=== PATIENT | female | born 1995 | race Caucasian/White ===

== ENCOUNTER 2020-04-29 12:25 | Outpatient (CLI) | payer BC, MEDICAID, SELFPAY ==
--- NOTE | ~2020-04-29 | XR_ITS ---
XR lumbar spine 2-3V DATE: 04/29/2020 12:49 INDICATION: Radiculopathy TECHNIQUE: AP, lateral, coned lateral lumbosacral views COMPARISON: None FINDINGS: Normal alignment of the lumbar spine. No fracture or bone destruction or spondylolisthesis. Lumbar and lumbosacral interspaces are well preserved. Normal sacroiliac joints. Incidentally noted is a prominent of fecal material in the colon. IMPRESSION: Negative lumbar spine Reviewed, dictated and finalized at location A. IMPRESSION: Negative lumbar spine
== END 2020-04-29 12:26 | disposition home or self-care (01) ==
PROVIDERS: PCP Nurse Practitioner Family; Visit Provider Nurse Practitioner Family
DX: M54.16 Radiculopathy, lumbar region (principal)
CPT/HCPCS: 72100

== ENCOUNTER 2020-06-22 17:47 | Emergency (ER) | payer BC, SELFPAY ==
[2020-06-22 18:47] VITALS: PULSE 110; RESP 20; TEMP 37.3; O2SAT 100
--- NOTE | 2020-06-22 22:33 | PC.NURSE ---
Pt called twice with no answer.
== END 2020-06-22 22:33 | disposition left against medical advice (07) ==
PROVIDERS: PCP Nurse Practitioner Family
DX: Z53.21 Procedure and treatment not carried out due to patient leaving prior to being seen by health care provider (principal)
CPT/HCPCS: 99199

== ENCOUNTER → 2021-02-28 04:09 | Outpatient (CLI) | payer BC, SELFPAY ==
[2021-02-28 20:06] LABS: SARS-CoV-2 RNA PCR Negative
== END ==
PROVIDERS: PCP Nurse Practitioner Family; Visit Provider Obstetrics & Gynecology
DX: Z01.812 Encounter for preprocedural laboratory examination (principal); Z20.822 Contact with and (suspected) exposure to COVID-19
CPT/HCPCS: C9803; U0003; U0005

== ENCOUNTER 2021-02-28 09:43 | Outpatient (CLI) | payer BC, SELFPAY | END 2021-02-28 09:44 | disposition home or self-care (01) | LOC: ANHSURGERY 09:45 | PROVIDERS: PCP Nurse Practitioner Family; Visit Provider Obstetrics & Gynecology | DX: Z01.812 Encounter for preprocedural laboratory examination (principal); R10.2 Pelvic and perineal pain | CPT/HCPCS: 36415; 86850; 86900; 86901 ==

== ENCOUNTER 2021-03-03 04:00 | Day surgery (SDC) | payer BC, SELFPAY ==
[2021-02-23 11:44] VITALS: BMI 37.0
--- NOTE | 2021-02-28 13:06 | PM.IMHP ---
H&P: HPI History of Present Illness Date/Time: 02/28/21 13:06 25 year 1 para 1 admitted for diagnostic laparoscopy. She has pain, discomfort and dyspareunia. She has a family history of endometriosis. Ultrasound showed a lot of free fluid in pelvis. Risks and benefits reviewed including but not exclusive of , aspiration pneumonia, bleeding, transfusion, perforation injury to bowel, bladder, ureter, or other internal organs with need for open laparotomy. She received the [employer] handout entitled laparoscopy and had all questions answered in asked to proceed Chief Complaint: Pelvic pain Review of Systems Review of Systems: All systems reviewed & are unremarkable except as noted in HPI and below PMFSH Past Medical History Medical History Anxiety Depression Headache, migraine Surgical History Surgical History H/O section Family History Family History Grandparent Diabetes mellitus Non-Hodgkin lymphoma Dementia Cerebrovascular accident Mother Breast cancer Depression Father Alcohol abuse Bipolar affective disorder Grandparent Breast cancer Brain cancer Carcinoma of colon Grandparent Carcinoma of colon Social History Social History Smoking status: Never smoker Alcohol intake: never Substance use: never Substance use type: does not use Gender identity (if verbalized by the patient): Female Spiritual care concerns: No Meds Home Medications and Allergies Home Medications Medication Instructions Recorded Confirmed Type citalopram 20 mg PO DAILY 02/23/21 02/23/21 History cyclobenzaprine 10 mg PO HS PRN 02/23/21 02/23/21 History Allergies Allergy/AdvReac Type Severity Reaction Status Date / Time No Known Allergies Allergy Unknown Verified 02/23/21 11:42 Exam Const: General: no acute distress Eyes: General: appearance normal, both eyes and all related structures Neck: Neck: supple and no JVD Thyroid: thyroid normal Resp: Effort & Inspection: normal respiratory effort Auscultation: clear to auscultation bilaterally Cardio: Rate: regular rate Rhythm: regular rhythm GI: Inspection: non-distended GI Palp: Yes Soft to palpation, No Tenderness to palpation present (GI) and No Guarding due to palpation present (GI) Auscultation: normal bowel sounds : External Female Exam: normal external appearance Speculum Exam - Vagina: normal appearance of the vagina Speculum Exam - Cervix: Cervical os closed Bimanual exam- vagina & uterus: Uterine tenderness Bimanual Exam- Adnexa, other: tender Skin: General skin exam: no rashes or lesions noted Extrem: General: normal to inspection and no edema Psych: Mental Status: mental status grossly normal Affect: normal affect Assessment and Plan Additional Plan impression: Pelvic pain plan:Diagnostic laparoscopy
--- NOTE | 2021-03-02 12:47 | WPDANESEPPF ---
Anes - Initial Pre Proc Eval Procedure: Operation Date: 03/03/21 13:30 Proposed Procedures p Diagnostic Laparoscopy - Jackson Abdi MD Date/Time: 03/02/21 12:47 Surgeon: Jackson Abdi MD Pre Op Diagnosis: pelvic pain, irreg bleeding Patient Data Age: 25 Gender: F Height: 1.68 m Weight: 104.3 kg Allergies Allergy/AdvReac Type Severity Reaction Status Date / Time No Known Allergies Allergy Unknown Verified 03/03/21 12:13 Home Medications Medication Instructions Recorded Confirmed Type citalopram 20 mg PO DAILY 02/23/21 03/03/21 History cyclobenzaprine 10 mg PO HS PRN 02/23/21 03/03/21 History hydrocodone-acetaminophen 1 tablet PO Q4H PRN #30 tablet 03/03/21 Rx Patient hx anesthesia problems: none Family hx anesthesia problems: none PMFSH Past Medical History Medical History (Updated 03/03/21 @ 06:48 by Jackson Abdi MD) Anxiety Depression Headache, migraine Surgical History Surgical History H/O section Family History Family History Grandparent Diabetes mellitus Non-Hodgkin lymphoma Dementia Cerebrovascular accident Mother Breast cancer Depression Father Alcohol abuse Bipolar affective disorder Grandparent Breast cancer Brain cancer Carcinoma of colon Grandparent Carcinoma of colon Social History Social History Smoking status: Never smoker Alcohol intake: current Substance use: never Substance use type: does not use Living arrangements: with family Gender identity (if verbalized by the patient): Female Spiritual care concerns: No Anes - Eval Final PreProcedure Day of Procedure 03/02/21 12:47 Patient weight: obese Heart: regular rate and rhythm Lungs: clear to auscultation and normal air movement Airway: Mallampati scale class II Neurological: alert and oriented Last oral intake: >/= 8 hours ASA classification: II Emergent: no Anesthetic plan: proceed Anesthesia type and monitoring: general ETT and standard monitoring Informed Consent: The patient's anesthetic plan and its attendant risks and benefits were discussed with the patient/family/POA. Questions were solicited and answers provided to the satisfaction of the patient/family/POA.
[2021-03-03] VITALS (9 sets, daily range): BP systolic 103–130; BP diastolic 55–80; PULSE 78–108; RESP 12–20; TEMP 36.3–36.9; O2SAT 98–100
--- NOTE | 2021-03-03 06:47 | WPDHPUPDATE1 ---
History and Physical Update Update Date/Time: 03/03/21 06:47 History and Physical has been reviewed, including an updated exam of the patient. There are NO changes in the patient's condition. Risks, benefits, and alternatives have been discussed and questions answered. Patient agrees to proceed with procedure.
[2021-03-03] MEDS: ACETAMINOPHEN 500 MG TABLET 1000 MG PO (11:52)
[2021-03-03] MEDS: KETOROLAC 15 MG/ML VIAL (*BKC) IV PUSH (11:53)
[2021-03-03] MEDS: LACTATED RINGERS 1,000 ML 30 ML IV CONT ×2 (11:53→14:29)
--- NOTE | 2021-03-03 14:24 | PM.PROC ---
Procedure Note - Detailed Date of procedure: 03/03/21 Pre-op diagnosis: pelvic pain, irreg bleeding Surgeon: Jackson Abdi MD Postop diagnosis: Pelvic pain/endometriosis/irregular bleeding Procedure: Laparoscopy with destruction of endometriosis Anesthesia: General endotracheal EBL: 5cc Findings: 25cc of serosanguineous fluid in the cul-de-sac. Multiple areas of powder burn endometriosis along each uterosacral ligament. Normal-appearing ovaries and tubes. Normal-appearing appendix Complications: None Description of procedure: The patient was prepped and draped in the normal sterile fashion and placed in the dorsal lithotomy position. Under excellent general endotracheal anesthesia weighted speculum was placed the posterior fornix of vagina. Anterior lip of the cervix was grasped with a single-tooth tenaculum in the Gomes's cannula inserted to the cervix. The 2 were connected together it to be used for uterine manipulation. The bladder emptied of clear urine and the weighted speculum removed. Gloves were changed An infraumbilical incision was made the Veress needle passed in the abdomen. The abdomen filled with CO2 gas [id number]. The 5mm trocar advanced under direct visualization assuring no injury. Patient placed in Trendelenburg and a suprapubic incision made. The 5mm trocar was advanced under direct visualization assuring no injury. The 25cc of serosanguineous fluid was suctioned from the cul-de-sac. The areas of endometriosis along the uterosacral ligament were cauterized at 45 w per 2nd. Irrigation undertaken to clear. No other abnormalities were seen. The lower site removed. The gas removed from the abdomen. The incisions closed with 4 O Monocryl and glue after the ports removed. The patient tolerated the procedure well. All sponge, needle, instrument counts were correct. There were no immediate complications
[2021-03-03] MEDS: fentaNYL CITRATE INJ (*CRX) 100 MCG/2 ML VIAL 25 MCG IV PUSH ×5 (14:57→15:24)
[2021-03-03] MEDS: oxyCODONE HCL (*CRX) 5 MG TAB IR PO (15:22)
--- NOTE | 2021-03-03 15:34 | SUR.PHASEI ---
PT AWAKE, RESTING QUIETLY. STATES SHES SORE BUT IM OK
== END 2021-03-03 16:25 | disposition home or self-care (01) ==
PROVIDERS: PCP Nurse Practitioner Family; Visit Provider Obstetrics & Gynecology
PROC: (CPT 49320; principal; 2021-03-03 13:30)
DX: R10.2 Pelvic and perineal pain (principal); N93.9 Abnormal uterine and vaginal bleeding, unspecified; N80.3 Endometriosis of pelvic peritoneum; N94.10 Unspecified dyspareunia; F41.8 Other specified anxiety disorders
CPT/HCPCS: 58662; A9270; J0330; J1100; J1885; J2250; J2405; J2704; J3010; J7120

== ENCOUNTER 2021-04-15 13:08 | Emergency (ER) | payer BC, SELFPAY ==
[2021-04-15 13:14] VITALS: BP 127/76; PULSE 113; RESP 20; TEMP 37; O2SAT 100
--- NOTE | 2021-04-15 14:12 | ED.SKABFB ---
HPI - Skin/Abscess/Foreign Bdy General Chief complaint: Skin/Abscess/Foreign Body Stated complaint: right cheek swollen and red Source: patient Mode of arrival: ambulatory Limitations: no limitations History of Present Illness HPI narrative: Patient is a 25 year old female who presents with abscess to right face. Patient reports being seen at [facility] on and started on retinae cream. Patient reports abscess increasing in size and pain. Patient denies drainage, denies fever, chills or body aches. Patient has no significant medical history or other complaints at this time. MD complaint: abscess/boil Related Data Home Medications Medication Instructions Recorded Confirmed cyclobenzaprine 10 mg PO HS PRN 02/23/21 04/15/21 citalopram 10 mg PO DAILY 04/15/21 04/15/21 gabapentin 300 mg PO DAILY 04/15/21 04/15/21 tretinoin 0.025 applic TOPICAL DAILY 04/15/21 04/15/21 Allergies Allergy/AdvReac Type Severity Reaction Status Date / Time No Known Allergies Allergy Unknown Verified 04/15/21 13:33 Review of Systems Review of Systems: Narrative: CONSTITUTIONAL: Denies fever, chills, or sweats. EYES: Denies visual changes, redness, or discharge. ENT: Denies rhinorrhea, congestion, sore throat, or otalgia. CARDIOVASCULAR: Denies chest pain, palpitations, or edema. RESPIRATORY: Denies cough or dyspnea. GASTROINTESTINAL: Denies abdominal pain, nausea, vomiting, or diarrhea. GENITOURINARY: Denies dysuria or hematuria. SKIN: Reports abscess to right face MUSCULOSKELETAL: Denies back pain, joint pain, or myalgia. NEUROLOGIC: Denies headache, numbness, dizziness, or weakness. PSYCHIATRIC: Denies anxiety or depression. [facility] Past Medical History Medical History (Updated 04/15/21 @ 14:22 by FERCHO Zazueta) Anxiety Depression Headache, migraine Surgical History Surgical History H/O section Family History Family History Grandparent Diabetes mellitus Non-Hodgkin lymphoma Dementia Cerebrovascular accident Mother Breast cancer Depression Father Alcohol abuse Bipolar affective disorder Grandparent Breast cancer Brain cancer Carcinoma of colon Grandparent Carcinoma of colon Social History Social History Smoking status: Never smoker Alcohol intake: current Substance use: never Substance use type: does not use Gender identity (if verbalized by the patient): Female Spiritual care concerns: No Comments At the time of signature, I have reviewed and agree with nursing past medical, surgical, social, and family history unless otherwise noted. Please see nursing chart for further information. There is no relevant family history pertinent to the presenting complaint. Exam Narrative: Exam Narrative: GENERAL: Well-appearing, well-nourished, and in no acute distress. HEAD: Normocephalic, atraumatic. EYES: EOMI. No redness or drainage. Conjunctiva are normal. ENT: Mucous membranes pink and moist. CHEST: No respiratory distress. HEART: Regular rate and rhythm. EXTREMITIES: Normal range of motion. No edema. SKIN: Approximate 3 x 3 cm area of erythema and edema to right face, scabbing noted in center, patient denies drainage, tender with palpation NEURO: No focal deficits. Alert and oriented x3. Gait steady. PSYCH: Normal affect. No signs of depression or anxiety. Course Vital Signs Vital signs: Vital Signs Temperature 37.0 C 04/15/21 13:14 Pulse Rate 113 H 04/15/21 13:14 Respiratory Rate 04/15/21 13:14 Blood Pressure 127/76 04/15/21 13:14 Pulse Oximetry 100 04/15/21 13:14 Temperature 37.0 C 04/15/21 13:14 Pulse Rate 113 H 04/15/21 13:14 Respiratory Rate 04/15/21 13:14 Blood Pressure 127/76 04/15/21 13:14 Pulse Oximetry 100 04/15/21 13:14 Rev
[2021-04-15] MEDS: TETANUS,DIPHTHERIA,AC PERTUSSIS ADULT (0.5 ML) BOOSTRIX IM (14:44)
[2021-04-15] MEDS: KETOROLAC (*BKC) 60 MG/2 ML VIAL IM (14:45)
== END 2021-04-15 15:03 | disposition home or self-care (01) ==
PROVIDERS: Emergency Provider Nurse Practitioner; PCP Nurse Practitioner Family
DX: L03.211 Cellulitis of face (principal); L02.01 Cutaneous abscess of face; Z23 Encounter for immunization; F41.9 Anxiety disorder, unspecified
CPT/HCPCS: 10160; 90471; 90715; 96372; 99213; G0463; J1885

== ENCOUNTER 2021-05-01 09:56 | Emergency (ER) | payer BC, SELFPAY ==
[2021-05-01 10:04] VITALS: BP 130/76; PULSE 92; RESP 16; TEMP 36.8; O2SAT 100
[2021-05-01 10:23] VITALS: BP 130/76; PULSE 92; RESP 16; TEMP 36.8; O2SAT 100
--- NOTE | 2021-05-01 10:46 | ED.EYEPROB ---
HPI - Eye Problem General Chief complaint: Skin/Abscess/Foreign Body Stated complaint: Right eye swollen Time Seen by Provider: 05/01/21 10:47 Source: patient, RN notes reviewed and old records reviewed Mode of arrival: ambulatory Limitations: no limitations History of Present Illness HPI Narrative: 25 year old female who presents to [facility] care with complaints of having pimple type of lesion to the right side of her upper face near hairline she noted yesterday which she squeezed with clear fluid coming out. She reports this morning she noted swelling of her right upper face and to her right upper eyelid with some discomfort going to her right ear. Patient reports that she has no visual changes with no sharp pain in her eye, visual acuity 20/20 to bilateral eyes with no corrective lenses. Patient stats that she had right cheek lesion drained on April 15 and was put on antibiotics. Patient denies any known fevers, chills or sweats, has been taking Tylenol for her discomfort. MD chief complaint: other (swollen right eyelid) Onset (ago): day(s) (1) Onset description: sudden Duration: constant Location: right eye (upper eyelid) Place: other (no injury to eye) Severity scale (1-10): 6 If Pain, Quality: aching Context: other (pimple type of lesion on her upper right face) Treatments Prior to Arrival: other (Tylenol) Related Data Home Medications Medication Instructions Recorded Confirmed gabapentin 300 mg PO HS 04/15/21 05/01/21 citalopram 20 mg PO DAILY 05/01/21 05/01/21 tretinoin 1 applic TOPICAL DAILY 05/01/21 05/01/21 Allergies Allergy/AdvReac Type Severity Reaction Status Date / Time No Known Allergies Allergy Unknown Verified 05/01/21 10:23 Review of Systems Review of Systems: Narrative: CONSTITUTIONAL: Denies fever, chills, or sweats. EYES: Denies visual changes, redness, or discharge.swelling to right upper eyelid ENT: Denies rhinorrhea, congestion, sore throat, or otalgia. CARDIOVASCULAR: Denies chest pain, palpitations, or edema. RESPIRATORY: Denies cough or dyspnea. GASTROINTESTINAL: Denies abdominal pain, nausea, vomiting, or diarrhea. GENITOURINARY: Denies dysuria or hematuria. SKIN: Denies rash or itching.scabbed lesion to right temporal hairline with some surrounding redness no induration of tissue.. MUSCULOSKELETAL: Denies back pain, joint pain, or myalgia. NEUROLOGIC: Denies headache, numbness, or weakness. PSYCHIATRIC: Denies anxiety or depression. All systems reviewed & are unremarkable except as noted in HPI and below PMFSH Past Medical History Medical History (Updated 05/02/21 @ 15:48 by Tracy Bravo NP) Anxiety Depression Headache, migraine Surgical History Surgical History (Updated 05/01/21 @ 11:01 by Tracy Bravo NP) H/O section Hx of laparoscopy removal of ovarian cyst, endometriosis Family History Family History Grandparent Diabetes mellitus Non-Hodgkin lymphoma Dementia Cerebrovascular accident Mother Breast cancer Depression Father Alcohol abuse Bipolar affective disorder Grandparent Breast cancer Brain cancer Carcinoma of colon Grandparent Carcinoma of colon Social History Social History Smoking status: Never smoker Alcohol intake: current Alcohol use details: twice a year Substance use: never Substance use type: does not use Gender identity (if verbalized by the patient): Female Spiritual care concerns: No Comments At time of signature, agree with nursing past medical, surgical, social and family history. There is no relevant family history pertinent to the presenting complaint Exam Narrative: Exam Narrative: GENERAL: Well-appearing, well-nourished, and in no acute distress. HEAD: Normocephalic, atraumatic. EYES: PERRLA and EOMI.no sharp pain to eye sclera clear and conjunct
== END 2021-05-01 11:10 | disposition home or self-care (01) ==
PROVIDERS: Emergency Provider Registered Nurse; PCP Nurse Practitioner Family
DX: L02.01 Cutaneous abscess of face (principal); H02.841 Edema of right upper eyelid; F41.9 Anxiety disorder, unspecified; F32.9 Major depressive disorder, single episode, unspecified
CPT/HCPCS: 99213; G0463

== ENCOUNTER 2022-05-31 14:22 | Outpatient (RCR) | payer BC, OTHER, SELFPAY ==
[2022-04-12 11:42] VITALS: BP 112/73; PULSE 95
[2022-04-19 10:24] VITALS: BP 109/64; PULSE 91
[2022-04-26 10:35] VITALS: BP 114/72; PULSE 100
[2022-05-03 09:54] VITALS: BP 116/76; PULSE 90
[2022-05-10 13:02] VITALS: BP 121/76; PULSE 95
[2022-05-16 10:46] VITALS: BP 115/67; PULSE 89
[2022-05-24 10:13] VITALS: BP 130/79; PULSE 97
[2022-05-31 14:59] VITALS: BP 121/77; PULSE 82
== END 2022-07-11 10:07 | disposition home or self-care (01) ==
LOC: ANHOBOP 14:22
PROVIDERS: PCP Nurse Practitioner Family; Visit Provider Obstetrics & Gynecology
DX: O36.8990 Maternal care for other specified fetal problems, unspecified trimester, not applicable or unspecified (principal); Q27.0 Congenital absence and hypoplasia of umbilical artery; Z3A.31 31 weeks gestation of pregnancy; Z3A.33 33 weeks gestation of pregnancy; Z3A.34 34 weeks gestation of pregnancy; Z3A.35 35 weeks gestation of pregnancy; Z3A.37 37 weeks gestation of pregnancy; Z3A.38 38 weeks gestation of pregnancy
CPT/HCPCS: 59025

== ENCOUNTER 2022-06-06 13:27 | Outpatient (CLI) | payer BC, OTHER, SELFPAY ==
[2022-06-06 13:46] LABS: Hematocrit 32.2 % (37.0-47.0); Hemoglobin 10.3 g/dL (12.0-15.0); Mean Corpuscular Hemoglobin 26.4 pg (26-34); Mean Corpuscular Volume 82.6 fl (80-100); Mean Platelet Volume 8.3 fl (7.4-10.4); Platelet Count Result 277 k/mm3 (150-375); Red Cell Distribution Width 14.1 % (11.5-14.5); White Blood Count 8.4 K/mm3 (4.5-10.0)
[2022-06-07 07:20] LABS: Rapid Plasma Reagin Non-Reactive (NonReactive)
== END 2022-06-06 13:28 | disposition home or self-care (01) ==
LOC: ANHLAB 13:31
PROVIDERS: PCP Nurse Practitioner Family; Visit Provider Obstetrics & Gynecology
DX: Z01.818 Encounter for other preprocedural examination (principal)
CPT/HCPCS: 36415; 85027; 86592; 86850; 86900; 86901

== ENCOUNTER 2022-06-07 05:28 | Inpatient (IN) | payer BC, OTHER, SELFPAY ==
--- NOTE | 2022-06-04 18:05 | PM.IMHP ---
H&P: HPI History of Present Illness Date/Time: 06/04/22 18:05 Chief Complaint: Term with previous section Narrative: A 26-year-old 2 para 1 whose last menstrual period was unknown September 10, EDC is 06/02/2022, confirmed 6 week ultrasound presents at term for repeat section. Her been complicated by 2 vessel cord but testing has been reassuring. She is negative for group B strep PMFSH Past Medical History Medical History Anxiety Depression Headache, migraine Surgical History Surgical History H/O section Hx of laparoscopy removal of ovarian cyst, endometriosis Family History Family History Grandparent Diabetes mellitus Non-Hodgkin lymphoma Dementia Cerebrovascular accident Mother Breast cancer Depression Father Alcohol abuse Bipolar affective disorder Grandparent Breast cancer Brain cancer Carcinoma of colon Grandparent Carcinoma of colon Social History Social History Smoking status: Never smoker Alcohol intake: current Alcohol use details: twice a year Substance use: never Substance use type: does not use Gender identity (if verbalized by the patient): Female Spiritual care concerns: No Meds Home Medications and Allergies Home Medications Medication Instructions Recorded Confirmed Type vit no.95-ferrous 1 tablet PO DAILY 04/12/22 04/26/22 History fumarate 28 mg-folic acid 800 mcg tablet () cyclobenzaprine 10 mg tablet 10 mg PO TID PRN Back Pain 04/26/22 04/26/22 History sertraline 50 mg tablet 50 mg PO DAILY 04/26/22 04/26/22 History Allergies Allergy/AdvReac Type Severity Reaction Status Date / Time No Known Allergies Allergy Unknown Verified 05/01/21 10:23 Exam Const: General: cooperative, healthy appearing and comfortable Resp: Effort & Inspection: normal respiratory effort Cardio: Rate: regular rate Rhythm: regular rhythm GI: Inspection: normal to inspection : External Female Exam: normal external appearance Bimanual exam- vagina & uterus: enlarged and soft Assessment and Plan Assessment and plan (1) Term : Code(s): Z34.90 - Encounter for supervision of normal , unspecified, unspecified trimester Status: Acute (2) Previous section: Code(s): Z98.891 - History of uterine scar from previous surgery Status: Acute (3) 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
--- NOTE | 2022-06-06 12:53 | P.PNAN_ITS ---
Anes - Initial Pre Proc Eval Procedure: Operation Date: 06/07/22 12:00 Proposed Procedures p Repeat Section - Jackson Florez MD Date/Time: 06/06/22 12:53 Surgeon: Jackson Florez MD Pre Op Diagnosis: C/S Patient Data Age: 26 Gender: F Height: Weight: Allergies Allergy/AdvReac Type Severity Reaction Status Date / Time No Known Allergies Allergy Unknown Verified 05/01/21 10:23 Home Medications Medication Instructions Recorded Confirmed Type vit no.95-ferrous 1 tablet PO DAILY 04/12/22 06/07/22 History fumarate 28 mg-folic acid 800 mcg tablet () cyclobenzaprine 10 mg tablet 10 mg PO TID PRN Back Pain 04/26/22 06/07/22 History sertraline 50 mg tablet 50 mg PO DAILY 04/26/22 06/07/22 History hydrocodone 5 mg-acetaminophen 325 1 tablet PO Q4H PRN pain #30 tabs 06/07/22 Rx mg tablet Patient hx anesthesia problems: none Family hx anesthesia problems: none Results Review: All pre-operative results and documents have been reviewed as part of the pre- operative evaluation. [facility] Past Medical History Medical History Anxiety Depression Headache, migraine Surgical History Surgical History H/O section Hx of laparoscopy removal of ovarian cyst, endometriosis Family History Family History Grandparent Diabetes mellitus Non-Hodgkin lymphoma Dementia Cerebrovascular accident Mother Breast cancer Depression Father Alcohol abuse Bipolar affective disorder Grandparent Breast cancer Brain cancer Carcinoma of colon Grandparent Carcinoma of colon Social History Social History Smoking status: Never smoker Alcohol intake: current Alcohol use details: twice a year Substance use: never Substance use type: does not use Gender identity (if verbalized by the patient): Female Spiritual care concerns: No Anes - Eval Final PreProcedure Day of Procedure 06/06/22 12:53 Patient weight: obese Heart: regular rate and rhythm Lungs: clear to auscultation and normal air movement Airway: Mallampati scale class II Neurological: alert and oriented Last oral intake: >/= 8 hours ASA classification: II Emergent: no Anesthetic plan: proceed Anesthesia type and monitoring: regional spinal and standard monitoring Results Review: All pre-operative results and documents have been reviewed as part of the pre- operative evaluation. Informed Consent: The patient's anesthetic plan and its attendant risks and benefits were discussed with the patient/family/POA. Questions were solicited and answers provided to the satisfaction of the patient/family/POA.
[2022-06-07] VITALS (54 sets, daily range): BP systolic 109–144; BP diastolic 66–115; PULSE 56–106; RESP 11–20; TEMP 36.2–37.1; O2SAT 96–100; BMI 39.8
--- NOTE | 2022-06-07 05:40 | LDADM ---
This patient, Ankita De La Cruz, was admitted to Labor/Delivery/Recovery 120 on 06/07/22 at 05:28. Plans for labor, pain management and were discussed with patient. Patient/family oriented to hospital policies and general routines including ID bracelet, bed and alarms, visiting hours, pain management, procedures, bathroom and other care routines, personal items, smoking policy, room service/diet and guest tray routines, security routines, and visiting hours. Patient/Family are encouraged to report perceived risks to care and to ask questions if they do not understand what they are told or what they should do. See [facility]BIX for further documentation.
--- NOTE | 2022-06-07 06:41 | WPDHPUPDATE1 ---
History and Physical Update Update Date/Time: 06/07/22 06:41 History and Physical has been reviewed, including an updated exam of the patient. There are NO changes in the patient's condition. Risks, benefits, and alternatives have been discussed and questions answered. Patient agrees to proceed with procedure.
[2022-06-07] MEDS: LACTATED RINGERS 1,000 ML 999 ML IV CONT (06:56)
[2022-06-07] MEDS: ceFAZolin 2 GM/D5W 50 ML 2 GM/50 ML BAG IVPB (07:23)
--- NOTE | 2022-06-07 08:13 | W.PM.PROC2 ---
Procedure Note - Detailed Date of Procedure 06/07/22 Pre-op Diagnosis C/S Post-op Diagnosis Same Procedure Performed Repeat low-transverse section Surgeon Jackson Florez MD Anesthesia Spinal Indications This is a 26-year-old at term with previous section for repeat section Findings Male infant 7lb 15oz Apgars 7 and 9 [id number] respectively normal-appearing ovaries and tubes as well as gravid uterus Description of Procedure Patient is prepped draped in normal sterile fashion placed in supine position. Under excellent spinal anesthetic the abdomen is entered through the previous Pfannenstiel incision progressive layers of fascia. Fascia incised midline care number out fashion bilaterally. Underlying muscles sharply dissected parietal peritoneum male by Isela clamps. This was carried superiorly and inferiorly dome bladder. Bladder blade was placed the bladder flap flap formed. Bladder blade returned low-transverse incision made the head delivered in the BELTRAN position. Nuchal cord checked noted be loose x1 we II occiput. Anterior posterior shoulder delivered spontaneously cord clamped [address] passed off the table then excellent cry given Apgars was 7 and 9 at 1 and 5minutes respectively. Placenta then delivered intact manually. Uterus delivered on the abdomen wrapped in moist towel. After assuring no membranes or debris remained in the uterus, the uterus closed continuous running 0 Vicryl from lateral edge to lateral edge. This was followed by 2nd imbricating running locking 0 Vicryl from lateral edge to lateral edge. Hemostasis was assured the ovaries and tubes appeared within normal limits uterus returned the abdomen. Laps removed and accounted for clot and debris removed from the abdomen the hysterotomy incision inspected 1 last time and noted to be hemostatic. The fascia then closed with continuous running 0 Vicryl from lateral edge to midline bilaterally. Irrigation subcutaneous layer and the skin closed with 4 0 Vicryl and glue. Blood loss was 745 QBL. All sponge, needle, instrument counts were correct. There were no immediate complications Estimated Blood Loss 745 Drains No Packing No Pathology None sent Complications No immediate complications Condition Stable Disposition Floor
[2022-06-07] MEDS: OXYTOCIN 30 UNITS/NS 500 ML 30 UNITS/500 ML BAG 125 UNITS IV CONT (08:45)
[2022-06-07] MEDS: LACTATED RINGERS 1,000 ML 125 ML IV CONT (08:45)
--- NOTE | 2022-06-07 09:45 | PC.NURSE ---
Seymour Florez updated with pt QBL. Order received for pt to have Methergine x1.
[2022-06-07] MEDS: METHYLERGONOVINE MALEATE 0.2 MG/ML VIAL IM (09:50)
[2022-06-07] MEDS: LORATADINE 10 MG TABLET PO (09:51)
[2022-06-07] MEDS: MORPHINE SULFATE INJ (*CRX) 10 MG/ML AMP 2 MG IV PUSH (10:20)
--- NOTE | 2022-06-07 10:49 | PC.NURSE ---
Dr. Seymour Florez at the bedside assessing bleeding. MD helm with bleeding at this time. Okay for pt to be transferred to
--- NOTE | 2022-06-07 11:00 | OBPPTRN ---
Patient transferred to post room #285 via stretcher. Support person present. Oriented to unit, room, information board, rooming in, admission packet and security measures. Patient verbalizes understanding.
[2022-06-07] MEDS: HYDROcodone/acetaminophen (*CRX) 5-325 MG TABLET 1 TAB PO ×3 (12:09→18:32)
[2022-06-07] MEDS: diphenhydrAMINE HCl INJ 50 MG/ML VIAL 25 MG IV PUSH ×2 (12:23→15:40)
[2022-06-07] MEDS: DEXTROSE 5%/0.45% SOD CHL 1,000 ML 125 ML IV CONT (13:10)
[2022-06-07] MEDS: IBUPROFEN 600 MG TABLET PO ×2 (15:15→21:30)
[2022-06-07] MEDS: POLYSACCHARIDE IRON COMPLEX 150 MG CAPSULE PO (16:02)
[2022-06-07] MEDS: MULTIVIT/MIN/PREN/FOL AC/IRON TABLET 1 TAB PO (16:02)
[2022-06-07] MEDS: DOCUSATE SODIUM 100 MG CAPSULE PO (16:02)
[2022-06-07] MEDS: HYDROcodone/acetaminophen (*CRX) 10-325 MG TABLET 1 TAB PO (21:30)
[2022-06-08] MEDS: HYDROcodone/acetaminophen (*CRX) 10-325 MG TABLET 1 TAB PO ×7 (01:48→22:10)
--- NOTE | 2022-06-08 04:48 | PM.OBPNVD ---
OB - PN: Subj Subjective Date/time seen: 06/08/22 04:48 Patient comments: no complaints and pain well controlled baby status: doing well OB - PN A/P Plan day: 1 Plan: routine care Time Spent With Patient Time: Total time spent is greater than 50% in coordination of care (as documented) at patient's floor/unit and/or counseling patient: Time with patient: less than 15 minutes Exam Const: General: cooperative, healthy appearing and comfortable Resp: Effort & Inspection: normal respiratory effort GI: Inspection: normal to inspection and incision (Clean dry and intact)
--- NOTE | 2022-06-08 04:50 | PM.DS ---
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 Her hospital course was unremarkable thereafter. She remained afebrile. She was up, voiding without difficulty, ambulating, generally without complaints. Routine discharge instructions were given Time Spent with Patient Time attestation: Total time spent providing and/or coordinating discharge services: Discharge Plan Discharge Attending physician on discharge: Jackson Gerardo Discharging Clinician: Jackson Gerardo Patient Disposition: Home, Self-Care Activity: may shower, no straining and pelvic rest Diet: heart healthy Wound Care Instructions: follow printed instructions Discharge Instructions: Education: Mom and Baby Guide Given to: Mother Follow-Up: Call your delivering provider's office for an appointment to be seen in: 4 Weeks Mom and baby should come to the [facility] for the follow-up appointment. Appointment Date/Time: June 11, 2022 at 10:00 am What to expect at your follow-up visit: Blood Pressure Check Physical Assessment Call [phone] if you are unable to keep your appointment time. BREAST CARE: * Wear a snug supportive bra. * For engorgement discomfort: Breast Feeding: * Apply warm moist washcloths * Express milk as needed to relieve engorgement * Wear loose clothing * For sore nipples: * Identify correct latch-on * Apply warm moist washcloths before and after nursing * Air dry nipples after nursing * May apply Lansinoh cream to nipples ABDOMINAL INCISION: * Allow incision to air dry * Do NOT use lotions for powders on your incision * When showering, allow soap and water to run over the incision, but do not wash incision PERINEAL CARE: * Until bleeding stops, use your rusty bottle after urinating * Change your pad frequently throughout the day * You may take sitz baths several times a day (fill your bathtub with warm water and soak for 20 minutes.) Do NOT bathe in the water * No tub baths until seen by your physician - You may shower ACTIVITY: * Rest as much as possible. * Do not exercise or lift anything heavier than your baby (such as laundry or other children.) * Avoid stairs or driving as much as possible. * Do not put anything into the vagina. No douching, tampons, or sexual activity until seen by physician. NOTIFY PHYSICIAN IF YOU HAVE ANY QUESTIONS OR IF ANY OF THE FOLLOWING SYMPTOMS OCCUR: * If your incision becomes red, swollen, or more painful than what you have experienced in the hospital. * If your vaginal bleeding becomes foul smelling. * If your vaginal bleeding becomes more heavy than a period or if your bleeding changes from pink to bright red. However, you may pass an occasional walnut-sized clot once or twice for the first week . * If you experience a sharp, shooting pain in you calves. * If you discover a hard, reddened area on your breast or if you experience flu-like symptoms. DIET: * Eat regular, well-balanced meals. * Drink plenty of fluids daily. If , drink to thirst. Call or return if temperature above 100.4? F, increased abdominal pain, increased vaginal bleeding or any new problems. Patient Instructions: Antibiotic Form Stand
[2022-06-08] MEDS: IBUPROFEN 600 MG TABLET PO ×3 (04:52→18:58)
[2022-06-08 06:12] LABS: Basophils Percent Auto 0.3 % (0.2-1.2); Eosinophils Percent Auto 0.4 % (0-4.4); Hematocrit 28.4 % (37.0-47.0); Immature Granulocyte Absolute 0.04 K/mm3 (0.00-0.031); Immature Granulocyte Percent A 0.4 % (0-0.5); Lymphocytes Absolute Auto 2.31 K/mm3 (0.9-3.2); Lymphocytes Percent Auto 21.9 % (18.3-44.2); Mean Corpuscular HGB Conc 31.7 g/dl (32-36); Mean Corpuscular Hemoglobin 26.6 pg (26-34); Mean Platelet Volume 8.8 fl (7.4-10.4); Monocytes Percent Auto 9.8 % (2.6-8.5); Neutrophils Absolute Auto 7.1 K/mm3 (1.3-6.7); Neutrophils Percent Auto 67.2 % (45.5-73.1); Platelet Count Result 249 k/mm3 (150-375); Red Blood Count 3.38 M/mm3 (4.2-5.4); Red Cell Distribution Width 14.1 % (11.5-14.5); White Blood Count 10.6 K/mm3 (4.5-10.0)
[2022-06-08] MEDS: MULTIVIT/MIN/PREN/FOL AC/IRON TABLET 1 TAB PO (07:42)
[2022-06-08] MEDS: POLYSACCHARIDE IRON COMPLEX 150 MG CAPSULE PO ×2 (07:43→16:12)
[2022-06-08] MEDS: DOCUSATE SODIUM 100 MG CAPSULE PO ×2 (07:43→16:13)
[2022-06-08 08:00] VITALS: PULSE 83; RESP 18; O2SAT 100
--- NOTE | 2022-06-08 08:03 | WPDANLDPN2 ---
Anes-Prog Note L&D Date/Time: 06/08/22 08:03 Comfortable throughout: section Neuraxial method: spinal Epidural/Spinal procedure site: clean & non-tender Neuro status: Neuro function grossly intact. Cardiovascular status: normal Respiratory status: normal Airway patency: baseline Mental status: baseline Post-Op hydration status: normal Vital Signs: Last Vital Signs Temp 36.8 C 06/07/22 23:45 Pulse 79 06/07/22 23:45 Resp 16 06/07/22 23:45 BP 119/66 06/07/22 23:45 Pulse Ox 100 06/07/22 23:45 O2 Del Method Room Air 06/07/22 15:15 Pain score (VAS): 10/23 I/O: Intake & Output 06/07/22 06/08/22 06/08/22 23:59 07:59 15:59 Intake Total 500 1000 Output Total 800 Balance 500 200 Post-procedural complaints: none Patient feedback: Patient satisfied with anesthetic care.
--- NOTE | 2022-06-08 08:04 | WPDANLDNPN2 ---
Anes-Prog Note L&D-Neuraxial Date/Time: 06/08/22 08:04 Neuraxial medications: intrathecal PF morphine Opiod-related complaints: none Patient feedback: Patient satisfied with post-operative pain management.
[2022-06-08 08:10] VITALS: BP 118/73; PULSE 83; RESP 18; TEMP 36.4; O2SAT 100
--- NOTE | 2022-06-08 16:16 | PC.NURSE ---
[id number] Introductions were made, then consulted with patient to assess needs related to . Mother led the conversation with her?plans to feed?her infant and the?experience so far. Resources provided for inpatient and outpatient services using a resource guide and mom/baby guide. Mother voiced understanding of information and requests assistance. Consulted with patient to assess needs related to . Mother works well with her infant with encouragement. Reviewed working with infant, breast, nipples and how to protect the nipples with an optimal deep latch, good positioning, and good hand washing. Encouraged understanding the benefits of skin to skin, responding to feeding cues, frequencies of feeding 8-12 times in 24 hours (approximately 2-3 hours), duration of feedings, milk production, intake/output feeding sheet and signs of adequate intake encouraging swallowing at the breast. Reviewed positioning and alignment, supporting breast, off-centered (asymmetrical latch) and leading with the chin with big open wide gape. latched optimally to the left breast in football position. Education given to mother of how to visualize suck/swallow ratios and drinking at the breast. Infant was able to maintain latch without discomfort to mother. Nipple care reviewed with optimal latch, good positioning, and to have clean hands when touching the nipple/breast with hand expression or . Resources used to facilitate learning were used from the mom and baby guide. Mother voiced understanding of the education shared, calling for assistance if the does not latch or if there is discomfort with . Reported to the primary RN.
[2022-06-08 18:51] VITALS: BP 115/73; PULSE 79; RESP 16; TEMP 36.8
[2022-06-09] MEDS: IBUPROFEN 600 MG TABLET PO ×2 (00:50→10:33)
[2022-06-09] MEDS: HYDROcodone/acetaminophen (*CRX) 10-325 MG TABLET 1 TAB PO ×3 (00:50→07:23)
[2022-06-09 07:20] VITALS: BP 107/68; PULSE 87; RESP 16; TEMP 36.8; O2SAT 98
[2022-06-09] MEDS: POLYSACCHARIDE IRON COMPLEX 150 MG CAPSULE PO (07:23)
[2022-06-09] MEDS: DOCUSATE SODIUM 100 MG CAPSULE PO (07:23)
[2022-06-09] MEDS: MULTIVIT/MIN/PREN/FOL AC/IRON TABLET 1 TAB PO (07:24)
[2022-06-09] MEDS: SIMETHICONE 80 MG TAB.CHEW PO (09:17)
--- NOTE | 2022-06-09 09:43 | PM.OBPNVD ---
OB - PN: Subj Subjective Date/time seen: 06/09/22 09:43 Narrative: Pain OK. Tolerating diet. Would like to go home. OB - PN: Obj Data Labs CBC & Chem 7: 06/08/22 05:49 OB - PN A/P Plan Comments: A: POD#2, doing well. P: Home to f/u 4 weeks. Exam Narrative: AVSS ABD soft, nontender, fundus firm. Incision c/d/i. EXT nontender
[2022-06-09] MEDS: HYDROcodone/acetaminophen (*CRX) 5-325 MG TABLET 1 TAB PO (10:31)
[2022-06-11 10:42] VITALS: BP 131/84; PULSE 74; RESP 20; TEMP 37; O2SAT 99
== END 2022-06-09 11:00 | disposition home or self-care (01) | DRG 788 ==
LOC: ANHLDR 06:41 → ANHOB2 06-09 10:02 → ANHLDR 06-12 13:15
PROVIDERS: Admitting Provider Obstetrics & Gynecology; PCP Nurse Practitioner Family; Visit Provider Obstetrics & Gynecology
PROC: 10D00Z1 Extraction of Products of Conception, Low, Open Approach (ICD-10-PCS; CPT 59514; principal; 2022-06-07 07:30)
DX: O34.219 Maternal care for unspecified type scar from previous cesarean delivery (principal); O69.89X0 Labor and delivery complicated by other cord complications, not applicable or unspecified; O99.344 Other mental disorders complicating childbirth; F32.A Depression, unspecified; O77.0 Labor and delivery complicated by meconium in amniotic fluid; Z3A.39 39 weeks gestation of pregnancy; Z37.0 Single live birth
CPT/HCPCS: 36415; 85025; A9270; J0131; J0690; J1100; J1200; J2210; J2270; J2274; J2370; J2405; J2590; J7120

== ENCOUNTER 2022-08-10 01:31 | Day surgery (SDC) | payer BC, OTHER, SELFPAY ==
[2022-07-31 15:44] VITALS: BMI 33.5
--- NOTE | 2022-07-31 15:45 | SUR.PREOP ---
Report to the Outpatient Waiting Room, entrance under the green pavilion located off [facility], at time _1130 on date _08/10/22 . Planned Procedure Time: 1330 . Time changes happen often and if your time is changed the preop area will call you the afternoon before. - You and your visitor will be asked to self-screen and do not enter if you have any COVID symptoms. - We encourage only one visitor and NO visitors under age 16 are allowed at this time. Your visitor will receive communication by the phone number that is given day of service. - The patient visitor is requested to social distance or may leave the building when not with patient due to restrictions. - A mask is required within the hospital. Patients may have clear liquids (water, carbonated beverages, clear teas, apple juice) until 3 hours prior to surgery with a maximum of 20 ounces. - No food from midnight until time of surgery - Infants may have breast milk until 4 hours before surgery, formula 6 hours prior to surgery. - Children will be allowed to drink immediately following surgery. If applicable, please bring a bottle or sippy cup to assist with drinking. Juice, water, soda, and popsicles are readily available. For infants on formula, please bring formula the day of surgery. Pacifiers are allowed. Take the following medications with a SIP of water the morning of surgery: __n/a Medications to discontinue per physician ____n/a Date to take last dose___n/a Please no make-up, nail french, hairspray, perfume, deodorant, or body powder the day of surgery. No jewelry (including any body piercings) or valuables the day of surgery, leave them at home. Please take a shower or bath the night before, or the morning of, surgery with an antibacterial soap. Wear comfortable, loose fitting clothing. Children are encouraged to wear pajamas. - Jewelry must be removed prior to entering the operating room. Rings and piercings that are not removed may be cut off. - The hospital will not accept responsibility for valuables. - Please leave all valuables, including medications, at home the day of surgery. If you are going home after surgery, a licensed cdl driver must drive you home. - NO public transportation without another adult. - We recommend that an adult stay with you for 24 hours following discharge. - We also recommend that you do not drive, make important decision, drink alcoholic beverages, or take any drugs that were not prescribed by your health care provider for at least 24 hours after your discharge time. For Pediatric surgeries, we recommend two adults accompany the child home. Follow any additional instructions given to you from your surgeon. If you or anyone in your household have experienced Covid symptoms in the past week, please notify your surgeon or the nurse liaison at the phone number below for possible testing. Telephone instructions given to lambert vizcarra and asked if any additional questions and then verbalized understanding. Patient advised to call surgeon office or pre surgery nurse liaison [phone] if any additional questions.
--- NOTE | 2022-08-08 11:34 | PM.IMHP ---
H&P: HPI History of Present Illness Date/Time: 08/08/22 11:34 Chief Complaint: Desires permanent sterilization with irregular bleeding Narrative: This is a 27-year-old female admitted for laparoscopic bilateral tubal ligation/hysteroscopy/dilatation curettage/Lin ablation. She has history of irregular bleeding and desires permanent irreversible sterilization. Risks and benefits of the procedure reviewed including but not exclusive of , aspiration pneumonia, bleeding, transfusion, perforation injury to bowel, bladder, ureters, or other internal organs with need for open laparotomy. She received the [employer] handout entitled sterilization for men and women. She received the [employer] handout entitled hysteroscopy as well as dilatation curettage respectively. She also received the Lin ablation handout. She had all questions answered and asked to proceed PMFSH Past Medical History Medical History Anxiety Depression Headache, migraine Surgical History Surgical History H/O section Hx of laparoscopy removal of ovarian cyst, endometriosis Family History Family History Grandparent Diabetes mellitus Non-Hodgkin lymphoma Dementia Cerebrovascular accident Mother Breast cancer Depression Father Alcohol abuse Bipolar affective disorder Grandparent Breast cancer Brain cancer Carcinoma of colon Grandparent Carcinoma of colon Social History Social History Smoking status: Never smoker Alcohol intake: current Alcohol use details: twice a year Substance use: never Substance use type: does not use Living arrangements: with family Gender identity (if verbalized by the patient): Female Spiritual care concerns: No Meds Home Medications and Allergies Home Medications Medication Instructions Recorded Confirmed Type sertraline 50 mg tablet 50 mg PO DAILY 04/26/22 07/31/22 History ferrous sulfate 325 mg (65 mg 325 mg PO DAILY #30 tabs 06/09/22 07/31/22 Rx iron) tablet ibuprofen 600 mg tablet 600 mg PO Q6H PRN cramps #30 tabs 06/09/22 07/31/22 Rx cyclobenzaprine 10 mg tablet 10 mg PO PRN 07/31/22 07/31/22 History gabapentin 300 mg capsule 300 mg PO PRN 07/31/22 07/31/22 History Allergies Allergy/AdvReac Type Severity Reaction Status Date / Time No Known Allergies Allergy Unknown Verified 07/31/22 15:27 Exam Const: General: cooperative, healthy appearing, comfortable and well groomed Nutritional Appearance: average body habitus Orientation/consciousness: oriented to person, oriented to place and oriented to time HENMT: Head: normal to inspection Chest: Chest palpation & inspection: normal inspection of the chest Resp: Effort & Inspection: normal respiratory effort Cardio: Rate: regular rate Rhythm: regular rhythm Heart sounds: S1 normal heart sound present and S2 normal heart sound present GI: Inspection: normal to inspection Auscultation: normal bowel sounds : External Female Exam: normal external appearance Speculum Exam - Vagina: normal appearance of the vagina Speculum Exam - Cervix: normal appearance of the cervix and Cervical os closed Bimanual exam- vagina & uterus: enlarged Bimanual Exam- Adnexa, other: normal adnexae Assessment and Plan Assessment and plan (1) Heavy menstrual bleeding: Code(s): N92.0 - Excessive and frequent menstruation with regular cycle Status: Acute (2) Sterilization: Code(s): Z30.2 - Encounter for sterilization Status: Acute Plan Laparoscopic bilateral tubal ligation with hysteroscopy/dilatation curettage/Lin ablation
--- NOTE | 2022-08-09 14:49 | P.PNAN_ITS ---
Anes - Initial Pre Proc Eval Procedure: Operation Date: 08/10/22 13:30 Proposed Procedures p Laparoscopic Bilateral Tubal Ligation with Fallopian Rings - Jackson Florez MD s Hysteroscopy Dilation and Curettage with Lin Endometrial Ablation - Jackson Florez MD Date/Time: 08/09/22 14:49 Surgeon: Jackson Florez MD Pre Op Diagnosis: desires sterilization, irregular bleeding Patient Data Age: 27 Gender: F Height: 1.68 m Weight: 94.09 kg Allergies Allergy/AdvReac Type Severity Reaction Status Date / Time No Known Allergies Allergy Unknown Verified 08/10/22 11:31 Home Medications Medication Instructions Recorded Confirmed Type sertraline 50 mg tablet 50 mg PO DAILY 04/26/22 08/10/22 History ferrous sulfate 325 mg (65 mg 325 mg PO DAILY #30 tabs 06/09/22 08/10/22 Rx iron) tablet ibuprofen 600 mg tablet 600 mg PO Q6H PRN cramps #30 tabs 06/09/22 08/10/22 Rx cyclobenzaprine 10 mg tablet 10 mg PO PRN 07/31/22 08/10/22 History gabapentin 300 mg capsule 300 mg PO PRN 07/31/22 08/10/22 History hydrocodone 5 mg-acetaminophen 325 1 tablet PO Q4H PRN pain #20 tabs 08/10/22 Rx mg tablet Patient hx anesthesia problems: none Family hx anesthesia problems: none Results Review: All pre-operative results and documents have been reviewed as part of the pre- operative evaluation. [facility], [facility] Past Medical History Medical History Anxiety Depression Headache, migraine Surgical History Surgical History H/O section Hx of laparoscopy removal of ovarian cyst, endometriosis Family History Family History Grandparent Diabetes mellitus Non-Hodgkin lymphoma Dementia Cerebrovascular accident Mother Breast cancer Depression Father Alcohol abuse Bipolar affective disorder Grandparent Breast cancer Brain cancer Carcinoma of colon Grandparent Carcinoma of colon Social History Social History Smoking status: Never smoker Alcohol intake: current Alcohol use details: twice a year Substance use: never Substance use type: does not use Living arrangements: with family Gender identity (if verbalized by the patient): Female Spiritual care concerns: No Anes - Eval Final PreProcedure Day of Procedure 08/09/22 14:49 Patient weight: obese Heart: regular rate and rhythm Lungs: clear to auscultation and normal air movement Airway: Mallampati scale class II Neurological: alert and oriented Last oral intake: >/= 8 hours ASA classification: II Emergent: no Anesthetic plan: proceed Anesthesia type and monitoring: general ETT Results Review: All pre-operative results and documents have been reviewed as part of the pre- operative evaluation. Informed Consent: The patient's anesthetic plan and its attendant risks and benefits were discussed with the patient/family/POA. Questions were solicited and answers provided to the satisfaction of the patient/family/POA.
[2022-08-10] VITALS (12 sets, daily range): BP systolic 111–146; BP diastolic 63–106; PULSE 68–86; RESP 12–20; TEMP 36–36.7; O2SAT 97–100
--- NOTE | 2022-08-10 06:17 | WPDHPUPDATE1 ---
History and Physical Update Update Date/Time: 08/10/22 06:17 History and Physical has been reviewed, including an updated exam of the patient. There are NO changes in the patient's condition. Risks, benefits, and alternatives have been discussed and questions answered. Patient agrees to proceed with procedure.
[2022-08-10] MEDS: ACETAMINOPHEN 500 MG TABLET 1000 MG PO (11:35)
[2022-08-10] MEDS: LACTATED RINGERS 1,000 ML 30 ML IV CONT ×3 (12:00→13:52)
[2022-08-10] MEDS: KETOROLAC 15 MG/ML VIAL (*BKC) IV PUSH (12:01)
[2022-08-10 12:07] LABS: Hematocrit 35.8 % (37.0-47.0); Hemoglobin 11.5 g/dL (12.0-15.0)
--- NOTE | 2022-08-10 13:01 | P.OP_ITS ---
Procedure Note - Detailed Date of Procedure 08/10/22 Pre-op Diagnosis desires sterilization, irregular bleeding Post-op Diagnosis Same Procedure Performed Laparoscopic bilateral tubal ligation via silastic rings/hysteroscopy / dilatation curettage/Lin ablation Surgeon Jackson Florez MD Anesthesia General Indications a 27-year-old female who desires permanent sterilization with excessive heavy bleeding Findings retroverted uterus. Normal-appearing ovaries and tubes. Description of Procedure The patient was prepped draped in the normal sterile fashion placed in the dorsal lithotomy position. Under excellent general trach anesthesia weighted speculum was placed in the posterior fornix of vagina. Anterior lip of the cervix grasped with a single-tooth tenaculum. The Gomes's cannula inserted and attached to be used later for uterine manipulation. The bladder was then emptied of clear urine. The weighted speculum was removed. The gloves were changed. An infraumbilical incision made Veress needle passed in the abdomen. Abdomen filled with CO2 gas [id number]. 5mm trocar advanced under direct visualization assuring no injury. The patient placed in Trendelenburg and a suprapubic inci rosario made. The 8mm trocar advanced under direct visualization assuring no injury. The left fallopian tube was grasped and a good knuckle of tube formed with excellent blanching. The right fallopian tube was grasped and a good knuckle of tube was made with a 2nd fallopian ring band. Photo documentation was undertaken. The appendix appeared within normal limits . The liver edge appeared normal the gas was removed from the abdomen and the ports removed. The incisions closed with 4 Monocryl and glue. Attention was then turned to the hysteroscopic portion of the procedure. Uterus sounded to9.5cm. Serial dilatation with fragmented dilators performed followed by passes the 5mm visualizing hysteroscope using normal saline as visualizing medium. Thick irregular endometrium was seen. The uterus was scraped over the entire 360? until a good grating sound was heard. The Lin instrument was then placed in the uterus and burned [id number]. The instruments were withdrawn and the patient was awakened. All sponge, needle, instrument counts were correct. There were no immediate complications noted Implants silastic bands Estimated Blood Loss 50 Drains No Packing No Pathology Yes Complications No immediate complications Condition Stable Disposition PACU
[2022-08-10] MEDS: fentaNYL CITRATE INJ (*CRX) 100 MCG/2 ML VIAL 25 MCG IV PUSH ×12 (13:21→14:05)
[2022-08-10] MEDS: ONDANSETRON INJ 4 MG/2 ML VIAL IV PUSH (13:25)
[2022-08-10] MEDS: HYDROmorphone HCL INJ (*CRX) 1 MG/ML SYR 0.5 MG IV PUSH ×4 (14:10→14:33)
[2022-08-10] MEDS: oxyCODONE HCL (*CRX) 5 MG TAB IR PO (15:01)
== END 2022-08-10 15:52 | disposition home or self-care (01) ==
PROVIDERS: PCP Nurse Practitioner Family; Visit Provider Obstetrics & Gynecology
PROC: (CPT 58671; principal; 2022-08-10 13:30)
PROC: 0U5B8ZZ Destruction of Endometrium, Via Natural or Artificial Opening Endoscopic (ICD-10-PCS; CPT 58563; 2022-08-10 13:30)
DX: N92.0 Excessive and frequent menstruation with regular cycle (principal); Z30.2 Encounter for sterilization; F41.9 Anxiety disorder, unspecified; F32.A Depression, unspecified; E66.9 Obesity, unspecified; Z68.35 Body mass index [BMI] 35.0-35.9, adult
CPT/HCPCS: 58563; 58671; 36415; 85014; 85018; 88305; A4264; A9270; J1100; J1170; J1200; J1885; J2250; J2405; J2704; J2710; J3010; J7030; J7120

== ENCOUNTER 2022-08-10 22:20 | Emergency (ER) | payer BC, OTHER, SELFPAY ==
[2022-08-10 22:21] VITALS: BP 146/98; PULSE 86; RESP 20; TEMP 36.7; O2SAT 100
[2022-08-10 22:44] LABS: Basophils Percent Auto 0.1 % (0.2-1.2); Hematocrit 36.7 % (37.0-47.0); Hemoglobin 12.3 g/dL (12.0-15.0); Immature Granulocyte Absolute 0.03 K/mm3 (0.00-0.031); Immature Granulocyte Percent A 0.4 % (0-0.5); Lymphocytes Absolute Auto 0.96 K/mm3 (0.9-3.2); Lymphocytes Percent Auto 11.3 % (18.3-44.2); Mean Corpuscular HGB Conc 33.5 g/dl (32-36); Mean Corpuscular Hemoglobin 27.3 pg (26-34); Mean Corpuscular Volume 81.6 fl (80-100); Mean Platelet Volume 8.5 fl (7.4-10.4); Monocytes Absolute Auto 0.2 K/mm3 (0.1-0.6); Monocytes Percent Auto 2.7 % (2.6-8.5); Neutrophils Absolute Auto 7.3 K/mm3 (1.3-6.7); Neutrophils Percent Auto 85.5 % (45.5-73.1); Platelet Count Result 351 k/mm3 (150-375); Red Cell Distribution Width 14.2 % (11.5-14.5); White Blood Count 8.5 K/mm3 (4.5-10.0)
[2022-08-10 22:57] LABS: Alanine Aminotransferase 58 U/L (6-35); Albumin Level 4.9 g/dL (3.5-5.1); Alkaline Phosphatase 93 U/L (38-126); Anion Gap 14 mmol/L (8-16); Aspartate Amino Transferase 82 U/L (14-36); Bilirubin,Total 0.8 mg/dL (0.2-1.3); Blood Urea Nitrogen 8 mg/dL (7-17); Calcium 9.2 mg/dL (8.4-10.2); Carbon Dioxide 22 mmol/L (22-30); Chloride 105 mmol/L (98-107); Estimated CRCL calculation 126 ml/min; Estimated Glomerular Filt Rate > 60; Glucose 176 mg/dL (65-110); Lipase 50 U/L (23-300); Potassium 3.7 mmol/L (3.4-5.0); Sodium 141 mmol/L (137-145)
[2022-08-10 22:58] LABS: Add Urine Microscopic? YES; Appearance Urine Clear (Clear); Bilirubin Urine Negative (Negative); Blood Urine 3+ (Negative); Glucose Urine UA Negative (Negative); Ketones Urine Negative (Negative); Leukocyte Esterase Ur Trace LEU/UL (Negative); Nitrate Urine Negative (Negative); Protein Urine 1+ mg/dL (Negative); Specific Grav Ur 1.015 (1.001-1.035); Urobilinogen Urine 0.2 mg/dL (<2.0); pH Urine >=9.0 (5.0-9.0)
[2022-08-10 22:59] LABS: Color Urine Light Red (Yellow)
[2022-08-10 23:07] LABS: RBC Urine >75 /hpf (0-2); Squamous Epithelial Cell Urine Rare /hpf (Few); WBC Urine 16-20 /hpf
--- NOTE | 2022-08-10 23:31 | ED.GENADULT ---
HPI - General Adult General Chief complaint: Unspecified Stated complaint: ABDOMINAL PAIN Time Seen by Provider: 08/10/22 23:26 History of Present Illness HPI narrative: Patient is a 27-year-old female who presents to the emergency department with chief complaint of abdominal pain. The patient underwent a tubal ligation and endometrial ablation today by Dr. Seymour Florez the patient went home and had worsening pain and has had 1 episode of vomiting. Patient denies fever denies syncope. Related Data Home Medications Medication Instructions Recorded Confirmed sertraline 50 mg tablet 50 mg PO DAILY 04/26/22 08/10/22 cyclobenzaprine 10 mg tablet 10 mg PO PRN 07/31/22 08/10/22 gabapentin 300 mg capsule 300 mg PO PRN 07/31/22 08/10/22 Allergies Allergy/AdvReac Type Severity Reaction Status Date / Time No Known Allergies Allergy Unknown Verified 08/10/22 11:31 Review of Systems Review of Systems: A 10 system review of systems was completed on the patient and is negative except for what is stated in the HPI. Nursing and ancillary documentation was reviewed. PMFSH Past Medical History Medical History Anxiety Depression Headache, migraine Surgical History Surgical History H/O section Hx of laparoscopy removal of ovarian cyst, endometriosis Family History Family History Grandparent Diabetes mellitus Non-Hodgkin lymphoma Dementia Cerebrovascular accident Mother Breast cancer Depression Father Alcohol abuse Bipolar affective disorder Grandparent Breast cancer Brain cancer Carcinoma of colon Grandparent Carcinoma of colon Social History Social History Smoking status: Never smoker Alcohol intake: current Alcohol use details: twice a year Substance use: never Substance use type: does not use Gender identity (if verbalized by the patient): Female Spiritual care concerns: No Exam Narrative: GENERAL: Well-appearing, well-nourished, and in no acute distress. HEAD: Normocephalic, atraumatic. EYES: PERRLA and EOMI. ENT: Nares clear, no rhinorrhea or epistaxis. Mucous membranes moist. NECK: Supple. CHEST: Clear to auscultation. No respiratory distress. HEART: Regular rate and rhythm. No murmur heard. Normal peripheral pulses. ABDOMEN: Soft, mild tenderness in the left lower quadrant, incisions appear intact no bleeding no erythema, nondistended, normal active bowel sounds. EXTREMITIES: Normal range of motion. No edema. SKIN: Warm, dry, no rash. NEURO: No focal deficits. Alert and oriented x3. PSYCH: Normal mood and affect. Course Course Emergency Course: Patient's hemoglobin is essentially unchanged from when she was in the hospital. The case was discussed with Dr. Seymour Florez the patient's primary surgeon who will with the patient for pain control and observation overnight. After discussing with Dr. Seymour Florez admission and the patient originally being okay with staying she decided that she would prefer to go home as she has an infant at home that she is caring for. The patient was offered pain control in the emergency department and the patient has declined and chose to go home. Vital Signs Vital signs: Vital Signs Temperature 36.7 C 08/10/22 22:21 Pulse Rate 86 08/10/22 22:21 Respiratory Rate 20 08/10/22 22:21 Blood Pressure 146/98 H 08/10/22 22:21 Pulse Oximetry 100 08/10/22 22:21 Oxygen Delivery Room Air 08/10/22 22:21 Temperature 36.7 C 08/10/22 22:21 Pulse Rate 86 08/10/22 22:21 Respiratory Rate 20 08/10/22 22:21 Blood Pressure 146/98 H 08/10/22 22:21 Pulse Oximetry 100 08/10/22 22:21 Oxygen Delivery Room Air 08/10/22 22:21 Medical
--- NOTE | 2022-08-11 | PC.NURSE ---
appeals writer went to room to give patient pain medication and zofran. updated that unfortunaltely her will not be allowed to stay with her on the medical floor for the baby safety patient decided she did not want medication and wants to be discharged home. de notified and speaking with patient
[2022-08-11 00:32] LABS: SARS-CoV-2 RNA PCR Negative
== END 2022-08-11 00:26 | disposition home or self-care (01) ==
PROVIDERS: Emergency Provider Emergency Medicine; PCP Nurse Practitioner Family
DX: G89.18 Other acute postprocedural pain (principal); Z20.822 Contact with and (suspected) exposure to COVID-19
CPT/HCPCS: 36415; 80053; 81001; 81025; 83690; 85025; 87086; 87088; 99283; U0003; U0005

== ENCOUNTER 2022-09-21 18:50 | Emergency (ER) | payer BC, OTHER, SELFPAY ==
[2022-09-21 18:58] VITALS: BP 125/76; PULSE 94; RESP 14; TEMP 36.9; O2SAT 99
--- NOTE | 2022-09-21 19:03 | ED.SKABFB ---
HPI - Skin/Abscess/Foreign Bdy General Chief complaint: Skin/Abscess/Foreign Body Stated complaint: top of head infection Time Seen by Provider: 09/21/22 19:03 Source: patient and RN notes reviewed Mode of arrival: ambulatory Limitations: no limitations History of Present Illness HPI narrative: 27-year-old female presents with concern for a painful area on her scalp. 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 Reports he swollen, tender with her drainage. She reports the pain radiates to her forehead her ear. complaint: lesion Related Data Home Medications Medication Instructions Recorded Confirmed sertraline 50 mg tablet 50 mg PO DAILY 04/26/22 09/21/22 cyclobenzaprine 10 mg tablet 10 mg PO PRN 07/31/22 09/21/22 gabapentin 300 mg capsule 300 mg PO DAILY 07/31/22 09/21/22 Allergies Allergy/AdvReac Type Severity Reaction Status Date / Time No Known Allergies Allergy Unknown Verified 09/21/22 19:03 Review of Systems Review of Systems: CONSTITUTIONAL: Denies malaise, chills, sweats, or fever. EYES: Denies redness, or discharge. ENT: Denies rhinorrhea, congestion, swollen lips, swollen tongue CARDIOVASCULAR: Denies chest pain, palpitations, or edema. RESPIRATORY: Denies cough or dyspnea. GASTROINTESTINAL: Denies abdominal pain, nausea, vomiting SKIN: Reports scab on her scalp with purulence drainage and surrounding pain MUSCULOSKELETAL: Denies joint pain or myalgia. NEUROLOGIC: Denies headache. All systems reviewed & are unremarkable except as noted in HPI and below PMFSH Past Medical History Medical History Anxiety Depression Headache, migraine Surgical History Surgical History H/O section Hx of laparoscopy removal of ovarian cyst, endometriosis Family History Family History Grandparent Diabetes mellitus Non-Hodgkin lymphoma Dementia Cerebrovascular accident Mother Breast cancer Depression Father Alcohol abuse Bipolar affective disorder Grandparent Breast cancer Brain cancer Carcinoma of colon Grandparent Carcinoma of colon Social History Social History Smoking status: Never smoker Alcohol intake: current Alcohol use details: twice a year Substance use: never Substance use type: does not use Gender identity (if verbalized by the patient): Female Spiritual care concerns: No Comments At time of signature, agree with nursing past medical, surgical, social and family history. There is no relevant family history pertinent to the presenting complaint Exam Narrative: GENERAL: Well-appearing, well-nourished, and in no acute distress. HEAD: Normocephalic, atraumatic. EYES: PERRLA, conjunctivae clear, and EOMI. ENT: Mucous membranes moist. Oropharynx without edema, erythema or lesions. NECK: Supple. No lymphadenopathy CHEST: Clear to auscultation. No respiratory distress. HEART: Regular rate and rhythm. SKIN: Warm, dry. 0.5 cm open lesion with purulent drainage noted to the scalp with approximately 2 cm with surrounding erythema, induration without fluctuation NEURO: Alert and oriented x3. PSYCH: Normal mood and affect Course Course Emergency Course: Patient is aware of diagnosis, understands and agrees to treatment plan. Anticipatory guidance given. Patient agrees to follow-up as directed and is aware of reasons to seek care at the emergency department. Portions of this record may have been created with voice recognition software Level of Care: Express Care Visit Vital Signs Vital signs: Vital Signs Temperature 98.5 F 09/21/22 18:58 Pulse Rate 94 09/21/22 18:58 Respiratory Rate 14 09/21/22 18:58 Blood Pressure 125/76 09/21/22 18:58 P
== END 2022-09-21 19:19 | disposition home or self-care (01) ==
PROVIDERS: Emergency Provider Nurse Practitioner; PCP Nurse Practitioner Family
DX: L08.9 Local infection of the skin and subcutaneous tissue, unspecified (principal)
CPT/HCPCS: 99213; G0463

== ENCOUNTER 2023-02-27 14:17 | Outpatient (CLI) | payer BC, OTHER, SELFPAY | END 2023-02-27 14:18 | disposition home or self-care (01) | LOC: ANHSURGERY 14:21 | PROVIDERS: PCP Nurse Practitioner Family; Visit Provider Obstetrics & Gynecology | DX: Z01.812 Encounter for preprocedural laboratory examination (principal); N80.9 Endometriosis, unspecified | CPT/HCPCS: 36415; 86850; 86900; 86901 ==

== ENCOUNTER 2023-03-06 00:26 | Day surgery (SDC) | payer BC, OTHER, SELFPAY ==
[2023-02-25 16:15] VITALS: BMI 29.0
--- NOTE | 2023-02-25 16:24 | SUR.PREOP ---
Report to the Outpatient Waiting Room, entrance under the green pavilion located off [facility], at time 0600 on date 03/06/23. Planned Procedure Time: 0730. Time changes happen often and if your time is changed the preop area will call you the afternoon before. - You and your visitor will be asked to self-screen and do not enter if you have any COVID symptoms. - A mask is optional within the hospital at this time. Patients may have clear liquids (water, carbonated beverages, clear teas, apple juice) until 3 hours prior to surgery with a maximum of 20 ounces. - No food from midnight until time of surgery 20 ounces before 0430 am - Infants may have breast milk until 4 hours before surgery, formula 6 hours prior to surgery. - Children will be allowed to drink immediately following surgery. If applicable, please bring a bottle or sippy cup to assist with drinking. Juice, water, soda, and popsicles are readily available. For infants on formula, please bring formula the day of surgery. Pacifiers are allowed. Take the following medications with a SIP of water the morning of surgery: __sertraline DO NOT STOP ANY OF YOUR OTHER PRESCRIPTION MEDICATIONS PRIOR TO SURGERY ?EXCEPT THE FOLLOWING Medications to discontinue per physician Date to take last dose Please no make-up, nail persian, hairspray, perfume, deodorant, or body powder the day of surgery. No jewelry (including any body piercings) or valuables the day of surgery, leave them at home. Please take a shower or bath the night before, or the morning of, surgery with an antibacterial soap. Wear comfortable, loose fitting clothing. Children are encouraged to wear pajamas. - Jewelry must be removed prior to entering the operating room. Rings and piercings that are not removed may be cut off. - The hospital will not accept responsibility for valuables. - Please leave all valuables, including medications, at home the day of surgery. If you are going home after surgery, a licensed route driver coin machines must drive you home. - NO public transportation without another adult if you receive anesthesia. - We recommend that an adult stay with you for 24 hours following discharge. - We also recommend that you do not drive, make important decision, drink alcoholic beverages, or take any drugs that were not prescribed by your health care provider for at least 24 hours after your discharge time. For Pediatric surgeries, we recommend two adults accompany the child home. Follow any additional instructions given to you from your surgeon. If you or anyone in your household have experienced Covid symptoms in the past week, please notify your surgeon or the nurse liaison at the phone number below for possible testing. Telephone instructions given to _patient_and asked if any additional questions and then verbalized understanding. Patient advised to call surgeon office or pre surgery nurse liaison [phone] if any additional questions.
--- NOTE | 2023-03-05 14:53 | P.PNAN_ITS ---
Anes - Initial Pre Proc Eval Procedure: Operation Date: 03/06/23 07:30 Proposed Procedures p Robotic Assisted Hysterectomy with Bilateral Salpingectomy - Mercedes Candelario MD Date/Time: 03/05/23 14:53 Surgeon: Mercedes Candelario MD Pre Op Diagnosis: endometriosis of pelvis Patient Data Age: 27 Gender: F Height: 1.68 m Weight: 81.65 kg Allergies Allergy/AdvReac Type Severity Reaction Status Date / Time No Known Allergies Allergy Unknown Verified 09/21/22 19:03 Home Medications Medication Instructions Recorded Confirmed Type sertraline 50 mg tablet 50 mg PO DAILY 04/26/22 02/25/23 History cyclobenzaprine 10 mg tablet 10 mg PO PRN 07/31/22 02/25/23 History gabapentin 300 mg capsule 300 mg PO DAILY 07/31/22 02/25/23 History Patient hx anesthesia problems: none Family hx anesthesia problems: none Results Review: All pre-operative results and documents have been reviewed as part of the pre- operative evaluation. PMF Past Medical History Medical History Anxiety Depression Headache, migraine Surgical History Surgical History H/O section Hx of laparoscopy removal of ovarian cyst, endometriosis Family History Family History Grandparent Diabetes mellitus Non-Hodgkin lymphoma Dementia Cerebrovascular accident Mother Breast cancer Depression Father Alcohol abuse Bipolar affective disorder Grandparent Breast cancer Brain cancer Carcinoma of colon Grandparent Carcinoma of colon Social History Social History Smoking status: Never smoker Tobacco type: e-cigarettes/vaping Alcohol intake: never Alcohol use details: twice a year Substance use: never Substance use type: does not use Living arrangements: with family Gender identity (if verbalized by the patient): Female Spiritual care concerns: No Anes - Eval Final PreProcedure Day of Procedure 03/05/23 14:53 Patient weight: normal Heart: regular rate and rhythm Lungs: clear to auscultation Airway: Mallampati scale class II Neurological: alert and oriented Last oral intake: >/= 8 hours ASA classification: II Emergent: no Anesthetic plan: proceed Anesthesia type and monitoring: general ETT and standard monitoring Results Review: All pre-operative results and documents have been reviewed as part of the pre- operative evaluation. Informed Consent: The patient's anesthetic plan and its attendant risks and benefits were discussed with the patient/family/POA. Questions were solicited and answers provided to the satisfaction of the patient/family/POA.
[2023-03-06] VITALS (18 sets, daily range): BP systolic 100–118; BP diastolic 63–86; PULSE 63–102; RESP 12–18; TEMP 36.3–37.2; O2SAT 96–100; BMI 28.5
[2023-03-06] MEDS: LACTATED RINGERS 1,000 ML 30 ML IV CONT ×2 (06:52→11:29)
[2023-03-06] MEDS: ACETAMINOPHEN 500 MG TABLET 1000 MG PO (06:59)
[2023-03-06] MEDS: KETOROLAC 15 MG/ML VIAL (*BKC) IV PUSH (07:00)
--- NOTE | 2023-03-06 07:17 | WPDHPUPDATE1 ---
History and Physical Update Update Date/Time: 03/06/23 07:17 History and Physical has been reviewed, including an updated exam of the patient. There are NO changes in the patient's condition. Risks, benefits, and alternatives have been discussed and questions answered. Patient agrees to proceed with procedure.
[2023-03-06] MEDS: ceFAZolin 2 GM/D5W 50 ML 2 GM/50 ML BAG IVPB (07:29)
[2023-03-06] MEDS: fentaNYL CITRATE INJ (*CRX) 100 MCG/2 ML VIAL 25 MCG IV PUSH ×8 (10:47→11:28)
[2023-03-06] MEDS: HYDROmorphone HCL INJ (*CRX) 1 MG/ML SYR 0.25 MG IV PUSH ×8 (11:38→13:03)
--- NOTE | 2023-03-06 13:08 | W.PM.PROC2 ---
Procedure Note - Detailed Date of Procedure 03/06/23 Pre-op Diagnosis endometriosis of pelvis, pelvic pain Post-op Diagnosis Same Procedure Performed Robot assisted Total hysterectomy with bilateral salpingectomy. Surgeon Mercedes Candelario MD Anesthesia General Indications pelvic pain Findings Endometriosis throughout the pelvis, endometriosis on the anterior uterus and bladder flap. Normal-appearing ovaries, normal-appearing tubes. Uterus had endometriosis on the fundal area as well as the anterior uterus. Description of Procedure This patient was taken to the operating room. She was prepped and draped in the dorsal lithotomy position after induction of general anesthesia. The uterine manipulator and Abelardo cup were placed. This was done with a speculum and tenaculum. The speculum was placed. The cervix was grasped with a tenaculum. The stay sutures were placed at 3 and 9:00 a.m.. The stay sutures of 0 Vicryl were tied to the appropriately Size scope after it was slipped around the cervix.. The tip of the CECI manipulator was placed in the intrauterine cavity. The cup was slid into place around the cervix and into the fornices. It was locked into place. The sutures were then wrapped around the handle and tied under tension. A 8 mm skin incision was made in the left upper quadrant the abdomen. a 5 mm Visiport trocar was inserted into abdominal cavity and pneumoperitoneum was achieved. A 8 mm supraumbilical incision was made and a 8 mm trocar was inserted into the intrauterine cavity under direct visualization of the scope. an 8 mm incision was made in the right upper quadrant of the abdomen and an 8 mm robotic trocar was placed the inter uterine cavity under direct visualization the scope. An 11 mm trocar was inserted in the right upper quadrant of the abdomen rectal is a cystoscope after an incision was made there as well. The robot was docked. Electronic Orientation of the robot was performed. Bilateral ureteral lysis was performed. This was done from the pelvic brim down to the uterine artery. This was done with careful dissection using sharp and blunt dissection. The fallopian tubes were removed bilaterally. The mesosalpinx around the fallopian tubes were cauterized transected with LigaSure cautery. This was done in a bilateral fashion from the ovary to the uterine cornua. The fallopian tube was transected at the uterine cornu and amputated. The tube was taken out the left lower quadrant trocar site. In a stepwise fashion along the lateral aspects of the uterus the round ligament and broad ligaments were cauterized transected down to the level of the uterine arteries. A bladder flap was created in the bladder was moved distally to the end of the cervix and over the Abelardo cup. as this occurred the bladder was entered. About a 1 cm defect was created the bladder. It was repaired with imbricating layers of V lock suture, 2-0 and 3-0. The bilateral uterine arteries were cauterized and transected. Colpotomy was then performed. In a circumferential fashion the vagina was transected using unipolar cautery. The incision was made down on the Abelardo cup. The uterus and cervix were taken out through the vagina. A pneumo occluder was placed in the vagina. The vaginal cuff was closed with a 0 V lock suture in a running fashion. The pelvis was irrigated with copious amounts antibiotic irrigation. The ureters were again examined and found to be intact and flowing freely under the uterine arteries into the bladder. The bladder was intact. It was examined directly. The vagina was irrigated with Betadine solution after removal of the Pneumo occluder. the trocars were removed after the robot was undocked. The skin was closed with subacute or Dermabond. The patient was taken to recovery room. She was stable condition. Sponge lap and needle counts were correct x2. Estimated Blood Loss -100.0 Urine Output -50.0 Drains Yes Packing No Pathology
[2023-03-06] MEDS: KETOROLAC 30 MG/ML VIAL (*BKC) IV PUSH (14:09)
[2023-03-06] MEDS: DEXTROSE 5%/0.45% SOD CHL 1,000 ML 125 ML IV CONT (14:10)
--- NOTE | 2023-03-06 14:25 | ADMGEN ---
1326-This patient, Ankita De La Cruz, was admitted to OB 2nd Floor Room 289-00. Patient/family oriented to hospital policies and general routines including ID bracelet, bed and alarms, visiting hours, pain management, procedures, bathroom and other care routines, personal items, smoking policy, room service/diet, and visiting hours. Information on how to activate the Rapid Response Team has been discussed. Patient/Family are encouraged to report perceived risks to care and to ask questions if they do not understand what they are told or what they should do.
[2023-03-06] MEDS: HYDROcodone/acetaminophen (*CRX) 10-325 MG TABLET 1 TAB PO ×3 (15:51→22:01)
[2023-03-06] MEDS: IBUPROFEN 600 MG TABLET PO (18:54)
[2023-03-07] MEDS: IBUPROFEN 600 MG TABLET PO ×2 (03:19→10:42)
[2023-03-07] MEDS: HYDROcodone/acetaminophen (*CRX) 10-325 MG TABLET 1 TAB PO ×2 (03:21→08:17)
[2023-03-07 04:28] VITALS: BP 97/60; PULSE 81; RESP 14; TEMP 36.7; O2SAT 98
[2023-03-07] MEDS: SERTRALINE HCL 50 MG TABLET PO (08:17)
[2023-03-07] MEDS: GABAPENTIN 300 MG CAPSULE PO (08:17)
--- NOTE | 2023-03-07 08:29 | PM.GYNPNOP ---
INFORMATION TECHNOLOGY SPECIALIST - A/P Assessment and plan (1) Pelvic pain: Code(s): R10.2 - Pelvic and perineal pain Status: Acute Plan 27-year-old female who is postop day 1 from a robotic assisted hysterectomy with bilateral salpingectomy. She had a bladder injury during the procedure. She will go home with a indwelling Ron catheter leg bag. She is going to have x-ray cystogram in 1 week. Postoperative Procedures: Procedures Operation Date: 03/06/23 07:30 Actual Procedure Side Surgeon p Robotic Assisted Hysterectomy with Bilateral Salpingectomy, Repair of Bladder Injury Bilateral Mercedes Candelario MD Postoperative day: 1 Postoperative status: doing well Postoperative plan: see orders Time Spent With Patient Time: Total time spent is greater than 50% in coordination of care (as documented) at patient's floor/unit and/or counseling patient: Time with patient: less than 15 minutes INFORMATION TECHNOLOGY SPECIALIST- PN:Subj Post-Op Subjective Date/time seen: 03/07/23 08:29 Subjective: patient reports feeling better, patient has no complaints and pain is well controlled Exam Const: General: healthy appearing, comfortable and no acute distress Resp: Auscultation: clear to auscultation bilaterally, no rales, no rhonchi and no wheezes Cardio: Rate: regular rate Heart sounds: no click, no murmurs and no rubs GI: Inspection: non-distended Auscultation: normal bowel sounds Extrem: General: normal to inspection, no pedal edema and no calf tenderness INFORMATION TECHNOLOGY SPECIALIST - PN: Obj Data Vital Signs Vital Signs: Vital Signs - 24 hr 03/06/23 10:14 03/06/23 10:20 03/06/23 10:30 Temperature 97.4 F L Pulse Rate 64 63 84 Respiratory Rate 17 12 14 Blood Pressure 115/82 118/73 115/70 Pulse Oximetry 100 100 100 Oxygen Delivery Simple Face Mask Simple Face Mask Simple Face Mask Oxygen Flow Rate 8 8 8 03/06/23 10:45 03/06/23 11:00 03/06/23 11:15 Temperature Pulse Rate 74 88 90 Respiratory Rate 14 18 18 Blood Pressure 116/81 118/77 118/78 Pulse Oximetry 99 97 99 Oxygen Delivery Room Air Room Air Room Air Oxygen Flow Rate 03/06/23 11:30 03/06/23 11:45 03/06/23 12:00 Temperature Pulse Rate 76 74 74 Respiratory Rate 13 12 14 Blood Pressure 118/76 115/65 113/74 Pulse Oximetry 98 99 100 Oxygen Delivery Room Air Room Air Room Air Oxygen Flow Rate 03/06/23 12:15 03/06/23 12:30 03/06/23 12:45 Temperature Pulse Rate 92 97 98 Respiratory Rate 14 12 14 Blood Pressure 114/65 116/81 115/67 Pulse Oximetry 97 100 98 Oxygen Delivery Room Air Room Air Room Air Oxygen Flow Rate 03/06/23 13:00 03/06/23 13:15 03/06/23 14:00 Temperature 98.3 F Pulse Rate 89 85 93 Respiratory Rate 12 14 16 Blood Pressure 115/75 111/86 112/69 Pulse Oximetry 96 96 99 Oxygen Delivery Room Air Room Air Oxygen Flow Rate 03/06/23 20:06 03/06/23 22:12 03/07/23 04:28 Temperature 98.9 F 98.7 F 98.1 F Pulse Rate 96 102 H 81 Respiratory Rate 16 14 14 Blood Pressure 100/63 103/66 97/60 L Pulse Oximetry 98 98 98 Oxygen Delivery Oxygen Flow Rate Intake/Output Intake/Output: Intake & Output 03/04/23 03/05/23 03/06/23 03/07/23 23:59 23:59 23:59 23:59 Intake Total 1790 1200 Output Total 310 700 Balance 1480 500 Meds/Results Medications: Active Medications Generic Name Dose Route Start Last Admin Trade Name Freq PRN Reason Stop Dose Admin Hydrocodone Bitart/Acetaminophen 1 tab 03/06/23 13:23 03/07/23 08:17 Hydrocodone/Acetaminophen (*Crx) 10-325 Mg Tablet PO 1 tab Q3H PRN Administration Pain Rated 6 or Greater Hydrocodone Bitart/Acetaminophen 1 tab 03/06/23 13:23 Hydrocodone/Acetaminophen (*Crx) 5-325 Mg Tablet PO Q3H PRN Pain Rated 5 or Less Cyclobenzaprine HCl 10 mg 03/06/23 13:23 Cyclobenzaprine Hcl 10 Mg Tablet PO PRN NILTON Gabapentin 300 mg 03/07/23 09:00 03/07/23 08:17 Gabapentin 300 Mg Capsule PO 300 mg DAILY NILTON Administration Dextrose/Sodium Chloride 1,000 mls @
[2023-03-07 09:05] VITALS: BP 111/70; PULSE 83; RESP 18; TEMP 36.7; O2SAT 100
--- NOTE | 2023-03-07 11:10 | WPDANESPN ---
Anes - Prog Note Post-Op Date/Time: 03/07/23 11:10 Vital Signs: Last Vital Signs Temp 36.7 C 03/07/23 09:05 Pulse 83 03/07/23 09:05 Resp 18 03/07/23 09:05 BP 111/70 03/07/23 09:05 Pulse Ox 100 03/07/23 09:05 O2 Del Method Room Air 03/07/23 08:15 O2 Flow Rate 8 03/06/23 10:30 Pain Score (VAS): 0 I/O: Intake & Output 03/06/23 03/07/23 03/07/23 23:59 07:59 15:59 Intake Total 1390 1200 Output Total 250 700 125 Balance 1140 500 -125 Patient Feedback: Patient satisfied with anesthetic care.
== END 2023-03-07 10:53 | disposition home or self-care (01) ==
LOC: ANHSURGERY 06:05 → ANHOB2 13:24
PROVIDERS: PCP Nurse Practitioner Family; Visit Provider Obstetrics & Gynecology
PROC: (CPT 58571; principal; 2023-03-06 07:30)
DX: N80.30 Endometriosis of pelvic peritoneum, unspecified (principal); N80.00 Endometriosis of the uterus, unspecified; N80.A0 Endometriosis of bladder, unspecified depth; R10.2 Pelvic and perineal pain; N73.6 Female pelvic peritoneal adhesions (postinfective); N99.71 Accidental puncture and laceration of a genitourinary system organ or structure during a genitourinary system procedure; F41.9 Anxiety disorder, unspecified; F32.A Depression, unspecified
CPT/HCPCS: 58571; 51999; S2900; 88305; 88307; 99199; A9270; J0690; J1100; J1170; J1885; J2250; J2405; J2704; J2710; J3010; J7030; J7120

== ENCOUNTER 2023-03-13 14:26 | Outpatient (CLI) | payer BC, OTHER, SELFPAY ==
--- NOTE | ~2023-03-13 | XR_ITS ---
EXAMINATION: XR cystogram DATE: 03/13/2023 14:53 INDICATION: Bladder perforation. TECHNIQUE: Water-soluble contrast was gravity-infused through the patient's Ron catheter. Multiple fluoroscopic images were obtained. Fluoroscopy exposure time was 0.2 minutes. The total number of marie ges was 8. COMPARISON: None. FINDINGS: The bladder is normal. There is no extraluminal leakage of contrast. No ureteral reflux. IMPRESSION: 1. Normal cystogram. Reviewed, dictated and finalized at location A. IMPRESSION: 1. Normal cystogram.
== END 2023-03-13 14:27 | disposition home or self-care (01) ==
PROVIDERS: PCP Nurse Practitioner Family; Visit Provider Obstetrics & Gynecology
DX: N99.81 Other intraoperative complications of genitourinary system (principal)
CPT/HCPCS: 51600; 74430; Q9967

== ENCOUNTER 2023-04-16 13:36 | Emergency (ER) | payer BC, OTHER, SELFPAY ==
[2023-04-16 13:42] VITALS: BP 111/71; PULSE 109; RESP 20; TEMP 37.4; O2SAT 99
--- NOTE | 2023-04-16 14:11 | ED.NAVMDI ---
HPI - Nausea/Vomiting/Diarrhea General Chief complaint: Upper Respiratory Infection Stated complaint: flu symptoms Time Seen by Provider: 04/16/23 14:05 Source: patient, RN notes reviewed and old records reviewed Mode of arrival: ambulatory Limitations: no limitations History of Present Illness HPI Narrative: 27 year old female who presents to [facility] care with complaints of nausea vomiting X3 diarrhea X1, which started this morning with body aches and chills. Patient has not taking any OTC medications for her symptoms except for some TUMS. Patient reports that she did eat taco schmitz at 2300 last night. Patient reports some upper epigastric burning and states some headache discomfort, she denies any sore throat or any cough or nasal drainage. No recent antibiotic use or known ill contacts. MD elicited complaint: nausea, vomiting and diarrhea Onset (ago): hour(s) (this morning) Associated abdominal pain: Yes Location of pain: epigastric (upper described as burning) Treatment prior to arrival: other (TUMS) Related Data Home Medications Medication Instructions Recorded Confirmed gabapentin 300 mg capsule 300 mg PO TID 07/31/22 04/16/23 sertraline 100 mg tablet 100 mg PO DAILY 04/16/23 04/16/23 Allergies Allergy/AdvReac Type Severity Reaction Status Date / Time No Known Allergies Allergy Unknown Verified 04/16/23 14:04 Review of Systems Review of Systems: CONSTITUTIONAL: Denies known fever, positive for chills, or sweats. ENT: Denies rhinorrhea, congestion, sore throat, or otalgia. CARDIOVASCULAR: Denies chest pain, palpitations, or edema. RESPIRATORY: Denies cough or dyspnea. GASTROINTESTINAL: Reports upper epigastric burning, positive for nausea, vomiting, diarrhea this morning GENITOURINARY: Denies dysuria or hematuria. SKIN: Denies rash or itching. MUSCULOSKELETAL: Denies back pain, joint pain, or myalgia. NEUROLOGIC: Reports mild headache,no numbness, or weakness. All systems reviewed & are unremarkable except as noted in HPI and below PMFSH Past Medical History Medical History Anxiety Depression Headache, migraine Surgical History Surgical History H/O section Hx of laparoscopy removal of ovarian cyst, endometriosis Family History Family History Grandparent Diabetes mellitus Non-Hodgkin lymphoma Dementia Cerebrovascular accident Mother Breast cancer Depression Father Alcohol abuse Bipolar affective disorder Grandparent Breast cancer Brain cancer Carcinoma of colon Grandparent Carcinoma of colon Social History Social History Smoking status: Never smoker Tobacco type: e-cigarettes/vaping Alcohol intake: never Alcohol use details: twice a year Substance use: never Substance use type: does not use Living arrangements: with family Gender identity (if verbalized by the patient): Female Spiritual care concerns: No Comments At time of signature, agree with nursing past medical, surgical, social and family history. There is no relevant family history pertinent to the presenting complaint Exam Narrative: GENERAL: Well-appearing, well-nourished, and in no acute distress. HEAD: Normocephalic, atraumatic. EYES: PERRLA, conjunctivae clear, and EOMI. ENT: Nares clear. Mucous membranes moist. Oropharynx without edema, erythema, or lesions. Tonsils not enlarged and without exudate. NECK: Supple. No lymphadenopathy CHEST: Speaks in full sentences. No respiratory distress.SAO2 99% on room air HEART: Regular rate and rhythm. ABDOMEN: Soft, flat, nondistended. No guarding, rebound tenderness, or rigid. No pulsatilla masses. Bowel sounds present in all four quadrants. No organomegaly
[2023-04-16] MEDS: ONDANSETRON HCL ODT 4 MG TABLET SUBLINGUAL (14:28)
== END 2023-04-16 14:40 | disposition home or self-care (01) ==
PROVIDERS: Emergency Provider Registered Nurse; PCP Nurse Practitioner Family
DX: R11.2 Nausea with vomiting, unspecified (principal); R19.7 Diarrhea, unspecified; F41.9 Anxiety disorder, unspecified; F32.A Depression, unspecified
CPT/HCPCS: 87804; 99213; A9270; G0463

== ENCOUNTER 2023-08-31 15:42 | Emergency (ER) | payer BC, OTHER, SELFPAY ==
[2023-08-31 15:46] VITALS: BP 116/72; PULSE 95; RESP 20; TEMP 37.1; O2SAT 98
--- NOTE | 2023-08-31 15:49 | ED.URI ---
HPI - URI/Sore Throat General Chief Complaint: Upper Respiratory Infection Stated Complaint: Rash/throat/cough Time Seen by Provider: 08/31/23 16:10 Source: patient and RN notes reviewed Mode of arrival: ambulatory Limitations: no limitations History of Present Illness HPI Narrative: 28-year-old female presents with concern for sore throat, cough. She reports tingling on her feet her hands. She reports she is taking Mucinex. She reports her cough is keeping her awake at night. MD elicited complaint: cough and sore throat Related Data Home Medications Medication Instructions Recorded Confirmed sertraline 100 mg tablet 100 mg PO DAILY 04/16/23 04/16/23 Allergies Allergy/AdvReac Type Severity Reaction Status Date / Time No Known Allergies Allergy Unknown Verified 04/16/23 14:04 Review of Systems Review of Systems: CONSTITUTIONAL: Denies malaise, chills, sweats, or fever. EYES: Denies visual changes, redness, or discharge. ENT: Reports rhinorrhea, congestion, and sore throat. CARDIOVASCULAR: Denies chest pain, palpitations, or edema. RESPIRATORY: Reports cough. Denies dyspnea. GASTROINTESTINAL: Denies abdominal pain, nausea, vomiting, diarrhea SKIN: Denies rash or itching. MUSCULOSKELETAL: Denies myalgia. NEUROLOGIC: Denies headache. All systems reviewed & are unremarkable except as noted in HPI and below PMFSH Past Medical History Medical History Anxiety Depression Headache, migraine Surgical History Surgical History H/O section Hx of laparoscopy removal of ovarian cyst, endometriosis Family History Family History Grandparent Diabetes mellitus Non-Hodgkin lymphoma Dementia Cerebrovascular accident Mother Breast cancer Depression Father Alcohol abuse Bipolar affective disorder Grandparent Breast cancer Brain cancer Carcinoma of colon Grandparent Carcinoma of colon Social History Social History Smoking status: Never smoker Tobacco type: e-cigarettes/vaping Alcohol intake: never Alcohol use details: twice a year Substance use: never Substance use type: does not use Living arrangements: with family Gender identity (if verbalized by the patient): Female Spiritual care concerns: No Comments At time of signature, agree with nursing past medical, surgical, social and family history. There is no relevant family history pertinent to the presenting complaint Exam Narrative: GENERAL: Well-appearing, well-nourished, and in no acute distress. HEAD: Normocephalic EYES: PERRLA, conjunctivae clear ENT: Nares clear, turbinates edematous and erythematous, clear discharge. Mucous membranes moist. TM pearly loera with sharp light reflex bilaterally; no tragal tenderness. Oropharynx not erythematous without lesions. Tonsils not enlarged and without exudate, no drooling, no hoarseness, no trismus, uvula midline. NECK: Supple. No lymphadenopathy CHEST: Clear to auscultation, breath sounds equal. No wheezing, rhonchi, rales, or stridor. No respiratory distress, speaks in full sentences. HEART: Regular rate and rhythm. No murmur heard. SKIN: Warm, dry, no rash. NEURO: Alert and oriented x3. Cap refill less than 3, no rash noted on hands and feet PSYCH: Normal mood and affect Course Course Emergency Course: Patient is aware of diagnosis, understands and agrees to treatment plan. Anticipatory guidance given. Patient agrees to follow-up as directed and is aware of reasons to seek care at the emergency department. Portions of this record may have been created with voice recognition software Level of Care: Express Care Visit Vital Signs Vital signs: Reviewed. MDM - URI/Sore Throat MDM
== END 2023-08-31 16:33 | disposition home or self-care (01) ==
PROVIDERS: Emergency Provider Nurse Practitioner; PCP Nurse Practitioner Family
DX: B34.9 Viral infection, unspecified (principal); Z20.822 Contact with and (suspected) exposure to COVID-19; F41.9 Anxiety disorder, unspecified; F32.A Depression, unspecified
CPT/HCPCS: 87081; 87426; 87804; 87880; 99213; C9803; G0463

== ENCOUNTER 2023-11-13 15:36 | Emergency (ER) | payer BC, OTHER, SELFPAY ==
--- NOTE | ~2023-11-13 | XR_ITS ---
EXAMINATION: XR chest 2V DATE: 11/13/2023 15:52 INDICATION: Persistent cough. TECHNIQUE: Frontal and lateral views of the chest were obtained. COMPARISON: None. FINDINGS: There is no pneumonia, pleural effusion, or pneumothorax. The heart size is normal. IMPRESSION: 1. No acute cardiopulmonary disease. Reviewed, dictated and finalized at location [facility]. [facility] [employer]
[2023-11-13 15:41] VITALS: BP 151/69; PULSE 88; RESP 16; TEMP 37; O2SAT 100
[2023-11-13 15:44] VITALS: BP 151/69; PULSE 88; RESP 16; TEMP 37; O2SAT 100
--- NOTE | 2023-11-13 16:01 | ED.URI ---
HPI - URI/Sore Throat General Chief Complaint: Upper Respiratory Infection Stated Complaint: Cough/Chest Congestion Time Seen by Provider: 11/13/23 15:56 Source: patient and RN notes reviewed Mode of arrival: ambulatory Limitations: no limitations History of Present Illness HPI Narrative: Patient presents today with a one-week history of cough, chest congestion, rhinorrhea. States cough is worse when she lays down. Denies shortness of breath, fever, or any additional symptoms. No history of asthma. She has tried Mucinex, DayQuil, NyQuil, and cough drops without much relief. Related Data Home Medications Medication Instructions Recorded Confirmed sertraline 100 mg tablet 100 mg PO DAILY 04/16/23 04/16/23 Allergies Allergy/AdvReac Type Severity Reaction Status Date / Time No Known Allergies Allergy Unknown Verified 04/16/23 14:04 Review of Systems Review of Systems: CONSTITUTIONAL: Denies body aches, fever, chills, or sweats. EYES: Denies visual changes, redness, or discharge. ENT: Denies congestion, sore throat, or otalgia.+ rhinorrhea CARDIOVASCULAR: Denies chest pain, palpitations, or edema. RESPIRATORY: Denies dyspnea.+ cough, chest congestion GASTROINTESTINAL: Denies abdominal pain, nausea, vomiting, or diarrhea. GENITOURINARY: Denies dysuria or hematuria. SKIN: Denies rash, itching, or wounds. MUSCULOSKELETAL: Denies back pain, joint pain, or myalgia. NEUROLOGIC: Denies headache, numbness, tingling, or weakness. PSYCH: Denies depression or anxiety. [facility] Past Medical History Medical History Anxiety Depression Headache, migraine Surgical History Surgical History H/O section Hx of laparoscopy removal of ovarian cyst, endometriosis Family History Family History Grandparent Diabetes mellitus Non-Hodgkin lymphoma Dementia Cerebrovascular accident Mother Breast cancer Depression Father Alcohol abuse Bipolar affective disorder Grandparent Breast cancer Brain cancer Carcinoma of colon Grandparent Carcinoma of colon Social History Social History (Reviewed 11/13/23 @ 16:02 by Christi Christine, [facility], ) Smoking status: Never smoker Tobacco type: e-cigarettes/vaping Alcohol intake: never Alcohol use details: twice a year Substance use: never Substance use type: does not use Living arrangements: with family Gender identity (if verbalized by the patient): Female Spiritual care concerns: No Comments At time of signature, I have reviewed and agree with nursing past medical, surgical, social and family history unless otherwise noted. Please see nursing chart for further information. There is no relevant family history pertinent to the presenting complaint Exam Narrative: GENERAL: Well-appearing, well-nourished, and in no acute distress. HEAD: Normocephalic, atraumatic. EYES: EOMI. No redness or drainage. Conjunctivae normal. ENT: Mucous membranes pink and moist. Nares clear. No rhinorrhea. TMs normal bilaterally. Throat normal. Uvula midline. NECK: Normal AROM. Supple. No lymphadenopathy. CHEST: No respiratory distress. Clear to auscultation. HEART: Regular rate and rhythm. No murmur appreciated. EXTREMITIES: Normal range of motion. No edema. SKIN: Warm, dry, no rash. Capillary refill normal. Normal skin turgor. NEURO: No focal deficits. Alert and oriented x3. Gait steady. PSYCH: Normal affect. No signs of depression or anxiety. Course Course Level of Care: Express Care Visit Vital Signs Vital signs: Vital Signs Temperature 98.6 F 11/13/23 15:41 Pulse Rate 88 11/13/23 15:41 Respiratory Rate 16 11/13/23 15:41 Blood Pressure 151/69 H 11/13/23 15:41 Pulse Oximetry 100 11/13/23 15:41 Oxygen Del
== END 2023-11-13 16:10 | disposition home or self-care (01) ==
PROVIDERS: Emergency Provider Nurse Practitioner; PCP Nurse Practitioner Family
DX: J22 Unspecified acute lower respiratory infection (principal); F41.9 Anxiety disorder, unspecified; F32.A Depression, unspecified
CPT/HCPCS: 71046; 99213; G0463

== ENCOUNTER 2024-11-28 11:29 | Emergency (ER) | payer BC, OTHER, SELFPAY ==
--- OUTSIDE RECORDS SUMMARY | 2024-11-28 11:33 | XMS_ITS | Clinical Summary ---
Author Organization [facility] Address [address] [facility] [place] [address] Phone Care Team Providers Care Personnel Counselor Name Role Phone Mary Koenig LOUIE BENDER Primary Care Provider [phone] Allergies No known active allergies Medications triamcinolone (KENALOG) 0.1 % Cream Apply 2 times daily. Active traMADol (ULTRAM) 50 MG Tablet Take 1 Tablet by mouth every 8 hours as needed for Moderate or more severe pain. 12 Tablet 05/01/2021 Active HYDROcodone-tatyana taminophen (NORCO) 5-325 MG TabletIndicatio ns:Pelvic pain Take 1 Tablet by mouth every 8 hours as needed for Moderate or more severe pain. 12 Tablet 11/02/2022 Active Family History Medical History Relation Name Comments Attention Deficit Hyperactivity Disorder Brother Depression Brother Migraines Brother Alcohol Abuse Father Attention Deficit Hyperactivity Disorder Father Depression Mother Hypertension Mother Migraines Mother Relation Name Status Comments Brother Father Mother Social History Tobacco Use Types Packs/Day Years Used Date Smoking Tobacco: Never Smokeless Tobacco: Never Alcohol Use Standard Drinks/Week Comments Yes 0 (1 standard drink = 0.6 oz pur e alcohol) occasional Comments No Sex and Gender Information Value Date Recorded Sex Assigned at Not on file Legal Sex Female 8:38 AM CDT Gender Identity Not on file Sexual Orientation Not on file Last Filed Vital Signs Vital Sign Reading Time Taken Comments Blood Pressure 137/93 11/02/2022 1:28 PM HEAT REGULATOR Pulse 83 11/02/2022 1:28 PM HEAT REGULATOR Temperature 36.3 C (97.3 F) 11/02/2022 1:28 PM HEAT REGULATOR Respiratory Rate 18 11/02/2022 1:28 PM HEAT REGULATOR Oxygen Saturation 95% 11/02/2022 1:28 PM HEAT REGULATOR Inhaled Oxygen Concentration - - Weight 93.4 kg (206 lb) 11/02/2022 1:28 PM HEAT REGULATOR Height 167.6 cm (5' 6 ) 11/02/2022 1:28 PM HEAT REGULATOR Body Mass Index 33.25 11/02/2022 1:28 PM HEAT REGULATOR Plan of Treatment Health Maintenance Due Date Last Done Comments Hepatitis C Virus (HCV) Screening 1997 Hepatitis B Immunization (1 of 3 - 19+ 3-dose series) 2016 Influenza Immunization (#1) 06/14/202406/15, 09/20/2020, 07/08/2019 SARS-COV-2 Immunization ( season) 2024 Respiratory Syncytial Virus (RSV) Immunization (Adult) (1 - 1-dose 75+ series) 2072 DTaP/Tdap/Td Immunization Discontinued 04/15/2021 TdaP Immunization Completed 04/15/2021 Meningococcal Immunization (ACWY) Aged Out No longer eligible based on patient's age to complete this topic Pneumococcal Immunization Combined Aged Out No longer eligible based on patient's age to complete this topic Rotavirus Immunization Aged Out No lo nger eligible based on patient's age to complete this topic Insurance MEDICARE C [place] MEDICAID [place] Care Teams Personnel Counselor Relationship Specialty Start Date End Date Mary Koenig APRN, ENVELOPE MACHINE ADJUSTER [address] [place] [address] PCP - General Family Medicine 04/29/20
--- OUTSIDE RECORDS SUMMARY | 2024-11-28 11:33 | XMS_ITS | Clinical Summary ---
Author Organization [facility] Address [address] [place] [address] Care Team Providers Care Concrete Paver Name Role Phone Mary Koenig ART Primary Care Provider [phone] Source Comments [facility] [employer],non-owned Affiliates and Associated Physician Practices is amultiple site organization consisting of ambulatory clinics and hospital sitesin [place], [place], [place] and [place]. This disclosure is being madepursuant to the Care Everywhere program and may not contain all information available regarding this patient. Last updated 18.[facility] [employer] Allergies No known active allergies Active Problems Problem Noted Date Diagnosed Date Chest pain 01/26/2011 Social History Tobacco Use Types Packs/Day Years Used Date Smoking Tobacco: Never Assessed Sex and Gender Information Value Date Recorded Sex Assigned at Not on file Gender Identity Not on file Sexual Orientation Not on file Last Filed Vital Signs Vital Sign Reading Time Taken Comments Blood Pressure 114/76 01/26/2011 8:34 AM CDT Pulse 100 01/26/2011 8:34 AM CDT Temperature - - Respiratory Rate 16 01/26/2011 8:34 AM CDT Oxygen Saturation - - Inhaled Oxygen Concentration - - Weight 66.2 kg (145 lb 15.1 oz) 01/26/2011 8:34 AM CDT Height 163.9 cm (5' 4.53 ) 01/26/2011 8:34 AM CD T Body Mass Index 24.64 01/26/2011 8:34 AM CDT Plan of Treatment Health Maintenance Due Date Last Done Comments PAP SMEAR 1997 HIV SCREENING 2012 HEPATITIS C SCREENING 07/09/2015 DTAP/TDAP/TD VACCINES (1 - Tdap) 2016 HEPATITIS B VACCINE (1 of 3 - 19+ 3-dose series) 2016 COVID-19 VACCINE (1 - 2023-2 5 season) 2024 INFLUENZA VACCINE (#1) 2024 DEPRESSION SCREENING 10/14/2024 ZOSTER VACCINE (1 of 2) 2047 HIB VACCINE Aged Out No longer eligi ble based on patient's age to complete this topic HPV VACCINE Aged Out No longer eligi ble based on patient's age to complete this topic MENINGOCOCCAL (Group B) VACCINE Aged Out No longer eligible based on patient's age to complete this topic MENINGOCOCCAL VACCINE Aged Out No rob luiz eligible based on patient's age to complete this topic PNEUMOCOCCAL VACCINE Aged Out No long er eligible based on patient's age to complete this topic Care Teams Concrete Paver Relationship Specialty Start Date End Date Mary Koenig APRN-ORACLE ADF DEVELOPER [address] [place] [address] PCP - General 08/23/22
--- OUTSIDE RECORDS SUMMARY | 2024-11-28 11:33 | XMS_ITS | Data Portability ---
Author Organization [place] [facility] Address [address] [place] [address] Assessment Encounter Date Assessment Date Assessment LastModified by Organization Details LastModified Time 11/16/2022 11/16/2022 Pt here with below diagnosis - pt here for evaluation for their condition, evaluation of their medication use, and discussion for alternative treatments. [email or web address] Not available 11/16/2022 15:03:22 11/20/2022 11/20/2022 Pt being seen today for follow up visit. We discussed patients future use of MMJ. We discussed the risks and benefits. Pt understands that we will certify them, but the recommendation does not constitute a prescription for medical cannabis. [email or web address] Not available 11/20/2022 16:00:49 Plan of Treatment Reminders Order Date Submit Date Provider Last Modified By Organization Details Last Modified Time Details Appointments None record ed. Lab None record ed. Referral None record ed. Procedures None record ed. Surgeries None record ed. Imaging None record ed. Medication Orders None record ed. Patient TargetsNo targets recorded. Patient Instructions Encounter Date Encounter Id Patient Instructions Last Modified By Organization Details Last Modified Time 11/16/2022 [id number] I have discussed the risks and benefits of Medical Marijuana. Pt understands I am not prescribing this medication. I am certifying that this patient has a condition that is recognized by the state as qualifying for medical marijuana and this recommendation does not constitute a prescription for medical cannabis. Pt understands that my physician written certification form does not guarantee Medical Marijuana certification nor does it endorse the patient as needing medical marijuana. Patient understands that Medical Marijuana is a drug that the federal government has classified cannabis as a Schedule I controlled substance. Schedule 1 substances are defined, in part, as having (1) a high potential for abuse; (2) no currently accepted medical use in treatment in the [place]; and (3) a lack of accepted Safety for use under medical supervision. Federal law prohibits the manufacture, distribution and possession of cannabis even in states, which have modified their state laws to treat cannabis as a medicine. Pt also agrees that me, and the [facility] are my treating physicians and that we are in charge of treating the patient's conditions and that the patient will make a good blanca effort to remain under my treatment plan and acknowledge there will be follow up visits from this date forward to monitor the patient's condition. Discussed risks and benefits of Medical Marijuana. I have spent time discussing the patients condition, pain/medical management of the patient given their debilitating condition, the risks and benefits of this medication, a history and physical, gathering old medical records to look at the disease processes being evaluated, and answering of all questions. [email or web address] Not available 11/16/2022 15:03:22 11/20/2022 [id number] I have discussed the risks and benefits of Medical Marijuana. Pt understands I am not prescribing this medication. I am certifying that this patient has a condition that is recognized by the state as qualifying for medical marijuana and this recommendation does not constitute a prescription for medical cannabis. Pt understands that my physician written certification form does not guarantee Medical Marijuana certification nor does it endorse the patient as needing medical marijuana. Patient understands that Medical Marijuana is a drug that the federal government has classified cannabis as a Schedule I controlled substance. Schedule 1 substances are defined, in part, as having (1) a high potential for abuse; (2) no currently accepted medical use in treatment in the [place]; and (3) a lack of accepted Safety for use under medical supervision. Federal law prohibits the manufacture, distribution and possession of cannabis even in states, which have modified their state laws to treat cannabis as a medicine. Pt also agrees that me, and the [facility] are my treating physicians and that we are in charge of treating the patient's conditions and that the patient will make a good blanca effort to remain under my treatment plan and acknowledge there will be follow up visits from this date forward to monitor the patient's condition. Discussed risks and benefits of Medical Marijuana. I have spent time discussing the patients condition, pain/medical management of the patient given their debilitating condition, the risks and benefits of this medication, a history and physical, gathering old medical records to look at the disease processes being evaluated, and answering of all questions. [email or web address] Not available 11/20/2022 16:00:49 Reason for Referral None Reported. Medical Equipment None Reported. Allergies No known drug allergies Medications Name Sig Start Date Stop Date Status Note LastModified by Organization Details LastModified Time cyclobenzaprin e 10 mg tablet TAKE 1 TABLET BY MOUTH THREE TIMES A DAY NEEDED active Not Available Not Available No t Available ibuprofen 800 mg tablet TAKE 1 TABLET 3 TIMES A DAY BY ORAL ROUTE NEEDED. active Not Available Not Available No t Available hydrocodone 5 mg-acetaminoph en 325 mg tablet TAKE 1 TABLET BY MOUTH EVERY 8 HOURS NEEDED FOR MODERATE OR MORE SEVERE PAIN active Not Available Not Available No t Available ondansetron HCl 4 mg tablet TAKE 1 TAB BY MOUTH EVERY 8 HOURS NEEDED active Not Available Not Available No t Available sertraline 100 mg tablet TAKE 1 TABLET BY MOUTH EVERY DAY active Not Available Not Available No t Available citalopram 20 mg tablet TAKE 1 TABLET BY MOUTH EVERY DAY active Not Available Not Available No t Available cephalexin 500 mg capsule TAKE 1 CAPSULE BY MOUTH EVERY 6 HOURS FOR 7 DAYS active Not Available Not Available No t Available ferrous sulfate 325 mg (65 mg iron) tablet TAKE 1 TABLET BY MOUTH EVERY DAY active Not Available Not Available No t Available gabapentin 300 mg capsule TAKE 1 CAPSULE BY MOUTH THREE TIMES A DAY active Not Available Not Available No t Available ibuprofen 600 mg tablet TAKE 1 TABLET BY MOUTH EVERY 6 HOURS NEEDED FOR CRAMPS active Not Available Not Available No t Available sertraline 50 mg tablet TAKE 1 TABLET BY MOUTH DAILY active Not Available Not Available No t Available amoxicillin 875 mg-potassium clavulanate 125 mg tablet TAKE 1 TABLET BY MOUTH EVERY 12 HOURS FOR 10 DAYS active Not Available Not Available No t Available Vitals None Recorded Social History None recorded. Functional Status None recorded. Mental Status None recorded. Family History Nothing Reported. Medical History No medical history recorded. Gynecological HistoryNo gynecological history recorded. Obstetrics History GPAL:G 0 P 0 0 0 0 Past Encounters Encounter ID Performer Location Encounter Start Date Encounter Closed Date Diagnosis/Indication Diagnosis SNOMED-CT Code Diagnosis ICD10 Code Diagnosis Note [id number] Christi Kurtz MD [facility] [place] [address] 11/16/2022 15:00:32 11/16/2022 15:47:18 Spinal cord disease 59942587 G95.9 [id number] Snow Zhang NP [facility] [address] [place] [address] 11/20/2022 15:29:41 11/20/2022 16:04:54 Spinal cord disease 76203924 G95.9 Health Concerns Section Related Observation LastModified by Organization Detai ls LastModified Time None Recorded Concern Status LastModified by Organization Details LastModified Time None Recorded Advance Directives Directive None Recorded Payers Encounter Date Sequence Insurance Name Policy Number Policy Perera Covered Member ID Perera Member ID Guarantor Name 11/16/[address] [facility] [place] [id number] Tenzin De La Cruz [id number] Ankita De La Cruz 11/20/[address] [facility] [employer]) [id number] Tenzin De La Cruz [id number] Ankita De La Cruz Notes Date Note Type Note Provider Name and Address Organization Details Recorded Time 11/16/2022 text/html The patient woul d like to discuss medications, the disease, and how to handle it. Pt would also like to discuss alternative treatments to this condition. Pt was referred here for further evaluation and treatment if necessary. Patient has a diagnosis of qualifying condition - SPINAL CORD DISEASE Christi Kurtz MD [address], [place], [address], [facility] 11/16/2022 15:03:45 11/20/2022 text/html Pt saw the Provider to discuss medications, the disease, and how to handle it. Also discussed alternative treatments to this condition. Pt was referred here for further evaluation and treatment if necessary. spinal cord disease Pt now presents for their 2nd visit to discuss the condition and develop a patient-provider relationship. We discussed the above and future use of medical cannabis. Snow Zhang NP [address], [place], [address], [facility] 11/20/2022 16:01:11 OBGyn Episode No OBEpisode recorded.
--- OUTSIDE RECORDS SUMMARY | 2024-11-28 11:33 | XMS_ITS | Patient Health Summary ---
Author Organization [facility] Address [address] [place] [address] Care Team Providers Care Timber Poisoner Name Role Phone Mary Koenig YULIA-LOUIE Primary Care Provider [phone] [facility],non-owned Affiliates and Associated Physician Practices is amultiple site organization consisting of ambulatory clinics and hospital sitesin [place], [place], [place] and [place]. This disclosure is being madepursuant to the Care Everywhere program and may not contain all information available regarding this patient. Last updated 18.[facility] Allergies No known active allergies Active Problems [...] Mass Index 24.64 01/26/2011 8:34 AM CDT Procedures * CARDIAC EVENT MONITOR ORDER(Performed 03/23/2011) * ECHO CONSULT - PEDIATRIC(Performed 01/26/2011) Performed for Chest pain * EKG 15-LEAD(Performed 01/26/2011) Performed for Chest pain Results * CARDIAC EVENT MONITOR ORDER (03/23/2011 8:04 AM CDT) Narrative Procedure Note Document, Scanned - 03/23/2011 8:04 AM CDT Scanned Document CARDIAC SERVICES ORD ERABLES * ECHO CONSULT - PEDIATRIC (01/26/2011 9:28 AM CDT) 01/26/2011 9:28 AM CDT Narrative [facility] - 01/26/2011 9:43 AM CDT , Congenital Transthoracic Echocardiogram 2D, M-mode, Doppler, and Color Doppler Name: ELSIE MORAN MR #: [id number] Study date: 01/26/2011 Age: 15 years : 1995 Gender: Female Ht: 64.2 in / 163 cm Wt: 145.2 lb / 66 kg BSA: 1.71 m HR: BP: / age: KHADIJAH: Maternal age: INFORMATION TECHNOLOGY AUDITOR: Desiree Kruse MD PEDIATRIC ECHO HASHER OPERATOR: Sahra Graves RDCS Indications: Chest pain. History: Signs/symptoms include murmur. Procedure: The procedure was performed in the echo lab. Anatomic relationships: Visceral situs: normal. Left sided cardiac apex (levocardia). Normal atrial situs (atrial situs solitus). Concordant atrioventricular alignment. Ventricular d-loop. Normal infundibular anatomy. Concordant ventriculoarterial connection. Normally related great vessels. Systemic veins: SVC: The superior vena cava and left innominate vein appeared of normal caliber, with normal flow. IVC: The inferior vena cava was normal in size and course. IVC Doppler: The flow pattern was normal. Pulmonary veins: The pulmonary veins drained normally to the left atrium. Doppler: Doppler flow pattern was normal in the pulmonary vein(s). Right atrium: Size was normal. Left atrium: Size was normal. Atrial septum: No defect or patent foramen ovale was identified. Tricuspid valve: The valve structure was normal. Doppler: The transtricuspid velocity was within the normal range. There was no evidence for tricuspid stenosis. There was trivial regurgitation. Mitral valve: Valve structure was normal. There is no mitral valve prolapse. Doppler: The transmitral velocity was within the normal range. There was no evidence for stenosis. There was no regurgitation. Right ventricle: The cavity size was normal. Wall thickness was normal. Systolic function was normal. RV outflow tract: There was no obstruction. Left ventricle: The cavity size was normal. Wall thickness was normal. Systolic function was normal. There were no regional wall motion abnormalities. Doppler: Left ventricular diastolic function parameters were normal. LV outflow tract: There was no outflow obstruction. Ventricular septum: Thickness was normal. The septum was intact. Pulmonic valve: Leaflets exhibited normal thickness and normal cuspal separation. Doppler: The transpulmonic velocity was within the normal range. There was trivial regurgitation. Aortic valve: The valve was trileaflet. Leaflets exhibited normal thickness and normal cuspal separation. Doppler: Transaortic velocity was within the normal range. There was no stenosis. There was no regurgitation. Pulmonary artery: The main pulmonary artery was normal, with normal-sized, confluent proximal branch pulmonary arteries. Aorta: There was a normal-sized aortic arch with normal brachiocephalic branching. The root was normal in size. The ascending aorta size was normal. Coronary arteries: The size and course of the left main, proximal left anterior descending, and proximal right coronary arteries were normal. Right coronary artery: Flow was normal. Left main coronary artery: Flow was normal. Left anterior descending: Flow was normal. Extracardiac shunting: No ductal shunt was detected by Doppler. Pericardium: There was no pericardial effusion. The pericardium was normal in appearance. Impressions: - Diagnoses: Normal intracardiac anatomy. Prepared and signed by Desiree Kruse MD Signed 01/26/2011 09:43:10 DOPPLER MEASUREMENTS Pulmonic valve (Reference) Regurg peak jet jovany 180 cm/s Legend: Predicted normals (shown in italics) are given as mean 2 SD Asterisk (*) garland values outside the specified normal range. System measurement tables MM %FS: 33 % Ao Diam: 26.3 mm EDV(Teich): 84.6 ml EF(Teich): 61.8 % ESV(Teich): 32.3 ml IVSd: 7.8 mm IVSs: 9.2 mm LA Diam: 27.7 mm LA/Ao: 1.1 LVIDd: 43.3 mm LVIDs: 29 mm LVPWd: 4.6 mm LVPWs: 6.5 mm LVd Mass: 82.3 g LVd Mass (ASE): 77.3 g LVd Mass Ind (ASE): 45.2 g/m2 LVd Mass Index: 48.1 g/m2 LVs Mass: 53.9 g LVs Mass (ASE): 54.6 g LVs Mass Ind (ASE): 31.9 g/m2 LVs Mass Index: 31.5 g/m2 SV(Teich): 52.3 ml Procedure Note 01/26/2011 , Congenital Transthoracic Echocardiogram 2D, M-mode, Doppler, and Color Doppler Name: ELSIE MORAN MR #: [id number] Study date: 01/26/2011 Age: 15 years : 1995 Gender: Female Ht: 64.2 in / 163 cm Wt: 145.2 lb / 66 kg BSA: 1.71 m HR: BP: / age: KHADIJAH: Maternal age: INFORMATION TECHNOLOGY AUDITOR: Desiree Kruse MD PEDIATRIC ECHO HASHER OPERATOR: Sahra Graves RDCS Indications: Chest pain. History: Signs/symptoms include murmur. Procedure: The procedure was performed in the echo lab. Anatomic relationships: Visceral situs: normal. Left sided cardiac apex (levocardia). Normal atrial situs (atrial situs solitus). Concordant atrioventricular alignment. Ventricular d-loop. Normal infundibular anatomy. Concordant ventriculoarterial connection. Normally related great vessels. Systemic veins: SVC: The superior vena cava and left innominate vein appeared of normal caliber, with normal flow. IVC: The inferior vena cava was normal in size and course. IVC Doppler: The flow pattern was normal. Pulmonary veins: The pulmonary veins drained normally to the left atrium. Doppler: Doppler flow pattern was normal in the pulmonary vein(s). Right atrium: Size was normal. Left atrium: Size was normal. Atrial septum: No defect or patent foramen ovale was identified. Tricuspid valve: The valve structure was normal. Doppler: The transtricuspid velocity was within the normal range. There was no evidence for tricuspid stenosis. There was trivial regurgitation. Mitral valve: Valve structure was normal. There is no mitral valve prolapse. Doppler: The transmitral velocity was within the normal range. There was no evidence for stenosis. There was no regurgitation. Right ventricle: The cavity size was normal. Wall thickness was normal. Systolic function was normal. RV outflow tract: There was no obstruction. Left ventricle: The cavity size was normal. Wall thickness was normal. Systolic function was normal. There were no regional wall motion abnormalities. Doppler: Left ventricular diastolic function parameters were normal. LV outflow tract: There was no outflow obstruction. Ventricular septum: Thickness was normal. The septum was intact. Pulmonic valve: Leaflets exhibited normal thickness and normal cuspal separation. Doppler: The transpulmonic velocity was within the normal range. There was trivial regurgitation. Aortic valve: The valve was trileaflet. Leaflets exhibited normal thickness and normal cuspal separation. Doppler: Transaortic velocity was within the normal range. There was no stenosis. There was no regurgitation. Pulmonary artery: The main pulmonary artery was normal, with normal-sized, confluent proximal branch pulmonary arteries. Aorta: There was a normal-sized aortic arch with normal brachiocephalic branching. The root was normal in size. The ascending aorta size was normal. Coronary arteries: The size and course of the left main, proximal left anterior descending, and proximal right coronary arteries were normal. Right coronary artery: Flow was normal. Left main coronary artery: Flow was normal. Left anterior descending: Flow was normal. Extracardiac shunting: No ductal shunt was detected by Doppler. Pericardium: There was no pericardial effusion. The pericardium was normal in appearance. Impressions: - Diagnoses: Normal intracardiac anatomy. Prepared and signed by Desiree Kruse MD Signed 01/26/2011 09:43:10 DOPPLER MEASUREMENTS Pulmonic valve (Reference) Regurg peak jet jovany 180 cm/s Legend: Predicted normals (shown in italics) are given as mean 2 SD Asterisk (*) garland values outside the specified normal range. System measurement tables MM %FS: 33 % Ao Diam: 26.3 mm EDV(Teich): 84.6 ml EF(Teich): 61.8 % ESV(Teich): 32.3 ml IVSd: 7.8 mm IVSs: 9.2 mm LA Diam: 27.7 mm LA/Ao: 1.1 LVIDd: 43.3 mm LVIDs: 29 mm LVPWd: 4.6 mm LVPWs: 6.5 mm LVd Mass: 82.3 g LVd Mass (ASE): 77.3 g LVd Mass Ind (ASE): 45.2 g/m2 LVd Mass Index: 48.1 g/m2 LVs Mass: 53.9 g LVs Mass (ASE): 54.6 g LVs Mass Ind (ASE): 31.9 g/m2 LVs Mass Index: 31.5 g/m2 SV(Teich): 52.3 ml Vinicius Kruse MD ECHO ORDERABLES [facility] [address] [place] [address] * EKG 15-LEAD (01/26/2011) Vinicius Kruse MD ECG ORDERABLES Care Teams Timber Poisoner Relationship Specialty Start Date End Date Mary Koenig APRN-CNP [address] [place] [id number] PCP - General 08/23/22
--- OUTSIDE RECORDS SUMMARY | 2024-11-28 11:33 | XMS_ITS | Data Portability ---
Author Organization 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 We have agreed to complete the evaluation with pelvic ultrasound. The patient will return after the pelvic ultrasound to discuss those findings and to develop a treatment plan. A comprehensive history and physical exam was performed today. We spent over 25 minutes [id number]. The patient was given precautions. She will contact clinic if pelvic pain increases in frequency or intensity. Also notify clinic of any new symptoms associated with pelvic pain. She does not appear to have an acute pelvic infection today, but was asked to contact us Immediately with nausea, vomiting, fever, chills. patient had hysterectomy about 18 months ago. It was for dysmenorrhea and menorrhagia. Moderate to severe endometriosis was observed. [email or web address] Not available 08/21/2024 10:56:19 Plan of Treatment Reminders Order Date Submit Date Provider Last Modified By Organization Details Last Modified Time Details Appointments None recorded. Lab dhea-sulfat e, serum 2024 025 [facility] (Lab), [address] [place], [address], 04:07:47 estradiol, serum 2024 025 [facility] (Lab), [address] [place], [address], 5 04:07:48 FSH (follicle-s timulating hormone), serum 2024 025 [facility] (Lab), [address], [place], [address], 5 04:07:48 HbA1c (hemoglobin A1c), blood 2024 025 [facility] (Lab), [address] [place], [address], 5 04:07:48 lh (luteinizin g hormone), serum 2024 025 [facility] (Lab), [address], [place], [address], 5 04:07:48 progesteron e, serum 2024 025 [facility] (Lab), [address] [place], [address], 5 04:07:48 prolactin, serum 2024 025 [facility] (Lab), [address] [place], [address], 5 04:07:49 shbg (sex hormone-bin ding globulin), serum 2024 025 [facility] (Lab), [address] [place], [address], 5 04:07:49 TSH, serum or plasma 2024 025 [facility] (Lab), [address] [place], [address], 5 04:07:49 testosteron e free/testos terone total, ratio, serum 2024 025 [facility] (Lab), [address], [place], [address], 5 04:07:49 ova1, serum 2023 024 GIORGI [facility] (Lab), [address] [facility], [place], [address], 4 10:48:38 Referral None recorded. Procedures None recorded. Surgeries None recorded. Imaging US, transvagina l [address], [address], [address], [place], [address], 19:35:34 US, pelvis 2023 [address], [address], [place], [address], 14:34:30 US, transvagina l [address]23 [address], [address], [place], [address], 14:34:30 Medication Orders None recorded. Patient TargetsNo targets recorded. Patient InstructionsNo instructions recorded. Reason for Referral None Reported. Results Created Date Observation Date Name Description Value Unit Range Abnormal Flag Note LastModifiedBy Organization Detail LastModifiedTime 09/17/20 24 09/17/2024 OVA 1 scan result See Tess d Result Not Available [facility] (Lab) [address] [facility], [place], [address], 09/22/2024 10:48:38 08/27/20 24 08/27/2024 US, pelvi s No observ ation record ed. [email or web address] [place], [place], [address], 08/27/2024 13:53:30 08/27/20 24 08/27/2024 US, trans vagin al No observ ation record ed. [email or web address] [place] [address], [place], [address], 08/27/2024 13:53:41 08/27/20 24 08/27/2024 US, pelvi s No observ ation record ed. [email or web address] [address], [place], [address], 08/27/2024 14:29:51 11/19/19 25 11/19/2024 US, trans vagin al No observ ation record ed. [email or web address] [place] [address], [place], [address], 11/19/2024 18:37:10 11/19/19 25 11/19/2024 US, trans vagin al No observ ation record ed. [email or web address] [address], [place], [address], 11/19/2024 22:26:51 Result Notes None recorded. Procedures Surgical History Date Name Laterality Status Provider Name and Address Organization Details Recorded Time 03/06/20 ROBOTIC ASSISTED HYSTERECTOMY WITH SALPINGECTOMY (SURG) completed Suly Levine [facility] 03/07/2023 10:17:56 Tubal Ligation completed [facility] 11/14/2022 11:38:53 Endometrial Ablation completed [facility] 11/14/2022 11:38:53 Caesarean Section completed [facility] 11/14/2022 11:38:53 laparoscopy completed Madyson Patel CHER[facility]- [address], [place], [address], [facility] 11/15/2022 14:32:29 Imaging Results Imaging Date Name Status LastModified by Organization Details LastModified Time 08/27/2024 US, pelvis completed [email or web address] [place] [address], [place], [address], 08/27/2024 13:53:30 08/27/2024 US, transvaginal completed [email or web address] [place] [address], [place], [address], 08/27/2024 13:53:41 08/27/2024 US, pelvis completed [email or web address] [address], [place], [address], 08/27/2024 14:29:51 11/19/2024 US, transvaginal completed [email or web address] [place] [address], [place], [address], 11/19/2024 18:37:10 11/19/2024 US, transvaginal completed [email or web address] [address], [place], [address], 11/19/2024 22:26:51 Procedure Notes None recorded. Medical Equipment None Reported. Allergies No known drug allergies Medications Name Sig Start Date Stop Date Status Note LastModified by Organization Details LastModified Time semaglutide injection 5 mg/2ml INJECT ONCE WEEKLY SUBCUTANE OUSLY: WEEK 1 INJECT 10 UNITS. WEEK 2 INJECT 20 UNITS. WEEK 3 AND ON ADJUST BY 5 UNITS DIRECTED 11/20 completed Not Available Not Available Not Available cyclobenzap rine 10 mg tablet TAKE 1 TABLET BY MOUTH THREE TIMES A DAY NEEDED active Not Available Not Available No t Available promethazin e-DM 6.25 mg-15 mg/5 mL oral syrup 5 ML ORALLY EVERY 4 - 6 HOURS NEEDED FOR COUGH 08/21 completed Not Available Not Available Not Available ibuprofen 800 mg tablet TAKE 1 TABLET 3 TIMES A DAY BY ORAL ROUTE NEEDED. 11/14 completed Not Available Not Available Not Available benzonatate 200 mg capsule 200 MG ORALLY THREE TIMES A DAY NEEDED FOR COUGH 08/21 completed Not Available Not Available Not Available hydrocodone 5 mg-acetamin ophen 325 mg tablet TAKE 1 TABLET BY MOUTH EVERY 8 HOURS NEEDED FOR MODERATE OR MORE SEVERE PAIN 11/14 completed Not Available Not Available Not Available ondansetron HCl 4 mg tablet TAKE 1 TAB BY MOUTH EVERY 8 HOURS NEEDED 11/14 completed Not Available Not Available Not Available prednisone 20 mg tablet TAKE 2 TABS BY MOUTH DAILY FOR 5 DAYS 08/21 completed Not Available Not Available Not Available sertraline 100 mg tablet TAKE 1 TABLET BY MOUTH EVERY DAY active Not Available Not Available No t Available ondansetron 8 mg disintegrat ing tablet PLACE 1 TABLET EVERY 8 HOURS BY TRANSLING UAL ROUTE NEEDED, FOR NAUSEA. 08/21 completed Not Available Not Available Not Available oxycodone-a cetaminophe n 5 mg-325 mg tablet TAKE 1 TABLET BY MOUTH EVERY 4 HOURS NEEDED FOR PAIN 07/05 completed Not Available Not Available Not Available citalopram 20 mg tablet TAKE 1 TABLET BY MOUTH EVERY DAY 11/14 completed Not Available Not Available Not Available Sure Comfort Insulin Syringe 1 mL 30 gauge x 5/16 USE NEW SYRINGE FOR EACH INJECTION 09/17 completed Not Available Not Available Not Available cephalexin 500 mg capsule TAKE 1 CAPSULE BY MOUTH EVERY 6 HOURS FOR 7 DAYS 11/14 completed Not Available Not Available Not Available cyanocobala min (vit B-12) 1,000 mcg/mL injection solution INJECT 1ML SUBQ 1-3 TIMES WEEKLY BY 2 DAYS active Not Available Not Available No t Available ferrous sulfate 325 mg (65 mg iron) tablet TAKE 1 TABLET BY MOUTH EVERY DAY 11/14 completed Not Available Not Available Not Available gabapentin 300 mg capsule TAKE 1 CAPSULE BY MOUTH FOUR TIMES A DAY active Not Available Not Available No t Available sertraline 25 mg tablet TAKE 1 TABLET BY MOUTH EVERY DAY 11/20 completed Not Available Not Available Not Available buspirone 7.5 mg tablet TAKE 1 TABLET BY MOUTH TWICE A DAY active Not Available Not Available No t Available hydroxyzine HCl 25 mg tablet TAKE 1 TABLET BY MOUTH EVERY DAY NEEDED FOR PANIC ATTACKS 11/20 completed Not Available Not Available Not Available ibuprofen 600 mg tablet TAKE 1 TABLET BY MOUTH EVERY 6 HOURS NEEDED FOR CRAMPS 11/14 completed Not Available Not Available Not Available ondansetron 4 mg disintegrat ing tablet 4 MG ORALLY EVERY 6 HOURS NEEDED FOR NAUSEA AND VOMITING 07/05 completed Not Available Not Available Not Available sertraline 50 mg tablet TAKE 1 TABLET BY MOUTH EVERY DAY 09/17 completed Not Available Not Available Not Available amoxicillin 875 mg-potassiu m clavulanate 125 mg tablet TAKE 1 TABLET BY MOUTH EVERY 12 HOURS FOR 10 DAYS 11/14 completed Not Available Not Available Not Available hydroxyzine pamoate 25 mg capsule TAKE 1 CAPSULE 3 TIMES A DAY BY ORAL ROUTE NEEDED FOR 90 DAYS, FOR BREAKTHRO UGH ANXIETY. active Not Available Not Available No t Available aripiprazol e 2 mg tablet TAKE 1 TABLET EVERY DAY BY ORAL ROUTE DIRECTED FOR 30 DAYS, FOR INTRUSIVE THOUGHTS. active Not Available Not Available No t Available Vitals Date Recorded Body weight Systolic blood pressure Diastolic blood pressure Provider Name and Address Organization Details Last Updated DateTime 08/21/2024 47306.31 g 103 mm[Hg] 68 mm[Hg] Geena Mina [facility] 08/21/2024 10:19:18 Date Recorded Body height Body mass index (BMI) Body weight Systolic blood pressure Diastolic blood pressure Provider Name and Address Organization Details Last Updated DateTime 09/17/2024 167.64 cm 25.2 kg/m2 06076.41 g 111 mm[Hg] 75 mm[Hg] [facility] 4 11:05:32 Date Recorded Body height Body mass index (BMI) Body weight Systolic blood pressure Diastolic blood pressure Provider Name and Address Organization Details Last Updated DateTime 11/20/2024 167.64 cm 24.4 kg/m2 87079.45 g 109 mm[Hg] 74 mm[Hg] [facility] 5 10:34:46 Social History Question Answer Notes LastModified by Organizat ion Details LastModified Time Tobacco Smoking Status Never Smoker [email or web address] 07/05[facility]2023 10:12:54 What Is Your Level Of Alcohol Consumption? None Information not available 11/14/2022 Are You Blind Or Do You Have Difficulty Seeing? No Information not available 11/14/2022 What Is Your Level Of Caffeine Consumption? Occasional Information not available 11/14/2022 How Much Tobacco Do You Chew? None Information not available 11/14/2022 In The 14 Days Before Symptom Onset, Have You Had Close Contact With A Laboratory-confir med COVID-19 While That Case Was Ill? No Information not available 11/14/2022 In The 14 Days Before Symptom Onset, Have You Had Close Contact With A Person Who Is Under Investigation For COVID-19 While That Person Was Ill? No Information not available 11/14/2022 Have You Been To An Area Known To Be High Risk For COVID-19? No Information not available 11/14/2022 Are You Deaf Or Do You Have Serious Difficulty Hearing? No Information not available 11/14/2022 What Type Of Diet Are You Following? REGULAR Information not available 07/05/2023 What Is The Highest Grade Or Level Of School You Have Completed Or The Highest Degree You Have Received? 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 No Information not available 11/14/2022 Do You Use Protection During Sex? No Information not available 11/14/2022 Do You Use Your Seat Belt Or Car Seat Routinely? Yes Information not available 11/14/2022 Do You Have Smoke And Carbon Monoxide Detectors In Your Home? Yes Information not available 11/14/2022 How Much Tobacco Do You Smoke? No Information not available 11/14/2022 Do You Feel Stressed (tense, Restless, Nervous, Or Anxious, Or Unable To Sleep At Night)? [id number] Information not available 11/14/2022 Do You Use Any Illicit Or Recreational Drugs? No Information not available 11/14/2022 Do You Use Sunscreen Routinely? Yes Information not available 11/14/2022 Have You Used IV Drugs? No Information not available 11/14/2022 Sex: Unknown Functional Status Question Answer Note LastModified by Organizat ion Details LastModified Time Are you able to walk? YESWOREST Information not available 11/14/2022 What is your exercise level? Occasional Information not available 11/14/2022 Mental Status None recorded. Family History Relationship Description Onset Age of this Age Resolved Age Notes LastModified by Organization Details LastModified Time Paternal Grandfather Malignant tumor of lung [email or web address] Not available 2022 10:03:27 Maternal Grandmother Disorder of thyroid gland [email or web address] Not available 2022 10:03:27 Mother Malignant tumor of breast [email or web address] Not available 2022 10:03:27 Medical History Condition Response Allergies (Food, seasonal, environmental ) N Other Y Blood Transfusion N Drug/Latex Allergies/Reactions N Breast Cancer N Dermatologic Disorders N Lung Disease N Defects or Inherited Disease N Breast Problem N Gestational Diabetes N Hematologic disorders N Anesthesia Complications N History of STI N Deep Vein Thrombosis N Polycystic ovary syndrome N Anxiety Disorder Y Autoimmune disease Y Arthritis N Infertility N Polyps N Acid Reflux (GERD) N History of abnormal pap N Cancer N Stroke N Varicosities N Neurologic/Epilepsy N Endometriosis Y High Cholesterol N Headaches Y Fibromyalgia N Kidney Disease N Heart Problems N Kidney or Bladder Problems N Thyroid Problems N GI Problems N Eating Disorder N Anemia N Art (IVF or FET) N Psychiatric Illness N Ovarian Cancer N Diabetes N Pulmonary (TB, Asthma) N Hepatitis/Liver Disease N Urinary Tract Infection N Abuse/Domestic Violence N Asthma N Trauma/Violence N Depression/ depression Y Pre-Eclampsia N Hypertension N Osteoporosis N Thrombophilias N Gynecological History Statement/Question Response Abnormal Pap N Date of LMP 10/29/2022 On BCP's at Conception? N N Was last menstrual period normal N STIs/STDs N HPV Vaccine N Duration of Flow (days) 7 Current Control Method Hysterectom y Age at First Child 24 Sexually Active? Y Menses Monthly N Age of first menstrual cycle 16 Date of Last Pap Smear Sexual Problems? Y Desired Control Method Hysterectom y LMP Unknown N Obstetrics History GPAL:G 2 P 2 0 0 2 Type Value Full Term 2 Living 2 Total 2 Past Encounters Encounter ID Performer Location Encounter Start Date Encounter Closed Date Diagnosis/Indication Diagnosis SNOMED-CT Code Diagnosis ICD10 Code Diagnosis Note [id number] Madyson [place] [address] [address] 11/14/2022 11:23:07 11/15/2022 16:42:31 Chronic pelvic pain of female 933918826 R10.2 N80.9 N94.10 N94.5 Today we discussed the following: Updating STD screenUS --release signed for recent USConsult with Dr. Kodak GRAMAJO--intere sted in hysterecto my vs hormonal options to manage painful periods.Hx failed endometria l ablationHx failed hormonal BC optionsHx of tubal ligation Dyspareunia 24365213 N94 .10 Pursue PT pelvic floor for pelvic floor myalgia and spasticity which is common in those with hx of chronic pelvic pain/endom etriosis. Additional literature given from internatio nal pelvic pain society [id number] Nitin Candelario MD [place] [address],[place] [address] 11/29/2022 12:06:02 11/29/2022 21:36:56 [id number] Nitin Candelario MD [place] [address],[place] [address] 11/30/2022 15:56:03 11/30/2022 21:34:19 [id number] Nitin Candelario MD [place] [address],[place] [address] 12/20/2022 12:26:19 12/20/2022 14:28:45 Dysmenorrhea 383822941 N94.6 Pain in pelvis 28042363 R10.2 Dyspareunia 97852516 N94 .10 Endometrio sis of pelvis 16447723 N80.30 this patient is a 27-year-ol d female with severe pelvic pain. She has had multiple endometrio sis surgeries. She has failed medical treatments . She has used several hormonal contracept félix methods that have failed. She has deep dyspareuni a. She has dysmenorrh ea. She has continuous pelvic pain. She is here to talk about treatment options and surgical definitive treatment options. We spoke for over 40 minutes. More than 50% was counseling and we agreed to proceed with total laparoscop ic or robotic hysterecto my and bilateral salpingect bradley. We had a lengthy discussion regarding ovarian preservati on and its affect on endometrio sis pain. She understand s that surgery may not cure her pain. But a hysterecto my is likely to cure endometrio sis related pelvic pain. She understand s the implicatio n of taking out the ovaries in a young person. She also understand s the ovarian cancer risk and the risk of keeping the ovaries. We will proceed with robotic assisted hysterecto my with bilateral salpingect bradley. [id number] Nitin Candelario MD [place] [address],[place] [address] 02/27/2023 15:48:01 03/01/2023 10:21:29 Endometriosis of pelvis 31373709 N80.30 this patient is a 27-year-ol d female was severe pelvic pain and endometrio sis. We have agreed to perform robotic assisted hysterecto my with bilateral salpingect bradley. She understand s risks, benefits, and alternativ es. She has completed the informed consent process and is ready to proceed. Pain in pelvis 11551869 R10.2 [id number] Winifred Narayan [place] [address] [address] 03/13/2023 10:08:25 03/13/2023 10:10:26 [id number] Nitin Candelario MD [place] [address] [address] 03/13/2023 16:00:29 03/13/2023 17:06:56 Postoperative care [id number] Z48.89 this patient is a 27-year-ol d female presents for postop follow-up. She had a incidental cystotomy. She had a cystogram today that was normal. Catheter was removed in the office. She tolerated it well. She has no complaints . We discussed her pathology report. She will follow-up as needed. Her incisions are clean dry and intact [id number] Nitin Candelario MD [place] [address] [address] 07/05/2023 10:03:14 07/05/2023 11:15:34 Dyspareunia 84931445 N94.10 Pain in pelvis 47274976 R10.2 Dysmenorrhea 557277055 N 94.6 Reduced libido 4334350 R 68.82 27-year-ol d female presents for diminished desire. We discussed her desires she. She is on antidepres marina she is on 100 mg of sertraline . She is intending to do discontinu e that medication . She is going to do that in a stepwise fashion. I believe her desire will return with the discontinu ation of medication . We talked about testostero ne therapy we talked about vaginal lubricatio n. Lubricatio n recommenda tions were made. We spent 40 minutes face-to-fa ce. We talked about multiple complex topics including desire, depression , and to presents, dyspareuni a. She returned to discuss a treatment strategy for diminished libido if the discontinu ation the antidepres sants is in satisfacto ry. talked about dysmenorrh ea and her recent treatment and the benefit her recent hysterecto my. [id number] Nitin Candelario MD [place] [address],[place] [address] 08/21/2024 10:09:45 08/21/2024 11:08:54 Pain in pelvis 83790687 R10.2 [id number] Flor Goyal [place] [address],[place] [address] 08/27/2024 12:29:20 08/27/2024 13:11:36 Pain in pelvis 84607401 R10.2 [id number] Nitin Candelario MD [place] [address],[place] [address] 09/17/2024 11:00:39 09/17/2024 11:46:13 Cyst of ovary 92340808 N83.209 this patient is a 29-year-ol d female with pelvic pain who presents for pelvic ultrasound follow-up. Patient's pain is modest. Mild to moderate. It remains stable. Pelvic ultrasound revealed a normal left ovary. The pain is on the left side. With the right ovary has a 4 cm complex cyst. There was debris within the cyst. To obtain OVA1. To follow-up in 2 months. We discussed various forms of treatment including surgery. We agreed to observatio n and repeat ultrasound in 2 months along with OVA1 testing. I spent over 20 minutes on the patient's care in total. [id number] Flor Goyal [place] [address] [address] 11/19/2024 10:22:15 11/19/2024 11:21:22 Cyst of right ovary 1798705946 6132178 N83.291 [id number] Nitin Candelario MD [place] [address] [address] 11/20/2024 10:27:00 11/20/2024 11:32:54 Mood disorder 74052255 F39 Cyst of ovary 74124609 N 83.209 29-year-ol d female presents for ultrasound follow-up. Her ovarian cyst has resolved. Her symptoms have resolved. We talked about her mood disorder. We talked about her anxiety. We talked about her ovaries. She is status post hysterecto my. We talked her hormones. We talked about oophorecto my in hormone replacemen t. We discussed how that might stabilize her mood. Also understand s that it could make it worse. And could affect desire. She is going to consider discussion . She is going to observe for symptoms. I spent over 20 minutes on her care in total. Health Concerns Section Related Observation LastModified by Organization Detai ls LastModified Time None Recorded Concern Status LastModified by Organization Details LastModified Time None Recorded Advance Directives Directive None Recorded Payers Encounter Date Sequence Insurance Name Policy Number Policy Perera Covered Member ID Perera Member ID Guarantor Name 08/21/2024 1 [facility]: (PPO) [id number] Tenzin De La Cruz [id number] Ankita De La Cruz 08/21/2024 2 [facility] (MEDICAID HMO) [id number] 3 Ankita De La Cruz [id number] Ankita De La Cruz 08/27/2024 1 [facility]: (PPO) [id number] Tenzin De La Cruz [id number] Ankita De La Cruz 08/27/2024 2 [facility] (MEDICAID HMO) [id number] 3 Ankita De La Cruz [id number] Ankita De La Cruz 09/17/2024 1 [employer] [id number] Tenzinhaily De La Cruz [id number] 3 Ankita De La Cruz 09/17/2024 2 [facility] (MEDICAID O) [id number] 3 Ankita De La Cruz [id number] Ankita De La Cruz 11/19/2024 1 [employer] [id number] Tenzinhaily De La Cruz [id number] Ankita De La Cruz 11/19/2024 2 [facility] (MEDICAID HMO) [id number] 3 Ankita De La Cruz [id number] Ankita De La Cruz 11/20/2024 1 [employer] [id number] Tenzinhaily De La Cruz [id number] 3 Ankita De La Cruz 11/20/2024 2 [facility] (MEDICAID O) [id number] 3 Ankita De La Cruz [id number] Ankita De La Cruz Notes Date Note Type Note Provider Name and Address Organization Details Recorded Time 08/21/2024 text/html Beer-Pelvic PainReported bypatient.Onset/Ti sudarshan:3-6 months; intermittent episodes lasting: (hours) Duration:intermitt ent Quality:sharp; cramping Severity:severe Context:unrelated to menstrual cycle; history of hysterectomy Alleviating Factors:none Aggravating Factors:none Associated Symptoms:no abdominal pain; no back pain; no chills; no constipation; no diarrhea; no vaginal discharge; no pain with urination; normal emptying of bladder; no feelings of urgency; no blood in the urine; no sexual abuse; no ectopic pregnancies;endome triosis Nitin Candelario MD [address], [place], [address], [facility] 08/21/2024 11:00:35 09/17/2024 text/html this patient is a 29-year-old female with pelvic pain who presents for pelvic ultrasound follow-up. Patient's pain is modest. Mild to moderate. It remains stable. Pelvic ultrasound revealed a normal left ovary. The pain is on the left side. With the right ovary has a 4 cm complex cyst. There was debris within the cyst. To obtain OVA1. To follow-up in 2 months. We discussed various forms of treatment including surgery. We agreed to observation and repeat ultrasound in 2 months along with OVA1 testing. I spent over 20 minutes on the patient's care in total. Nitin Candelario MD [address], [place], [address], [facility] 09/17/2024 11:42:59 11/20/2024 text/html 29-year-old sangita ramon presents for ultrasound follow-up. Her ovarian cyst has resolved. Her symptoms have resolved. We talked about her mood disorder. We talked about her anxiety. We talked about her ovaries. She is status post hysterectomy. We talked her hormones. We talked about oophorectomy in hormone replacement. We discussed how that might stabilize her mood. Also understands that it could make it worse. And could affect desire. She is going to consider discussion. She is going to observe for symptoms. I spent over 20 minutes on her care in total. Nitin Candelario MD [address], [place], [address], [facility] 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 Assistant Status 11/14/19 23 1 CLOSED Fetus Data First Name Last Name Admitted to NICU Weight (g) Sex Living Outcome Pediatric Complications Fetus ID Race Codes Race Delivery Type 3486.76 1704 M Full Term [id number] Primary Yobani Calculation Initial Yobani Date Initial Exam Date Initial Exam Provider Initial Ultrasound Date Last Menstrual Period Date Ultra Sound Weeks Gestation 0 Eighteen To Twenty Week Yobani Update Ultra Sound Date Fundal Height At Umbil Quickening Date Ultra Sound Latest Weeks Gestation Final Yobani Confirmed By Final Yobain Confirmed Date Final Yobani Date Ultra Sound Latest Days Gestation 0 0 Menstrual History Last Menstrual Date Menses Monthly On Bcp Conception Prior Menses Frequency Hcg Plus Date Menarche Onset Age Delivery Information Delivery Date Delivery Type Labor Anesthesia Weeks Gestation Incision Type Labor Labor Length Hrs Delivered By Post Complications Tubal Sterilization Discharge Date Comments 9 40.6 Jake breech Discharge Information Feeding Method Contraceptive Method Maternal HG B and HCT Levels Ob Episode Information Episode Created Date Number of Fetuses Patient Bloodtype Patient rh Status Prepregnancy Weight lbs Domestic Partner Domestic Partner Phone Father Name Senior Court Office Assistant Status 11/14/19 23 1 CLOSED Fetus Data First Name Last Name Admitted to NICU Weight (g) Sex Living Outcome Pediatric Complications Fetus ID Race Codes Race Delivery Type 3543.46 0704 M Full Term [id number] Repeat Yobani Calculation Initial Yobani Date Initial Exam Date Initial Exam Provider Initial Ultrasound Date Last Menstrual Period Date Ultra Sound Weeks Gestation 0 Eighteen To Twenty Week Yobani Update Ultra Sound Date Fundal Height At Umbil Quickening Date Ultra Sound Latest Weeks Gestation Final Yobani Confirmed By Final Yobani Confirmed Date Final Yobani Date Ultra Sound Latest Days Gestation 0 0 Menstrual History Last Menstrual Date Menses Monthly On Bcp Conception Prior Menses Frequency Hcg Plus Date Menarche Onset Age Delivery Information Delivery Date Delivery Type Labor Anesthesia Weeks Gestation Incision Type Labor Labor Length Hrs Delivered By Post Complications Tubal Sterilization Discharge Date Comments 2 39.4 Ramses used clomid to conceive Discharge Information Feeding Method Contraceptive Method Maternal HG B and HCT Levels
--- OUTSIDE RECORDS SUMMARY | 2024-11-28 11:33 | XMS_ITS | Referral Summary ---
Author Organization [facility] Health Address [address] [place] [address] Care Team Providers Care Rn Production Name Role Phone Mary Koenig ART Primary Care Provider [phone] Source Comments [facility] Signifyd,non-owned Affiliates and Associated Physician Practices is amultiple site organization consisting of ambulatory clinics and hospital sitesin [place], [place], [place] and [place]. This disclosure is being madepursuant to the Care Everywhere program and may not contain all information available regarding this patient. Last updated 18.[facility] Allergies No known active allergies Active Problems [...] 01/26/2011 8:34 AM CDT Plan of Treatment Not on file Care Teams Rn Production Relationship Specialty Start Date End Date Mary Koenig APRN-STRIPE MATCHER [address] [place] [id number] PCP - General 08/23/22
--- OUTSIDE RECORDS SUMMARY | 2024-11-28 11:37 | XMS_ITS | Clinical Summary ---
Author Organization [facility] Address [address] [place] [address] Care Team Providers Care Allergy And Immunology Chief Name Role Phone Mary Koenig NP Primary Care Provider + [phone] Allergies No known active allergies Medications citalopram (CeleXA) 10 mg tablet take 1 tablet by oral route every day 30 13 01/24/2016 Active cyclobenzaprine (FLEXERIL) 10 mg tablet Take by mouth 3 (three) times a day as needed 02/14/2021 Active ibuprofen (ADVIL,MOTRIN) 600 mg tablet TAKE 1 TABLET BY MOUTH THREE TIMES A DAY NEEDED FOR PAIN 01/02/2021 Active traMADoL (ULTRAM) 50 mg tablet Take 1 tablet (50 mg total) by mouth every 8 (eight) hours as needed 05/01/2021 Active gabapentin (NEURONTIN) 300 mg capsule Take 1 capsule (300 mg total) by mouth nightly 90 capsule 1 08/21/2021 Active busPIRone (BUSPAR) 7.5 mg tablet Take 1 tablet (7.5 mg total) by mouth 2 (two) times a day 08/31/2024 Active sertraline (ZOLOFT) 25 mg tablet Take 1 tablet (25 mg total) by mouth daily 09/08/2024 Active Active Problems Problem Noted Date Diagnosed Date BMI 39.0-39.9,adult 08/11/2021 Sacroiliitis 02/23/2021 Chronic left-sided low back pain without sciatic a 02/23/2021 DDD (degenerative disc disease), lumbar 02/24/20 21 Dysmenorrhea 06/05/2016 Viral upper respiratory tract infection 05/06/20 16 Overview (01/16/2017): Viral upper respiratory tract infection Pharyngitis 05/06/2016 Overview (01/16/2017): Pharyngitis, unspecified etiology Chest pain 01/26/2011 Encounters Date Type Department Care Team Description 09/18/2024 10:45 AM RUBBER ROLLER GRINDER OPERATOR Ancillary Procedure [facility] Imaging at [address] [address] Acute pain of left knee 09/18/2024 10:30 AM RUBBER ROLLER GRINDER OPERATOR Office Visit [facility] Convenient Care at [address] [address] Brandee Lanier NP Acute pain of left knee (Primary Dx) from Last 3 Months Surgical History Surgery Date Site/Laterality Comments OTHER SURGICAL HISTORY 10/14/2012 - 10/13/2013 Dysmenorrhea (severe): Toradol po SECTION EXPLORATORY LAPAROTOMY Medical History Medical History Date Comments Hx Other Medical 2012 Dysmenorrhea (s evere) Hx Other Medical 2015 Type I genital HSV Personal history of urinary calculi History of renal calculi - (Added by TW Conv) Heart disease Heart problem - (Added by TW Conv) 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 with unspecified severity (HCC) Ulcer - (Added by TW Conv) Personal history of other me ntal and behavioral disorders History of anxiety - (Added by TW Conv) Personal history of other me ntal and behavioral disorders History of depression - (Add ed by TW Conv) Anxiety Depression Morbid obesity (HCC) Low back pain Endometriosis Family History Medical History Relation Name Comments Colon cancer Maternal Grandfather Colon c ancer - Relation: Grandfather (Added by TW Conv) Heart attack Maternal Grandfather Myocard ial infarction; Non-Hodgkin's Lymphoma Maternal Grandfather Non-Hodgkin's lymphoma; Diabetes Maternal Grandmother Diabete s mellitus; /Diabetes; Hypertension Maternal Grandmother Hyperte nsion; Stroke Maternal Grandmother Stroke; Diabetes type II Other 1 Family hist ory of type 2 diabetes mellitus - Relation: Grandmother (Added by TW Conv) Stroke Other 2 Family history of cerebrovascular accident (CVA) - Relation: Grandmother (Added by TW Conv) Hypertension Other 3 Family history of hypertension - Relation: Grandmother (Added by TW Conv) Breast cancer Other 4 Family history of malignant neoplasm of breast - Relation: Grandmother (Added by TW Conv) Colon cancer Paternal Grandfather Cancer, colon; Lung cancer Paternal Grandfather Cancer, lung; Pancreatic cancer Paternal Grandfather Ca ncer, pancreas; Breast cancer Paternal Grandmother Cancer , breast; Cancer Paternal Grandmother Cancer, unknown; Colon cancer Paternal Grandmother Cancer, colon; Relation Name Status Comments Maternal Grandfather Maternal Grandmother Other 1 Other 2 Other 3 Other 4 Paternal Grandfather Paternal Grandmother Social History Tobacco Use Types Packs/Day Years Used Date Smoking Tobacco: Never Smokeless Tobacco: Never Alcohol Use Standard Drinks/Week Comments No 0 (1 standard drink = 0.6 oz pur e alcohol) AUDIT-C Answer Date Recorded Q1: How often do you have a drink containing alc ohol? Never 08/11/2021 Average Number of Drinks Not on file 021 Frequency of Binge Drinking Not on file 07/15 PHQ-2 Answer Date Recorded PHQ-2 Total Score (If total score is 3 or more points, staff should administer the PHQ-9) 1 02/23/2021 Comments No Sex and Gender Information Value Date Recorded Sex Assigned at Not on file Legal Sex Female 9:38 AM RUBBER ROLLER GRINDER OPERATOR Gender Identity Female 08/07/2021 10:07 AM CDT Sexual Orientation Not on file Obstetrics History Last Filed Vital Signs Vital Sign Reading Time Taken Comments Blood Pressure 111/77 09/18/2024 10:38 AM RUBBER ROLLER GRINDER OPERATOR Pulse 88 09/18/2024 10:38 AM RUBBER ROLLER GRINDER OPERATOR Temperature 36.9 C (98.4 F) 09/18/2024 10:38 AM RUBBER ROLLER GRINDER OPERATOR Respiratory Rate 20 09/18/2024 10:38 AM RUBBER ROLLER GRINDER OPERATOR Oxygen Saturation 99% 09/18/2024 10:38 AM RUBBER ROLLER GRINDER OPERATOR Inhaled Oxygen Concentration - - Weight 69.9 kg (154 lb 3.2 oz) 09/18/2024 10:38 AM RUBBER ROLLER GRINDER OPERATOR Height 167.6 cm (5' 6 ) 09/18/2024 10:38 AM RUBBER ROLLER GRINDER OPERATOR Body Mass Index 24.89 09/18/2024 10:38 AM RUBBER ROLLER GRINDER OPERATOR Plan of Treatment Health Maintenance Due Date Last Done Comments Cervical Cancer Screening 1997 Hepatitis C Screening 1997 DTaP/Tdap/Td Vaccine (1 - Tdap) 2008 Varicella Vaccines (1 of 2 - 13+ 2-dose series) 2010 Hepatitis B Screening 2015 Regular Well Visit/Exam 18-64 2015 Depression Screening 02/23/2022 02/23/2021, 02/23/2021 Influenza Vaccine (#1) 2024 0, 07/08/2019 HPV Vaccines Aged Out No longer eligi ble based on patient's age to complete this topic Pneumococcal vaccine <65 Aged Out No longer eligible based on patient's age to complete this topic Goals Goal Patient Goal Type Associated Problems Recent Progress Patient-Stated? Author [facility] Rosina Guthrie, RN Note: Hold son for extended period of time, exercise with minimal to no pain. Procedures Procedure Name Priority Date/Time Associated Diagnosis Comments XR KNEE LEFT 3 VIEWS Schedule TATIANA, Read TATIANA (Appt Today, Awaiting Results) 09/18/2024 10:47 AM RUBBER ROLLER GRINDER OPERATOR Acute pain of left knee from Last 3 Months Results * XR Knee Left 3 Vw (09/18/2024 10:47 AM RUBBER ROLLER GRINDER OPERATOR) Anatomical Region Laterality Modality Lower Extremities, Knee Left Digital Radiography 09/18/2024 1:44 PM RUBBER ROLLER GRINDER OPERATOR Narrative 09/18/2024 1:46 PM RUBBER ROLLER GRINDER OPERATOR EXAM DESCRIPTION: XR KNEE LEFT 3 VIEWS REASON FOR STUDY: pain Pt complains of left medial knee pain after injuring it while wrestling with her x 1 week ago. No prior fx or surgery. TECHNIQUE: There are 3 radiographic view(s) of the left knee . COMPARISON: No prior. FINDINGS: Normal mineralization. No acute fracture or dislocation. Joint spaces are intact. No effusion. IMPRESSION: No acute osseous abnormality. THIS IS AN ELECTRONICALLY VERIFIED FINAL REPORT 09/18/2024 1:46 PM - Electronically signed by Ramses Fuentes M.D. MJ T: Report ID: [id number] Reading Location: [id number] Procedure Note Ramses Fuentes MD - 09/18/2024 EXAM DESCRIPTION: XR KNEE LEFT 3 VIEWS REASON FOR STUDY: pain Pt complains of left medial knee pain after injuring it while wrestlingwith her x 1 week ago. No prior fx or surgery. TECHNIQUE: There are 3 radiographic view(s) of the left knee . COMPARISON: No prior. FINDINGS: Normal mineralization. No acute fracture or dislocation. Joint spaces are intact. No effusion. IMPRESSION: No acute osseous abnormality. THIS IS AN ELECTRONICALLY VERIFIED FINAL REPORT 09/18/2024 1:46 PM - Electronically signed by Ramses Feuntes M.D. T: Report ID: [id number] Reading Location: [id number] Brandee Lanier COLOR CORRECTOR IMG XR PROCEDURES Final Result from Last 3 Months Insurance [facility] Quality Practice [facility] Address: [facility] [id number] [place] [address] Care Teams Allergy And Immunology Chief Relationship Specialty Start Date End Date Arya, Mary Pike NP [address] [place] [address] PCP - General 12/14/20
--- OUTSIDE RECORDS SUMMARY | 2024-11-28 11:37 | XMS_ITS | Referral Summary ---
Author Organization [facility] Address [address] [place] [address] Care Team Providers Care Professor Of Chemistry Name Role Phone Mary Koenig NP Primary Care Provider Encounters Date Type Department Care Team Description 09/18/2024 10:45 AM ORDER PULLER Ancillary Procedure [facility] Imaging at [address] [address] Acute pain of left knee 09/18/2024 10:30 AM ORDER PULLER Office Visit [facility] Convenient Care at [address] [address] Brandee Lanier NP Acute pain of left knee (Primary Dx) from Last 3 Months Allergies No known active allergies Medications citalopram [...] (01/16/2017): Pharyngitis, unspecified etiology Chest pain 01/26/2011 Social History Tobacco Use [...] on file Legal Sex Female 9:38 AM ORDER PULLER Gender Identity Female 08/07/2021 10:07 AM CDT Sexual Orientation Not on file Last Filed Vital Signs Vital Sign Reading Time Taken Comments Blood Pressure 111/77 09/18/2024 10:38 AM ORDER PULLER Pulse 88 09/18/2024 10:38 AM ORDER PULLER Temperature 36.9 C (98.4 F) 09/18/2024 10:38 AM ORDER PULLER Respiratory Rate 20 09/18/2024 10:38 AM ORDER PULLER Oxygen Saturation 99% 09/18/2024 10:38 AM ORDER PULLER Inhaled Oxygen Concentration - - Weight 69.9 kg (154 lb 3.2 oz) 09/18/2024 10:38 AM ORDER PULLER Height 167.6 cm (5' 6 ) 09/18/2024 10:38 AM ORDER PULLER Body Mass Index 24.89 09/18/2024 10:38 AM ORDER PULLER Plan of Treatment Not on file Goals Goal Patient Goal Type Associated Problems Recent Progress Patient-Stated? Author [facility] No Rosina Cormier, RN Note: Hold son for extended period of time, exercise with minimal to no pain. Procedures Procedure Name Priority Date/Time Associated Diagnosis Comments XR KNEE LEFT 3 VIEWS Schedule TATIANA, Read TATIANA (Appt Today, Awaiting Results) 09/18/2024 10:47 AM ORDER PULLER Acute pain of left knee from Last 3 Months Results * XR Knee Left 3 Vw (09/18/2024 10:47 AM ORDER PULLER) Anatomical Region Laterality Modality Lower Extremities, Knee Left Digital Radiography 09/18/2024 1:44 PM ORDER PULLER Narrative 09/18/2024 1:46 PM ORDER PULLER EXAM DESCRIPTION: XR KNEE LEFT 3 VIEWS [...] 1:46 PM - Electronically signed by Ramses PARIKH T: Report ID: [id number] Reading Location: [id number] Procedure Note Ramses Fuentes MD - 09/18/2024 [...] Ramses Fuentes M.D. MJ T: Report ID: [id number] Reading Location: [place] [address] Brandee Lanier NURSING STUDENT IMG XR PROCEDURES Final Result from Last 3 Months Insurance [employer] [facility] [employer] Care Teams Professor Of Chemistry Relationship Specialty Start Date End Date Koenig, Mary Pike NP [address] [place] [address] PCP - General 12/14/20
[2024-11-28 11:40] VITALS: BP 101/69; PULSE 110; RESP 20; TEMP 36.7; O2SAT 100
--- NOTE | 2024-11-28 13:34 | ED_ITS ---
HPI - General Adult General Chief complaint: Eye Problems Stated complaint: lt eye swollen Source: patient Mode of arrival: ambulatory Limitations: no limitations History of Present Illness HPI narrative: Patient presents for evaluation of pain, swelling and redness to the left upper eyelid. Three days ago she attempted to block a hair out of her left eyebrow. She noticed some swelling in the affected area which has since worsened. She denies any visual disturbance. No pain with eye movements. No fever, chills, nausea, vomiting, drainage from the affected area. She is not diabetic. She does vape. She does not were glasses or contacts. Related Data Home Medications ?Medication ?Instructions ?Recorded ?Confirmed ?Last Taken ?Type sertraline 100 mg tablet 100 mg PO DAILY 04/16/23 04/16/23 Unknown History aripiprazole 5 mg tablet mg 11/28/24 Unknown History buspirone 7.5 mg tablet mg 11/28/24 Unknown History cyclobenzaprine 10 mg tablet mg 11/28/24 Unknown History gabapentin 300 mg capsule mg 11/28/24 Unknown History hydroxyzine pamoate 25 mg capsule mg 11/28/24 Unknown History propranolol 10 mg tablet mg 11/28/24 Unknown History Allergies Allergy/AdvReac Type Severity Reaction Status Date / Time No Known Allergies Allergy Unknown Verified 11/28/24 12:51 Review of Systems Review of Systems: CONSTITUTIONAL: Denies fever, chills, or sweats. EYES: Denies visual changes, redness, or discharge. ENT: Denies rhinorrhea, congestion, sore throat, or otalgia. CARDIOVASCULAR: Denies chest pain, palpitations, or edema. RESPIRATORY: Denies cough or dyspnea. GASTROINTESTINAL: Denies abdominal pain, nausea, vomiting, or diarrhea. GENITOURINARY: Denies dysuria or hematuria. SKIN: Reports pain, redness and swelling in the left upper eyelid MUSCULOSKELETAL: Denies back pain, joint pain, or myalgia. NEUROLOGIC: Denies headache, numbness, dizziness, or weakness. PSYCHIATRIC: Denies anxiety or depression. [facility] Past Medical History Medical History Anxiety Headache, migraine Depression Surgical History Surgical History Hx of laparoscopy removal of ovarian cyst, endometriosis H/O section Family History Family History Grandparent Diabetes mellitus Non-Hodgkin lymphoma Dementia Cerebrovascular accident Mother Breast cancer Depression Father Alcohol abuse Bipolar affective disorder Grandparent Breast cancer Brain cancer Carcinoma of colon Grandparent Carcinoma of colon Social History Social History Smoking status: Current every day smoker Tobacco type: e-cigarettes/vaping Alcohol intake: never Alcohol use details: twice a year Substance use: never Substance use type: does not use Living arrangements: with family Gender identity (if verbalized by the patient): Female Spiritual care concerns: No Exam Narrative: GENERAL: Well-appearing, well-nourished, and in no acute distress. HEAD: Normocephalic, atraumatic. EYES: PERRLA and EOMI. No chemosis ENT: Nares clear, no rhinorrhea or epistaxis. Mucous membranes moist. Oropharynx without tonsillar hypertrophy exudate or other lesions. Bilateral TMs pearly loera nonbulging NECK: Supple. No adenopathy or masses. No carotid bruits or JVD CHEST: Clear to auscultation. No respiratory distress. No wheezes rales or rhonchi HEART: Regular rate and rhythm. No murmur heard. Normal peripheral pulses. ABDOMEN: Soft, nontender, nondistended, normal active bowel sounds. EXTREMITIES: Normal range of motion. No edema. SKIN: There is erythema to the left upper eyelid. There is a 2 mm area of scabbed drainage noted just inferior to left eyebrow. There is swelling noted to left upper eyelid. There is no underlying fluctuance. NEURO: No focal deficits. Alert and oriented x3. PSYCH: Normal mood and affect. Course Course Emergency Course: This is a 29-year-old female who presented for evaluation of redness, swelling, pain to the left upper eyelid. She has no pain with eye movements or chemosis to suggest orbital cellulitis. This is a periorbital cellulitis which will be managed with Bactrim and cefdinir. She can take ibuprofen for swelling. She was advised not to manipulate the affected area. She has no underlying fluctuance to suggest drainable fluid collection. She should take serial follows with her phone in the same landing to assess progress and if this is worsening on oral antibiotics go to the emergency department. Otherwise she can follow-up outpatient. Patient is in agreement with plan of care. Level of Care: Express Care Visit Vital Signs Vital signs: Vital Signs Temperature 36.7 C 11/28/24 11:40 Pulse Rate 110 H 11/28/24 11:40 Respiratory Rate 20 11/28/24 11:40 Blood Pressure 101/69 11/28/24 11:40 Pulse Oximetry 100 11/28/24 11:40 Oxygen Delivery Room Air 11/28/24 11:40 Temperature 36.7 C 11/28/24 11:40 Pulse Rate 110 H 11/28/24 11:40 Respiratory Rate 20 11/28/24 11:40 Blood Pressure 101/69 11/28/24 11:40 Pulse Oximetry 100 11/28/24 11:40 Oxygen Delivery Room Air 11/28/24 11:40 Medical Decision Making Vital Signs Vital Signs: Vital Signs Temperature 36.7 C 11/28/24 11:40 Pulse Rate 110 H 11/28/24 11:40 Respiratory Rate 11/28/24 11:40 Blood Pressure 101/69 11/28/24 11:40 Pulse Oximetry 100 11/28/24 11:40 Oxygen Delivery Room Air 11/28/24 11:40 Temperature 36.7 C 11/28/24 11:40 Pulse Rate 110 H 11/28/24 11:40 Respiratory Rate 11/28/24 11:40 Blood Pressure 101/69 11/28/24 11:40 Pulse Oximetry 100 11/28/24 11:40 Oxygen Delivery Room Air 11/28/24 11:40 Discharge Plan Discharge Clinical Impression: Preseptal cellulitis of left eye Patient Disposition: Home, Self-Care Condition: Stable Instructions: Antibiotic Form, Periorbital Cellulitis (ED) Patient Language: Albanian Prescriptions: New cefdinir 300 mg capsule 300 mg PO Q12H Qty: 20 0RF sulfamethoxazole-trimethoprim [Bactrim DS] 800-160 mg tablet 1 tablet PO Q12H Qty: 20 0RF ibuprofen 800 mg tablet 800 mg PO TID PRN (Reason: pain) Qty: 30 0RF No Action cyclobenzaprine 10 mg tablet propranolol 10 mg tablet gabapentin 300 mg capsule buspirone 7.5 mg tablet hydroxyzine pamoate 25 mg capsule aripiprazole 5 mg tablet sertraline 100 mg tablet 100 mg PO DAILY Follow-up/Referrals: Koenig,Mary Jeffries APN [Primary Care Provider] - Time of Disposition: 13:33
== END 2024-11-28 13:35 | disposition home or self-care (01) ==
PROVIDERS: Emergency Provider Nurse Practitioner; PCP Nurse Practitioner Family
DX: L03.213 Periorbital cellulitis (principal); F17.290 Nicotine dependence, other tobacco product, uncomplicated; F41.9 Anxiety disorder, unspecified; F32.A Depression, unspecified
CPT/HCPCS: 99213; G0463

== ENCOUNTER 2025-01-19 09:12 | Emergency (ER) | payer BC, OTHER, SELFPAY ==
[2025-01-19 09:18] VITALS: BP 108/71; PULSE 113; RESP 16; TEMP 37.1; O2SAT 98
--- NOTE | 2025-01-19 09:35 | ED_ITS ---
HPI - URI/Sore Throat General Chief Complaint: Upper Respiratory Infection Stated Complaint: Sore Throat/Left Ear Pain Time Seen by Provider: 01/19/25 09:40 Source: patient and RN notes reviewed Mode of arrival: ambulatory Limitations: no limitations History of Present Illness HPI Narrative: 29-year-old female presents concern for 2 day history of sore throat left ear pain. She reports she has been taking Sudafed. She denies fever, body aches, chills, sweats. Denies drainage from the ear. MD elicited complaint: sore throat Related Data Home Medications ?Medication ?Instructions ?Recorded ?Confirmed ?Last Taken ?Type sertraline 100 mg tablet 100 mg PO DAILY 04/16/23 04/16/23 Unknown History aripiprazole 5 mg tablet mg 11/28/24 Unknown History buspirone 7.5 mg tablet mg 11/28/24 Unknown History cyclobenzaprine 10 mg tablet mg 11/28/24 Unknown History gabapentin 300 mg capsule mg 11/28/24 Unknown History hydroxyzine pamoate 25 mg capsule mg 11/28/24 Unknown History propranolol 10 mg tablet mg 11/28/24 Unknown History Allergies Allergy/AdvReac Type Severity Reaction Status Date / Time No Known Allergies Allergy Unknown Verified 11/28/24 12:51 Review of Systems Review of Systems: CONSTITUTIONAL: Denies malaise, chills, sweats, or fever. EYES: Denies visual changes, redness, or discharge. ENT: Denies rhinorrhea, congestion, sinus pain. Reports otalgia and sore throa t. CARDIOVASCULAR: Denies chest pain, palpitations, or edema. RESPIRATORY: Denies cough. Denies dyspnea. GASTROINTESTINAL: Denies abdominal pain, nausea, vomiting, diarrhea SKIN: Denies rash or itching. MUSCULOSKELETAL: Denies myalgia. NEUROLOGIC: Denies headache. All systems reviewed & are unremarkable except as noted in HPI and below PMFSH Past Medical History Medical History Anxiety Headache, migraine Depression Surgical History Surgical History Hx of laparoscopy removal of ovarian cyst, endometriosis H/O section Family History Family History Grandparent Diabetes mellitus Non-Hodgkin lymphoma Dementia Cerebrovascular accident Mother Breast cancer Depression Father Alcohol abuse Bipolar affective disorder Grandparent Breast cancer Brain cancer Carcinoma of colon Grandparent Carcinoma of colon Social History Social History Smoking status: Current every day smoker Tobacco type: e-cigarettes/vaping Alcohol intake: never Alcohol use details: twice a year Substance use: never Substance use type: does not use Living arrangements: with family Gender identity (if verbalized by the patient): Female Spiritual care concerns: No Comments At time of signature, agree with nursing past medical, surgical, social and family history. There is no relevant family history pertinent to the presenting complaint Exam Narrative: GENERAL: Well-appearing, well-nourished, and in no acute distress. HEAD: Normocephalic EYES: PERRLA, conjunctivae clear ENT: Nares clear. Mucous membranes moist. TM pearly loera with sharp light reflex bilaterally; no tragal tenderness. Oropharynx not erythematous without lesions. Tonsils not enlarged and without exudate, no drooling, no hoarseness, no trismus, uvula midline. NECK: Supple. No lymphadenopathy CHEST: Clear to auscultation, breath sounds equal. No wheezing, rhonchi, rales, or stridor. No respiratory distress, speaks in full sentences. HEART: Regular rate and rhythm. No murmur heard. SKIN: Warm, dry, no rash. NEURO: Alert and oriented x3. PSYCH: Normal mood and affect Course Course Emergency Course: Patient is aware of diagnosis, understands and agrees to treatment plan. Anticipatory guidance given. Patient agrees to follow-up as directed and is aware of reasons to seek care at the emergency department. Portions of this record may have been created with voice recognition software Level of Care: Express Care Visit Vital Signs Vital signs: Vital Signs Temperature 98.7 F 01/19/25 09:18 Pulse Rate 113 H 01/19/25 09:18 Respiratory Rate 16 01/19/25 09:18 Blood Pressure 108/71 01/19/25 09:18 Pulse Oximetry 98 01/19/25 09:18 Oxygen Delivery Room Air 01/19/25 09:18 Temperature 98.7 F 01/19/25 09:18 Pulse Rate 113 H 01/19/25 09:18 Respiratory Rate 16 01/19/25 09:18 Blood Pressure 108/71 01/19/25 09:18 Pulse Oximetry 98 01/19/25 09:18 Oxygen Delivery Room Air 01/19/25 09:18 Reviewed. MDM - URI/Sore Throat MDM Narrative Medical decision making narrative: Differential diagnosis considered: Cavazos virus, strep pharyngitis, allergic rhinitis, upper respiratory tract infection, sinusitis, rhinosinusitis, nasopharyngitis. viral pharyngitis, otitis media, otitis externa, pneumonia, bronchitis, viral cough syndrome, viral syndrome, and influenza. Exam findings show no acute concerns or changes; patient is non-toxic appearing and is in no distress. Patient is appropriate for outpatient treatment and follow-up. Lab Data Attestation: I reviewed the patient's lab results. Critical Care Time Critical Care Time Critical Care Time: No Discharge Plan Discharge Clinical Impression: Upper respiratory infection Patient Disposition: Home Condition: Stable Instructions: Upper Respiratory Infection (ED) Additional Instructions: Your rapid strep swab was negative today at [facility]. A throat culture will be sent to the laboratory for further testing. If the test is positive, you will receive a phone call within 48 hours and an appropriate antibiotic will be initiated at that time. Your symptoms are likely due to a viral illness, which is not treated with antibiotics. Viral symptoms can be present for up to a few weeks. -Alternate Tylenol and Motrin per package directions for fever or pain. -Antihistamine medication such as Benadryl at night and Zyrtec during the day can help improve symptoms. -Eat and drink things that are easy to swallow, like tea or soup, or popsicles to suck on. -Oral rinses such as: Salt water gargles and/or may use topical anesthetic (eg. Chloraseptic spray) or lozenges to relieve dryness or throat pain). -Frequent hand washing or hand health analytics consultant is one of the best ways to prevent spread of infection. -Follow up with primary care provider in 2-3 days if condition is not improving; or seek ER visit if you have trouble breathing, cannot drink enough fluids, have muffled voice, difficulty opening your mouth, or severe swelling. Patient Language: Jordanian Prescriptions: New methylprednisolone [Medrol (Arie)] 4 mg tablets,dose pack See Rx Instructions .ROUTE .COMPLEX Qty: 21 0RF Rx Instructions: orally per package directions No Action cyclobenzaprine 10 mg tablet propranolol 10 mg tablet gabapentin 300 mg capsule buspirone 7.5 mg tablet hydroxyzine pamoate 25 mg capsule aripiprazole 5 mg tablet ibuprofen 800 mg tablet 800 mg PO TID PRN (Reason: pain) Qty: 30 0RF sertraline 100 mg tablet 100 mg PO DAILY Follow-up/Referrals: Koenig,Mary Jeffries APN [Primary Care Provider] - Time of Disposition: 09:44
[2025-01-19 09:37] LABS: EDSTREPNEGPOS1 Negative (Negative)
--- OUTSIDE RECORDS SUMMARY | 2025-01-19 09:54 | XMS_ITS | Clinical Summary ---
Author Organization [facility] Address [address] [facility], [place] [address] Phone Care Team Providers Care Sweeper Operator Highways Name Role Phone Arya Mary BENDER CNP Primary Care Provider [phone] Allergies No known active allergies Medications triamcinolone (KENALOG) 0.1 % Cream Apply 2 times daily. Active HYDROcodone-acet aminophen (NORCO) 5-325 MG TabletIndication s:Abscess of eyebrow Take 1 Tablet by mouth every 8 hours as needed for Severe pain. 12 Tablet 11/30/2024 Active Encounters Date Type Department Care Team Description 11/30/2024 10:08 PM PATIENT PLACEMENT COORDINATOR - 11/30/2024 10:50 PM [facility] Emergency [facility] Emergency [address] [place] [id number] Franklin Daniel PAC Abscess of eyebrow Discharge Disposition: Discharged to home or Selfcare 11/30/2024 Travel from Last 3 Months Family History Medical History Relation Name Comments [...] Sign Reading Time Taken Comments Blood Pressure 118/67 11/30/2024 10:45 PM PATIENT PLACEMENT COORDINATOR Pulse 93 11/30/2024 10:45 PM PATIENT PLACEMENT COORDINATOR Temperature 36.7 C (98.1 F) 11/30/2024 10:03 PM PATIENT PLACEMENT COORDINATOR Respiratory Rate 17 11/30/2024 10:45 PM PATIENT PLACEMENT COORDINATOR Oxygen Saturation 100% 11/30/2024 10:45 PM PATIENT PLACEMENT COORDINATOR Inhaled Oxygen Concentration - - Weight 68 kg (150 lb) 11/30/2024 10:03 PM PATIENT PLACEMENT COORDINATOR Height 167.6 cm (5' 6 ) 11/30/2024 10:03 PM PATIENT PLACEMENT COORDINATOR Body Mass Index 24.21 11/30/2024 10:03 PM PATIENT PLACEMENT COORDINATOR Plan of Treatment Health Maintenance Due Date [...] on patient's age to complete this topic Procedures Procedure Name Priority Date/Time Associated Diagnosis Comments INCISION AND DRAINAGE Routine 11/30/2024 10:15 PM PATIENT PLACEMENT COORDINATOR from Last 3 Months Results * Incision and Drainage (11/30/2024 10:15 PM PATIENT PLACEMENT COORDINATOR) Narrative Jama Mayberry MD - 11/30/2024 10:15 PM PATIENT PLACEMENT COORDINATOR Jama Mayberry MD 12/01/2024 5:33 AM Incision and Drainage Performed by: Franklin Daniel PAC Authorized by: María, Franklin Ramses, PAC Consent: Consent obtained: Verbal and written Consent given by: Patient Risks, benefits, and alternatives were discussed: yes Risks discussed: Bleeding, incomplete drainage, pain and infection Alternatives discussed: Alternative treatment [place] protocol: Procedure explained and questions answered to patient or proxy's satisfaction: yes Relevant documents present and verified: yes Test results available : yes Imaging studies available: no Required blood products, implants, devices, and special equipment available: yes Site/side marked: yes Immediately prior to procedure, a time out was called: yes Patient identity confirmed: Verbally with patient, hospital-assigned identification number and arm band Location: Type: Abscess Size: 1cm Location: Head Head/neck location: left eyebrow. Pre-procedure details: Skin preparation: Chlorhexidine with alcohol Sedation: Sedation type: None Anesthesia: Anesthesia method: Local infiltration Local anesthetic: Lidocaine 1% w/o epi Procedure type: Complexity: Simple Procedure details: Needle aspiration: yes Needle size: 20 G Drainage: Purulent Drainage amount: Scant Wound treatment: Wound left open Post-procedure details: Procedure completion: Tolerated well, no immediate complications Franklin Daniel PAC PROCEDURE/MINOR SURG ICAL ORDERABLES Final Result from Last 3 Months Insurance MEDICAID [place] [[email or web address] Member Subscriber Plan / Payer (Ef fective 2013-Present) Name:Ankita De La Cruz Relation to Subscriber:Spouse Name:TENZIN DE LA CRUZ Date of :1907 (Home) Address: [address] [place] [address] Payer ID:[id number] Type:PPO Address: [facility] [id number] [place] [id number] Care Teams Sweeper Operator Highways Relationship Specialty Start Date End Date Mary Koenig APRN, LOUIE [address] [place] [address] PCP - General Family Medicine 04/29/20
--- OUTSIDE RECORDS SUMMARY | 2025-01-19 09:54 | XMS_ITS | Data Portability ---
Author Organization [place] [facility] autoContract - [facility] [place] Address [address] [place] [address] Assessment Encounter Date Assessment Date Assessment LastModified [...] not constitute a prescription for medical cannabis. [email or web address] Not available 11/20/2022 16:00:49 Plan of Treatment [...] By Organization Details Last Modified Time 11/16/2022 [id number] I have discussed the risks and benefits [...] questions. [email or web address] Not available 11/16/2022 15:03:22 11/20/2022 [id number] I have discussed the risks and benefits [...] SNOMED-CT Code Diagnosis ICD10 Code Diagnosis Note [id number] Christi Kurtz MD [facility] [place] [address] 11/16/2022 15:00:32 11/16/2022 15:47:18 Spinal cord disease 95496204 G95.9 [id number] Snow Zhang NP [facility] [address] [place] [address] 11/20/2022 15:29:41 11/20/2022 16:04:54 Spinal cord disease 67589857 G95.9 Health Concerns Section Related Observation LastModified by Organization Detai ls LastModified Time None Recorded Concern Status LastModified by Organization Details LastModified Time None Recorded Advance Directives Directive None Recorded Payers Encounter Date Sequence Insurance Name Policy Number Policy Perera Covered Member ID Perera Member ID Guarantor Name 11/16/2022 1 [facility]: [facility] (PPO) [id number] Tenzin De La Cruz [id number] Ankita De La Cruz 11/20/2022 1 [facility]: [facility] (PPO) [id number] Tenzin De La Cruz [id number] Ankita De La Cruz Notes Date [...] Kurtz MD [address], [place], [address], [facility] 11/16/2022 15:03:45 11/20/2022 [...] Zhang NP [address], [place], [address], [facility] 11/20/2022 16:01:11 OBGyn Episode No OBEpisode recorded.
--- OUTSIDE RECORDS SUMMARY | 2025-01-19 09:54 | XMS_ITS | Clinical Summary ---
Author Organization [facility] Address [address] [place] [address] Care Team Providers Care Senior Principal Name Role Phone Mary Koenig NP Primary Care Provider [phone] Allergies No known active allergies Medications citalopram (CeleXA) 10 mg tablet take 1 tablet by oral route every day 30 13 6 Active Additional Information Patient not taking.Reported on 11/30/2024 cyclobenzaprine (FLEXERIL) 10 mg tablet Take by mouth 3 (three) times a day as needed 1 Active ibuprofen (ADVIL,MOTRIN) 600 mg tablet TAKE 1 TABLET BY MOUTH THREE TIMES A DAY NEEDED FOR PAIN 1 Active traMADoL (ULTRAM) 50 mg tablet Take 1 tablet (50 mg total) by mouth every 8 (eight) hours as needed 1 Active gabapentin (NEURONTIN) 300 mg capsule Take 1 capsule (300 mg total) by mouth nightly 90 capsule 1 1 Active Additional Information Patient not taking.Reported on 11/30/2024 busPIRone (BUSPAR) 7.5 mg tablet Take 1 tablet (7.5 mg total) by mouth 2 (two) times a day 4 Active sertraline (ZOLOFT) 25 mg tablet Take 1 tablet (25 mg total) by mouth daily 4 Active ARIPiprazole (ABILIFY) 5 mg tablet TAKE 1 TABLET BY MOUTH EVERY DAY FOR 30 DAYS 5 Active ferrous sulfate 325 mg (65 mg of elemental iron) tablet Take 1 tablet (325 mg total) by mouth daily Active HYDROcodone-tatyana taminophen (NORCO) 5-325 mg per tablet TAKE 1 TABLET BY MOUTH EVERY 8 HOURS NEEDED FOR MODERATE OR MORE SEVERE PAIN 3 Active hydrOXYzine (VISTARIL) 25 mg capsule TAKE 1 CAPSULE 3 TIMES A DAY BY ORAL ROUTE NEEDED FOR 90 DAYS, FOR BREAKTHROUGH ANXIETY. 5 Active ondansetron (ZOFRAN) 4 mg tablet TAKE 1 TAB BY MOUTH EVERY 8 HOURS NEEDED Active propranoloL (INDERAL) 10 mg tablet TAKE 1 TABLET EVERY DAY BY ORAL ROUTE NEEDED FOR 30 DAYS, FOR BREAKTHROUGH ANXIETY. 5 Active sertraline (ZOLOFT) 100 mg tablet Take 1 tablet (100 mg total) by mouth daily 4 Active Active Problems Problem Noted Date Diagnosed Date BMI 39.0-39.9,adult 08/11/2021 Sacroiliitis 02/23/2021 Chronic left-sided low back pain without sciatic a 02/23/2021 DDD (degenerative disc disease), lumbar 02/24/20 21 Dysmenorrhea 06/05/2016 Viral upper respiratory tract infection 05/06/20 16 Overview (01/16/2017): Viral upper respiratory tract infection Pharyngitis 05/06/2016 Overview (01/16/2017): Pharyngitis, unspecified etiology Chest pain 01/26/2011 Encounters Date Type Department Care Team Description 11/30/2024 7:30 PM BONDING AND COMPOSITE FABRICATOR Office Visit [facility] [address] [place] [address] Marcela Sherman, CHERIE Abscess of left upper eyelid (Primary Dx) from Last 3 Months Surgical [...] on file Legal Sex Female 9:38 AM BONDING AND COMPOSITE FABRICATOR Gender Identity Female 08/07/2021 10:07 AM CDT Sexual Orientation Not on file Obstetrics History Last Filed Vital Signs Vital Sign Reading Time Taken Comments Blood Pressure 104/68 11/30/2024 7:36 PM BONDING AND COMPOSITE FABRICATOR Pulse 88 11/30/2024 7:36 PM BONDING AND COMPOSITE FABRICATOR Temperature 36.4 C (97.5 F) 11/30/2024 7:36 PM BONDING AND COMPOSITE FABRICATOR Respiratory Rate 16 11/30/2024 7:36 PM BONDING AND COMPOSITE FABRICATOR Oxygen Saturation 99% 11/30/2024 7:36 PM BONDING AND COMPOSITE FABRICATOR Inhaled Oxygen Concentration - - Weight 69.4 kg (153 lb) 11/30/2024 7:36 PM BONDING AND COMPOSITE FABRICATOR Height 167.6 cm (5' 6 ) 11/30/2024 7:36 PM BONDING AND COMPOSITE FABRICATOR Body Mass Index 24.69 11/30/2024 7:36 PM BONDING AND COMPOSITE FABRICATOR Plan of Treatment Health Maintenance Due Date Last Done Comments Hepatitis C Screening 1997 DTaP/Tdap/Td Vaccine (1 - Tdap) 2008 Varicella Vaccines (1 of 2 - 13+ 2-dose series) 2010 Hepatitis B Screening 2015 Regular Well Visit/Exam 18-64 2015 Depression Screening 02/23/2022 02/23/2021, 02/23/2021 Influenza Vaccine (#1) 2024 , 07/08/2019 HPV Vaccines Aged Out No longer [...] time, exercise with minimal to no pain. Insurance [employer] [employer] O Care Teams Senior Principal Relationship Specialty Start Date End Date Mary Koenig NP [address] [place] [address] PCP - General 12/14/20
--- OUTSIDE RECORDS SUMMARY | 2025-01-19 09:54 | XMS_ITS | Data Portability ---
Author Organization [facility] [place] Address [address] [place] [address] Care Team Providers Care Manuscripts Archivist Name Role Phone TIRADO, RUFINO Primary Care Provider [phone] Assessment Encounter Date Assessment Date Assessment LastModified [...] performed today. We spent over 25 minutes djay-zz-evyi. The patient was given precautions. She will [...] recorded. Lab dhea-sulfat e, serum 2024 025 [facility] (Lab), [address] [place], [address], 17:05:01 estradiol, serum 2024 025 [facility] (Lab), [address] [place], [address], 5 17:05:03 FSH (follicle-s timulating hormone), serum 2024 025 [facility] (Lab), [address], [place], [address], 5 17:05:04 HbA1c (hemoglobin A1c), blood 2024 025 [facility] (Lab), [address] [place], [address], 5 17:05:05 lh (luteinizin g hormone), serum 2024 025 [facility] (Lab), [address], [place], [address], 5 17:05:03 progesteron e, serum 2024 025 [facility] (Lab), [address] [place], [address], 5 17:05:02 prolactin, serum 2024 025 [facility] (Lab), [address] [place], [address], 5 17:05:02 shbg (sex hormone-bin ding globulin), serum 2024 025 [facility] (Lab), [address] [place], [address], 5 17:05:05 TSH, serum or plasma 2024 025 [facility] (Lab), [address] [place], [address], 5 17:05:05 testosteron e free/testos terone total, ratio, serum 2024 025 [facility] (Lab), [address], [place], [address], 5 17:05:06 ova1, serum 2023 024 IGORGI [facility] (Lab), [address] [facility], [place], [address], 4 10:48:38 Referral None recorded. Procedures None recorded. Surgeries None recorded. Imaging US, transvagina l 2024 [address], [address], [place], [address], 5 19:35:34 US, pelvis 2023 [address], [address], [place], [address], 4 14:34:30 US, transvagina l 2023 [address], [address], [place], [address], 4 14:34:30 Medication Orders None recorded. Patient TargetsNo targets recorded. Patient InstructionsNo instructions recorded. Reason for Referral None Reported. Results Created Date Observation Date Name Description Value Unit Range Abnormal Flag Note LastModifiedBy Organization Detail LastModifiedTime 09/17/20 24 09/17/2024 OVA 1 scan result See Scanne d Result Not Available [facility] (Lab) [address], [place], [address], 09/22/2024 10:48:38 11/20/19 25 11/20/2024 DHEA SULFA TE DHEA-sulfate 99 ug/dL Femal e Range s Age(y ) Range (ug/d L) 10-15 34-28 0 15-20 65-36 8 20-25 148-4 07 25-35 99-34 0 35-45 61-33 7 45-55 35-25 6 55-65 19-20 5 65-75 9-246 > 75 12-15 4 Not Available [facility] (Lab) [address] [facility], [place], [address], 11/29/2024 17:05:01 11/20/19 25 11/20/2024 PROLA CTIN prolactin, total 8.22 NG/mL 4.79-2 3.30 This assay was perfo rmed using [employer] ratio n reage nts and test kits. Value s obtai jia with other assay metho ds or kits canno t be used inter [facility] . Not Available [facility] (Lab) [address] [facility], [place], [address], 11/29/2024 17:05:02 11/20/19 25 11/20/2024 PROGE STERO NE progesterone 2.43 NG/mL This assay was perfo rmed using [employer] ratio n reage nts and test kits. Value s obtai jia with other assay metho ds or kits canno t be used inter [facility] . Femal e Proge stero ne Range s: Folli cular phase 0.06- 0.89 ng/mL Ovula tion phase 0.12- 12.00 ng/mL Lutea l phase 1.83- 23.90 ng/mL Postm enopa usal <0.05 -0.13 ng/mL Healt hy Pregn ant Women 1st Trime ster 11.0- 44.30 2nd Trime ster 25.40 -83.3 0 3rd Trime ster 58.70 -214. 00 Not Available [facility] (Lab) [address] [facility], [place], [address], 11/29/2024 17:05:02 11/20/19 25 11/20/2024 ESTRA DIOL estradiol 61.2 pg/mL This assay was perfo rmed using [employer] ratio n reage nts and test kits. Value s obtai jia with other assay metho ds or kits canno t be used inter [facility] . Femal e Estra diol Range s: Folli cular phase 12.4- 233 pg/mL Ovula tion phase 41.0- 398 pg/mL Lutea l phase 22.3- 341 pg/mL Postm enopa usal <5-13 8 pg/mL Healt hy Pregn ant Women 1st Trime ster 154-3 243 pg/mL 2nd Trime ster 1561- 97183 pg/mL 3rd Trime ster 8525- >3000 0 pg/mL Not Available [facility] (Lab) [address] [facility], [place], [address], 11/29/2024 17:05:03 11/20/19 25 11/20/2024 LH (LUTE NIZIN G HORMO NE) LH 11.6 mIU/m L This assay was perfo rmed using [employer] ratio n reage nts and test kits. Value s obtai jia with other assay metho ds or kits canno t be used inter [facility] . Femal es Mid-F ollic ular: 2.4-1 2.6 mIU/m L Mid-C ycle: 14.0- 95.6 mIU/m L Mid-L uteal : 1.0-1 1.4 mIU/m L Postm enopa use: 7.7-5 8.5 mIU/m L Not Available [facility] (Lab) [address] [place], [address], 11/29/2024 17:05:03 11/20/19 25 11/20/2024 FSH FSH 4.8 mIU/m L This assay was perfo rmed using [employer] ratio n reage nts and test kits. Value s obtai jia with other assay metho ds or kits canno t be used inter acosta e[facility] . Femal es Folli cular : 3.5-1 2.5 mIU/m L Ovula tion: 4.7-2 1.5 mIU/m L Lutea l: 1.7-7 .7 mIU/m L Postm enopa use: 25.8- 134.8 mIU/m L Not Available [facility] (Lab) [address] [place], [address], 11/29/2024 17:05:03 11/20/19 25 11/20/2024 T4 FREE T4, free 0.77 NG/dL 0.60-1 .40 This assay is sustim ptibl e to tereza fitzpatrick ce from high level s of bioti n which may false ly eleva te resul ts. Jonathan ontiveros late with clini denise findi ngs. Not Available [facility] (Lab) [address] [facility], [place], [address], 11/29/2024 17:05:04 11/20/19 25 11/20/2024 TSH, REFLE X FREE T4 TSH 5.54 uIU/m L 0.30-5 .33 high Not Available [facility] (Lab) [address] [facility], [place], [address], 11/29/2024 17:05:04 11/20/19 25 11/20/2024 HUMAN SEX HORMO NE DAT NG GLOBU SIMONE sex hormone binding globulin 72.4 nmole s/L 18.2-1 35.5 Not Available [facility] (Lab) [address] [facility], [place], [address], 11/29/2024 17:05:05 11/20/19 25 11/20/2024 HEMOG LOBIN A1C hemoglobin A1C 5.1 % 4.0-5. 6 The Ameri can Diabe nilda Assoc iatio n recom mends that a prima ry goal of thera py inga hall be a HBA1C of < 7% and that physi cians shoul d reeva luate the treat ment regim en in patie nts with HBA1C value s consi stent ly > 8%. <5.7% Annmarie l 5.7 - 6.4% Incre ased risk for diabe nilda >=6.5 % Diagn ostic of diabe nilda <7.0% Goal of thera py >8.0% Actio n sugge sted Not Available [facility] (Lab) [address] [facility], [place], [address], 11/29/2024 17:05:05 11/20/19 25 11/20/2024 TESTO STERO NE, FREE( DIALY SIS) AND TOTAL (LC/M S/MS) testosterone , total 26 NG/dL 2-45 For addit ional jonathan wilburn refer to http: //cleine gamboa.que stdia gnost ics.c om/fa q/ Total Testo stero neLCM SMSFA Q165 (This link is being provi ded for charles walls nal/ educa nader l purpo ses only. ) This test was devel oped and its terence tical perfo rmanc e mnauel cteri stics have been deter mined by [employer] ostana maria s [place]. It has not been clear ed or appro rebecca by the U.S. Food and Drug Admin istra tion. This assay has been valid ated pursu ant to the CLIA regul ation s and is used for clini denise purpo ses. Not Available [facility] (Lab) [address] [facility], [place], [address], 11/29/2024 17:05:06 11/20/19 25 11/20/2024 TESTO STERO NE, FREE( DIALY SIS) AND TOTAL (LC/M S/MS) testosterone , free 2.6 pg/mL 0.1-6. 4 This test was devel oped and its terence tical perfo rmanc e manuel cteri stics have been deter mined by [employer] ostana maria [facility] [place]. It has not been clear ed or appro rebecca by the U.S. Food and Drug Admin istra tion. This assay has been valid ated pursu ant to the CLIA regul ation s and is used for clini denise purpo ses. Perfo rming Organ izati on [facility] sent[facility]ilmeaagn gamboa: Site ID: [id number] Name: Hugh Covarity alexis Pastoro ls Insti jackie Addre ss: [id number] [address] [place], [place] Direc tor: Emma Padilla MD PhD Not Available [facility] (Lab) [address] [place], [address], 11/29/2024 17:05:06 08/27/20 24 08/27/2024 US, pelvi s No observ ation record ed. [email or web address] [place] [address], [place], [address], 08/27/2024 13:53:30 08/27/20 24 08/27/2024 US, trans vagin al No observ ation record ed. [email or web address] [place] [address], [place], [address], 08/27/2024 13:53:41 08/27/20 24 08/27/2024 US, pelvi s No observ ation record ed. [email or web address] [address], [place], [address], 08/27/2024 14:29:51 11/19/19 25 11/19/2024 US, trans vagin al No observ ation record ed. [email or web address] [place] [address], [place], [address], 11/19/2024 18:37:10 11/19/19 25 11/19/2024 US, trans vagin al No observ ation record ed. [email or web address] [address], [place], [address], 11/19/2024 22:26:51 Result Notes None recorded. Procedures Surgical History Date Name Laterality Status Provider Name and Address Organization Details Recorded Time 03/06/20 23 ROBOTIC ASSISTED HYSTERECTOMY WITH SALPINGECTOMY (SURG) completed Suly Levine [facility] 03/07/2023 10:17:56 Tubal Ligation completed [facility] 11/14/2022 11:38:53 Endometrial Ablation completed [facility] 11/14/2022 11:38:53 Caesarean Section completed [facility] 11/14/2022 11:38:53 laparoscopy completed Madyson Patel, [facility]- [address], [place], [address], [place] [facility] 11/15/2022 14:32:29 Imaging Results Imaging Date Name Status LastModified by Organization Details LastModified Time 08/27/2024 US, pelvis completed [email or web address] [place] [address], [place], [address], 08/27/2024 13:53:30 08/27/2024 [facility]aginal [email or web address] [address], [place], [address], 08/27/2024 13:53:41 08/27/2024 US, pelvis completed [email or web address] [address], [place], [address], 08/27/2024 14:29:51 11/19/2024 US, transvaginal completed [email or web address] [facility] [address], [place], [address], 11/19/2024 18:37:10 11/19/2024 US, transvaginal completed [email or web address] [address], [place], [address], 11/19/2024 22:26:51 Procedure Notes None recorded. Medical [...] completed Not Available Not Available Not Available clonidine HCl 0.1 mg tablet TAKE 1 TABLET EVERY DAY BY NEEDED FOR 30 DAYS, FOR ANXIETY active Not Available Not Available No t Available ibuprofen 800 mg tablet TAKE 1 TABLET BY MOUTH THREE TIMES A DAY NEEDED FOR PAIN active Not Available Not Available No t Available benzonatate 200 mg capsule 200 MG [...] Not Available Not Available No t Available valacyclovi r 500 mg tablet TAKE 1 TABLET BY MOUTH TWICE A DAY FOR 5 DAYS active Not Available Not Available No t Available sulfamethox azole 800 mg-trimetho prim 160 mg tablet TAKE 1 TABLET BY MOUTH EVERY 12 HOURS active Not Available Not Available No t Available ondansetron 8 mg disintegrat ing tablet PLACE 1 TABLET EVERY 8 HOURS BY TRANSLING UAL ROUTE NEEDED, FOR NAUSEA. 08/21 completed Not Available Not Available Not Available oxycodone-a cetaminophe n 5 mg-325 mg tablet TAKE 1 TABLET BY MOUTH EVERY 4 HOURS NEEDED FOR PAIN 07/05 completed Not Available Not Available Not Available propranolol 10 mg tablet TAKE 1 TABLET EVERY DAY BY ORAL ROUTE NEEDED FOR 30 DAYS, FOR BREAKTHRO UGH ANXIETY. active Not Available Not Available No t Available citalopram 20 mg tablet TAKE 1 TABLET BY MOUTH EVERY DAY 11/14 completed Not Available Not Available Not Available Sure Comfort Insulin Syringe 1 mL 30 gauge x 16 USE NEW SYRINGE FOR EACH INJECTION 09/17 [...] Not Available Not Available No t Available buspirone 7.5 mg tablet TAKE 1 [...] completed Not Available Not Available Not Available cefdinir 300 mg capsule TAKE 1 CAPSULE BY MOUTH VERY 12 HOURS FOR 10 DAYS active Not Available Not Available No t Available sertraline 50 mg tablet TAKE 1 TABLET BY MOUTH EVERY DAY active Not Available Not Available No t Available amoxicillin 875 mg-potassiu m clavulanate 125 mg tablet TAKE 1 TABLET BY MOUTH EVERY 12 HOURS FOR 10 DAYS 11/14 completed Not Available Not Available Not Available hydroxyzine pamoate 25 mg capsule TAKE 1 CAPSULE 3 TIMES A DAY BY ORAL ROUTE NEEDED FOR 90 DAYS, FOR BREAKTHRO UGH ANXIETY. active Not Available Not Available No t Available aripiprazol e 5 mg tablet TAKE 1 TABLET BY MOUTH EVERY DAY FOR 30 DAYS active Not Available Not Available No t Available aripiprazol e 2 mg tablet TAKE 1 TABLET EVERY DAY BY ORAL ROUTE DIRECTED FOR 30 DAYS, FOR INTRUSIVE THOUGHTS. active Not Available Not Available No t Available Vitals Date Recorded Body weight Systolic blood pressure Diastolic blood pressure Provider Name and Address Organization Details Last Updated DateTime 08/21/2024 78069.31 g 103 mm[Hg] 68 mm[Hg] Geena Mina [facility] 08/21/2024 10:19:18 Date Recorded Body height Body mass index (BMI) Body weight Systolic blood pressure Diastolic blood pressure Provider Name and Address Organization Details Last Updated DateTime 09/17/2024 167.64 cm 25.2 kg/m2 58837.41 g 111 mm[Hg] 75 mm[Hg] [facility] 4 11:05:32 Date Recorded Body height Body mass index (BMI) Body weight Systolic blood pressure Diastolic blood pressure Provider Name and Address Organization Details Last Updated DateTime 11/20/2024 167.64 cm 24.4 kg/m2 04694.45 g 109 mm[Hg] 74 mm[Hg] [facility] 5 10:34:46 Social History Question Answer Notes LastModified by Organizat ion Details LastModified Time Tobacco Smoking Status Never Smoker Capri Henry [facility] 07/05/2023 10:12:54 What Is Your Level [...] Or The Highest Degree You Have Received? 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 [id number] Information not available 11/14/2022 Do You Use [...] Time Paternal Grandfather Malignant tumor of lung Not available 2022 10:03:27 Maternal Grandmother Disorder of thyroid gland [email or web address] Not available 2022 10:03:27 Mother Malignant tumor of breast [email or web address] Not available 2022 10:03:27 Medical History Condition Response Allergies (Food, seasonal, environmental ) N Other Y Breast Cancer N Drug/Latex Allergies/Reactions N Blood Transfusion N Dermatologic Disorders N Lung Disease N [...] SNOMED-CT Code Diagnosis ICD10 Code Diagnosis Note [id number] Madyson Patel [facility] [address] [address] 11/14/2022 11:23:07 11/15/2022 16:42:31 Chronic pelvic pain of female 132872027 R10.2 N80.9 N94.10 N94.5 Today we discussed the following: Updating STD screenUS --release signed for recent USConsult with Dr. Kodak GRAMAJO--intere sted in hysterecto my vs hormonal options to manage painful periods.Hx failed endometria l ablationHx failed hormonal BC optionsHx of tubal ligation Dyspareunia 32906455 N94 .10 Pursue PT pelvic floor for pelvic floor myalgia and spasticity which is common in those with hx of chronic pelvic pain/endom etriosis. Additional literature given from internatio nal pelvic pain society [id number] Nitin Candelario MD [place] [address] [address] 11/29/2022 12:06:02 11/29/2022 21:36:56 [id number] Nitin Candelario MD [place] [address] [address] 11/30/2022 15:56:03 11/30/2022 21:34:19 [id number] Nitin Candelario MD [place] [address] [address] 12/20/2022 12:26:19 12/20/2022 14:28:45 Dysmenorrhea 617091809 N94.6 Pain in pelvis 11738979 R10.2 Dyspareunia 39739302 N94 .10 Endometrio sis of pelvis 78667958 N80.30 this patient is a 27-year-ol d [...] assisted hysterecto my with bilateral salpingect bradley. [id number] Nitin Candelario MD [place] [address] [address] 02/27/2023 15:48:01 03/01/2023 10:21:29 Endometriosis of pelvis 04651221 N80.30 this patient is a 27-year-ol d female was severe pelvic pain and endometrio sis. We have agreed to perform robotic assisted hysterecto my with bilateral salpingect bradley. She understand s risks, benefits, and alternativ es. She has completed the informed consent process and is ready to proceed. Pain in pelvis 44011421 R10.2 [id number] Winifred Narayan [place] [address] [address] 03/13/2023 10:08:25 03/13/2023 10:10:26 [id number] Nitin Candelario MD [place] [address] [address] 03/13/2023 16:00:29 03/13/2023 17:06:56 Postoperative care 665112670 Z48.89 this patient is a 27-year-ol d female presents for postop follow-up. She had a incidental cystotomy. She had a cystogram today that was normal. Catheter was removed in the office. She tolerated it well. She has no complaints . We discussed her pathology report. She will follow-up as needed. Her incisions are clean dry and intact [id number] Nitin Candelario MD [place] [address],[place] [address] 07/05/2023 10:03:14 07/05/2023 11:15:34 Dyspareunia 81112638 N94.10 Pain in pelvis 39800389 R10.2 Dysmenorrhea 053897138 N 94.6 Reduced libido 4290490 R 68.82 27-year-ol d female presents for [...] and the benefit her recent hysterecto my. [id number] Nitin Candelario MD [place] [address],[place] [address] 08/21/2024 10:09:45 08/21/2024 11:08:54 Pain in pelvis 44816626 R10.2 [id number] [place] [address] [address] 08/27/2024 12:29:20 08/27/2024 13:11:36 Pain in pelvis 57620999 R10.2 [id number] Nitin Candelario MD [place] [address],[place] [address] 09/17/2024 11:00:39 09/17/2024 11:46:13 Cyst of ovary 09943226 N83.209 this patient is a 29-year-ol d [...] minutes on the patient's care in total. [id number] [facility] [address],[place] [address] 11/19/2024 10:22:15 11/19/2024 11:21:22 Cyst of right ovary 8904096861 2857621 N83.291 [id number] Nitin Candelario MD [place] [address],[place] [address] 11/20/2024 10:27:00 11/20/2024 11:32:54 Mood disorder 83387211 F39 Cyst of ovary 31057018 N 83.209 29-year-ol d female presents for [...] Perera Member ID Guarantor Name 08/21/2024 1 [place] [id number] Tenzin [id number] 3 Ankita De La Cruz 08/21/2024 2 [employer] (MEDICAID HMO) [id number] 3 Ankita De La Cruz [id number] Ankita De La Cruz 08/27/2024 1 [place] [id number] Tenzin De La Cruz [id number] 3 Ankita De La Cruz 08/27/2024 2 [employer] (MEDICAID HMO) [id number] 3 Ankita De La Cruz [id number] Ankita De La Cruz 09/17/2024 1 [place] [id number] Tenzin De La Cruz [id number] 3 Ankita De La Cruz 09/17/2024 2 [employer] (MEDICAID HMO) [id number] 3 Ankita De La Cruz [id number] Ankita De La Cruz 11/19/2024 1 [place] [id number] Tenzin De La Cruz [id number] 3 Ankita De La Cruz 11/19/2024 2 [employer] (MEDICAID HMO) [id number] 3 Ankita De La Cruz [id number] Ankita De La Cruz 11/20/2024 1 [place] [id number] Tenzin [id number] 3 Ankita De La Cruz 11/20/2024 2 [employer] (MEDICAID HMO) [id number] 3 Ankita De La Cruz [id number] Ankita De La Cruz Notes Date Note [...] triosis Nitin Candelario MD [address], [place], [address], [facility] 08/21/2024 11:00:35 09/17/2024 text/html this patient [...] total. Nitin Candelario MD [address], [place], [address], [facility] 09/17/2024 11:42:59 11/20/2024 text/html 29-year-old sangita [...] total. Nitin Candelario MD [address], [place], [address], [facility] 11/20/2024 11:12:37 OBGyn Episode Ob Episode Information Episode Created Date Number of Fetuses Patient Bloodtype Patient rh Status Prepregnancy Weight lbs Domestic Partner Domestic Partner Phone Father Name Section Gang Status 11/14/19 23 1 CLOSED Fetus Data First Name Last Name Admitted to NICU Weight (g) Sex Living Outcome Pediatric Complications Fetus ID Race Codes Race Delivery Type 3486.76 1704 M Full Term [id number] Primary Yobani Calculation Initial Yobani Date Initial [...] Domestic Partner Domestic Partner Phone Father Name Section Gang Status 11/14/19 23 1 CLOSED Fetus Data First Name Last Name Admitted to NICU Weight (g) Sex Living Outcome Pediatric Complications Fetus ID Race Codes Race Delivery Type 3543.46 0704 M Full Term [id number] Repeat Yobani Calculation Initial Yobani Date Initial [...]
--- OUTSIDE RECORDS SUMMARY | 2025-01-19 09:54 | XMS_ITS | Clinical Summary ---
Author Organization [facility] Address [address] [place] [address] Care Team Providers Care Television Mechanic Name Role Phone Mary Koenig ART Primary Care Provider [phone] Source Comments [facility],non-owned Affiliates and Associated Physician Practices is amultiple site organization consisting of ambulatory clinics and hospital sitesin [place], [place], [place] and [place]. This disclosure is being madepursuant to the Care Everywhere program and may not contain all information available regarding this patient. Last updated 18.[facility] Allergies No known active allergies Active Problems [...] VACCINE (1 - 2023-2 5 season) 2024 DEPRESSION SCREENING 10/14/2024 INFLUENZA VACCINE (Season Ended) 2025 ZOSTER VACCINE (1 of 2) 2047 HIB VACCINE Aged Out No longer eligi ble based on patient's age to complete this topic HPV VACCINE Aged Out No longer eligi ble based on patient's age to complete this topic MENINGOCOCCAL (Group B) VACC INE SHARED DECISION-MAKING Aged Out No longer eligibl e based on patient's age to complete this topic MENINGOCOCCAL GROUPS A/C/Y/W VACCINE Aged Out No longer eligible b ased on patient's age to complete this topic PNEUMOCOCCAL VACCINE Aged Out No long er eligible based on patient's age to complete this topic Care Teams Television Mechanic Relationship Specialty Start Date End Date Mary Koenig APRN-[employer] IN[employer]CTOR [address] [place] [address] PCP - General 08/23/22
--- OUTSIDE RECORDS SUMMARY | 2025-01-19 09:54 | XMS_ITS | Referral Summary ---
Author Organization [facility] Address [address] [place] [address] Care Team Providers Care Underwriting Clerk Name Role Phone Mary Koenig NP Primary Care Provider [phone] Encounters Date Type Department Care Team Description 11/30/2024 7:30 PM TECHNICAL IMPLEMENTATION LEAD Office Visit [facility] [place] [address] [place] [address] Marcela Sherman NP Abscess of left upper eyelid (Primary Dx) from Last 3 Months Allergies [...] by mouth 2 (two) times a day 11/18/202 4 Active sertraline (ZOLOFT) 25 mg tablet [...] on file Legal Sex Female 9:38 AM TECHNICAL IMPLEMENTATION LEAD Gender Identity Female 08/07/2021 10:07 AM CDT Sexual Orientation Not on file Last Filed Vital Signs Vital Sign Reading Time Taken Comments Blood Pressure 104/68 11/30/2024 7:36 PM TECHNICAL IMPLEMENTATION LEAD Pulse 88 11/30/2024 7:36 PM TECHNICAL IMPLEMENTATION LEAD Temperature 36.4 C (97.5 F) 11/30/2024 7:36 PM TECHNICAL IMPLEMENTATION LEAD Respiratory Rate 16 11/30/2024 7:36 PM TECHNICAL IMPLEMENTATION LEAD Oxygen Saturation 99% 11/30/2024 7:36 PM TECHNICAL IMPLEMENTATION LEAD Inhaled Oxygen Concentration - - Weight 69.4 kg (153 lb) 11/30/2024 7:36 PM TECHNICAL IMPLEMENTATION LEAD Height 167.6 cm (5' 6 ) 11/30/2024 7:36 PM TECHNICAL IMPLEMENTATION LEAD Body Mass Index 24.69 11/30/2024 7:36 PM TECHNICAL IMPLEMENTATION LEAD Plan of Treatment Not on file Goals Goal Patient Goal Type Associated Problems Recent Progress Patient-Stated? Author [facility] Rosina Guthrie, RN Note: Hold son for extended period of time, exercise with minimal to no pain. Insurance [place] [employer] O[employer] [facility] BLUE ACCESS OOS Care Teams Underwriting Clerk Relationship Specialty Start Date End Date Mary Koenig NP [address] [place] [address] PCP - General 12/14/20
== END 2025-01-19 09:52 | disposition home or self-care (01) ==
PROVIDERS: Emergency Provider Nurse Practitioner; PCP Nurse Practitioner Family
DX: J06.9 Acute upper respiratory infection, unspecified (principal); F17.290 Nicotine dependence, other tobacco product, uncomplicated; F41.9 Anxiety disorder, unspecified; F32.A Depression, unspecified
CPT/HCPCS: 87081; 87880; 99213; G0463

== ENCOUNTER 2025-03-25 08:55 | Outpatient (CLI) | payer BC, OTHER, SELFPAY ==
--- OUTSIDE RECORDS SUMMARY | 2025-03-25 09:20 | XMS_ITS | Clinical Summary ---
Author Organization [facility] Address [address] [facility] [place] [address] Phone Care Team Providers Care Employment Clerk Name Role Phone Brett Koenigdarlene BENDER CNP Primary Care Provider [phone] [phone] Allergies No known active allergies Medications triamcinolone (KENALOG) 0.1 % Cream Apply 2 times daily. Active HYDROcodone-acet aminophen (NORCO) 5-325 MG TabletIndication s:Abscess of eyebrow Take 1 Tablet by mouth every 8 hours as needed for Severe pain. 12 Tablet 11/30/2024 Active Family History Medical History Relation Name [...] Comments Blood Pressure 118/67 11/30/2024 10:45 PM AREA DEVELOPMENT CONSULTANT Pulse 93 11/30/2024 10:45 PM AREA DEVELOPMENT CONSULTANT Temperature 36.7 C (98.1 F) 11/30/2024 10:03 PM AREA DEVELOPMENT CONSULTANT Respiratory Rate 17 11/30/2024 10:45 PM AREA DEVELOPMENT CONSULTANT Oxygen Saturation 100% 11/30/2024 10:45 PM AREA DEVELOPMENT CONSULTANT Inhaled Oxygen Concentration - - Weight 68 kg (150 lb) 11/30/2024 10:03 PM AREA DEVELOPMENT CONSULTANT Height 167.6 cm (5' 6) 11/30/2024 10:03 PM AREA DEVELOPMENT CONSULTANT Body Mass Index 24.21 11/30/2024 10:03 PM AREA DEVELOPMENT CONSULTANT Plan of Treatment Health Maintenance Due Date Last Done Comments Hepatitis C Virus (HCV) Screening 1997 Hepatitis B Immunization (1 of 3 - 19+ 3-dose series) 2016 SARS-COV-2 Immunization ( - 2023- season) 2024 Influenza Immunization (Seas on Ended) 2025 07/12/2022, 09/20/2020, 07/08/2019 Respiratory Syncytial Virus (RSV) Immunization (Adult) (1 - 1-dose 75+ series) 2072 DTaP/Tdap/Td Immunization Discontinued 04/15/2021 TdaP Immunization Completed 04/15/2021 Human Papillomavirus (HPV) Immunization Aged Out No longer eligible based on patient's age to complete this topic Meningococcal Immunization (ACWY) Aged Out No longer eligible based on patient's age to complete this topic Pneumococcal Immunization Combined Aged Out No longer eligible based on patient's age to complete this topic Rotavirus Immunization Aged Out No lo nger eligible based on patient's age to complete this topic Insurance MEDICAID [facility] Care Teams Employment Clerk Relationship Specialty Start Date End Date Mary Koenig APRN, TILE ROOFER [address] [place] [address] PCP - General Family Medicine 04/29/20
--- OUTSIDE RECORDS SUMMARY | 2025-03-25 09:20 | XMS_ITS | Encounter Summary ---
Author Organization [facility] Address [address] [place] [address] Care Team Providers Care Educational Program Assistant Name Role Phone Mary Koenig FIREBOAT OPERATOR Primary Care Provider [phone] Reason for Visit * Reason Comments PT Initial Eval * Consultation (Routine) - Authorized Specialty Diagnoses / Procedures Referred By Mike t Referred To Contact Physical Therapy Diagnoses Low back pain, unspecified back pain laterality, unspecified chronicity, unspecified whether sciatica present Mary Koenig NP [address] [place] [address] Phone: tel: fax: [address] [phone] Referral ID Status Reason Start Date Expiration Date Visits Requested Visits Authorized [id number] Authorized Evaluate and Treat 02/02/2025 03/04/2026 6 6 Encounter Details Date Type Department Care Team (Late st Contact Info) Description 03/24/2025 11:00 AM CDT Therapy [facility] [place] [address] Benitez Whitlock, PT Low back pain, unspecified back pain laterality, unspecified chronicity, unspecified whether sciatica present Social History Tobacco Use Types Packs/Day Years [...] on file 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 female Sharyn Tomlinson MD [address] [place] [id number] ICD-10-CM 1. Low back pain, unspecified back pain laterality, unspecified chronicity, unspecified whether sciatica present M54.50 Ambulatory referral order to Physical Therapy - Subjective Chief Complaint: Patient reports long issues with lower back pain since 2019. She had a spinal withher first son and has had issues since then. She did get MRI in 2019 that indicated bulging disks in her lower back. She has been taking gabapentin to manage pain since then. Pain: often has minimal pain. She has dull aching in the left side of the posterior pelvis and radiates into the L hamstring region. She does experience numbness and tingling into the area. Denies weakness or symptoms below the L knee. Denies bowel/bladder changes. Aggravating Factors: long periods of standing and sitting. Lifting her kids will aggravate her pain. Alleviating Factors: walking, stretching knee to chest or with leg crossed over. Previous medical management: gabapentin. Previous MRI. Function: Prior Level of Function: Current Functional Level: Increased pain with activity, minimally limited right now. Patient Goals: to find ways to help alleviate the pain. Objective Modified Oswestry: 18% Observations: Standing: Posture: neutral curves, level pelvis Gait: pelvic drop in L stance. Squat: R hip IR, lateral shift of pelvis to R Range of Motion: Lumbar Flexion: WNL Lumbar Extension: WNL Lumbar Sidebend: 90% to L, 100% to R Lumbar Rotation: WNL bilateral. Repeated Lumbar Motions: excessive lumbar extension on return, no pain. Supine: Sahrmann Low Ab Progression Level: 1/5 Manual Muscle Testing: Left Right Hip Flexion 5/5 5/5 Hip External Rotation 5/5 5/5 Hip Internal Rotation 5/5 5/5 Hip Abduction 4-/5 4/5 Knee Extension 5/5 5/5 Knee Flexion 5/5 5/5 Ankle DF 5/5 5/5 Ankle PF 5/5 5/5 Joint Assessment: Palpation: Special Tests: Slump:discomfort reproduced in L posterior pelvis with lumbar flexion/ankle DF on left. Straight Leg Raise: positive on L for discomfort at 45 deg elevation. Hamstring stifffness on R at 60 deg elevation HEATHER/FADIR: no symptoms, hip IR ROM >ER. Treatment Provided: Soft tissue mobilization to L QL Bird dog 5x5 Clamshells - green x10 Supine and sitting sciatic nerve gliders HEP: Access Code: [email or web address] URL: [email or web address] Date: 03/24/2025 Prepared by: Benitez Whitlock Exercises - Bird Dog - 1 x daily - 1-2 sets - 5 reps - 5s hold - Clamshell with Resistance - 1 x daily - 2 sets - 8-10 reps - Seated Sciatic Nerve Marble With Cervical Motion - 1 x daily - 5 sets - 5 reps - Supine Sciatic Nerve Marble - 1 x daily - 2 sets - 5 reps Assessment/Plan Assessment Impairments: abnormal or restricted ROM, impaired physical strength, pain with function, lacks appropriate home exercise program Assessment details: Pt. presents with chronic L lumbar radiculopathy. She presents with decreased core stability and hip strength, abnormal sciatic nerve tension, tednerness and soft tissue pain in LQL, and decreased tolerance of prolonged standing/sitting. She will benefit from skilled PT to reduce pain, improve core stability, improve sciatic and hip mobility/flexibility, and improve functional tolerance. Prognosis: good Goals STG 1:: independent with initial HEP. Goal status: New STG 2:: Pt. to initiate core stability exercises without pain. Goal status: New LTG 1:: Improve lower abdominal strength to 3/5 and hold planks/side planks for 30 seconds by discharge. Goal status: New LTG 2:: Pt. to have no discomfort with SLR >60 deg on L. Goal status: New Plan Start time: 1050 End time: 1140 Therapy options: will be seen for skilled therapy services Planned modality interventions: thermotherapy (hydrocollator packs), cryotherapy, interferential current Planned therapy interventions: abdominal trunk stabilization, body mechanics training, postural training, strengthening, Kinesiotaping, stretching, therapeutic activities, manual therapy, home exercise program, functional ROM exercises Frequency: 2 x/week Duration in weeks: 4 weeks Discussed with: patient Future Treatment Plan: plank progression, bridging and lower abdominal progression, hip hinge/neutral spine bending and lifting, progress to standing gluteus medius strengthening. Benitez Whitlock, PT, MPT, COMT documented in this encounter Plan of Treatment Not on file documented as of this encounter Goals Goal Patient Goal Type Associated Problems Recent Progress Patient-Stated? Author [facility] No Rosina Cormire, RN Note: Hold son for extended period of time, exercise with minimal to no pain. documented as of this encounter Visit Diagnoses Diagnosis Low back pain, unspecified back pain laterality, unspecified chronicity, unspecified whether sciatica present documented in this encounter Orders Outpatient Referral Count Last Ordered Date st Ordered Date AMB REFERRAL ORDER TO PHYSICAL THERAPY 1 documented in this encounter Care Teams Educational Program Assistant Relationship Specialty Start Date End Date Mary Koenig NP [address] [place] [address] PCP - General 12/14/20 documented as of this encounter
--- OUTSIDE RECORDS SUMMARY | 2025-03-25 09:20 | XMS_ITS | Encounter Summary ---
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 Author [facility] No Rosina Cormier, RN Note: Hold son for extended period of time, exercise with minimal to no pain. documented as of this encounter Visit Diagnoses Not on filedocumented in this encounter Care Teams Irrigation Manager Relationship Specialty Start Date End Date Koenig, Mary Pike NP [address] [place] [address] PCP - General 12/14/20 documented as of this encounter
--- OUTSIDE RECORDS SUMMARY | 2025-03-25 09:20 | XMS_ITS | Clinical Summary ---
Author Organization [facility] Address [address] [facility] [place] [address] Care Team Providers Care Public Utilities Sales Representative Name Role Phone Mary Koenig ART Primary Care Provider [phone] Source Comments [facility] [employer],non-owned Affiliates and Associated Physician Practices is amultiple site organization consisting of ambulatory clinics and hospital sitesin [place], [place], [place] and [place]. This disclosure is being madepursuant to the Care Everywhere program and may not contain all information available regarding this patient. 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
--- OUTSIDE RECORDS SUMMARY | 2025-03-25 09:20 | XMS_ITS | Clinical Summary ---
Author Organization [facility] Address [address] [place] [address] Care Team Providers Care Lean Specialist Name Role Phone Mary Koenig NP Primary Care Provider + [phone] Allergies No known active allergies Medications citalopram [...] 02/23/2021 DDD (degenerative disc disease), lumbar 02/24/20 Dysmenorrhea 06/05/2016 Viral upper respiratory tract infection 05/06/20 16 Overview (01/16/2017): Viral upper respiratory tract infection Pharyngitis 05/06/2016 Overview (01/16/2017): Pharyngitis, unspecified etiology Chest pain 01/26/2011 Encounters Date Type Department Care Team Description 03/24/2025 11:00 AM CDT Therapy [facility] [place] [address] Benitez Whitlock, PT Low back pain, unspecified back pain laterality, unspecified chronicity, unspecified whether sciatica present 03/24/2025 Plan of Care Documentation [facility] [place] [address] from Last 3 Months Surgical History Surgery Date Site/Laterality Comments OTHER SURGICAL HISTORY 10/14/2012 - 10/13/2013 Dysmenorrhea (severe): Toradol po SECTION EXPLORATORY LAPAROTOMY Medical History Medical History Date Comments Hx Other Medical 2012 Dysmenorrhea (s evere) Hx Other Medical 2016 Type I genital HSV Personal history of [...] on file Legal Sex Female 9:38 AM DIRECTOR OF PEOPLE Gender Identity Female 08/07/2021 10:07 AM CDT Sexual Orientation Not on file Obstetrics History Last Filed Vital Signs Vital Sign Reading Time Taken Comments Blood Pressure 104/68 11/30/2024 7:36 PM DIRECTOR OF PEOPLE Pulse 88 11/30/2024 7:36 PM DIRECTOR OF PEOPLE Temperature 36.4 C (97.5 F) 11/30/2024 7:36 PM DIRECTOR OF PEOPLE Respiratory Rate 16 11/30/2024 7:36 PM DIRECTOR OF PEOPLE Oxygen Saturation 99% 11/30/2024 7:36 PM DIRECTOR OF PEOPLE Inhaled Oxygen Concentration - - Weight 69.4 kg (153 lb) 11/30/2024 7:36 PM DIRECTOR OF PEOPLE Height 167.6 cm (5' 6) 11/30/2024 7:36 PM DIRECTOR OF PEOPLE Body Mass Index 24.69 11/30/2024 7:36 PM DIRECTOR OF PEOPLE Plan of Treatment Health Maintenance Due Date Last Done Comments Hepatitis C Screening 1997 DTaP/Tdap/Td Vaccine (1 - Tdap) 2008 Varicella Vaccines (1 of 2 - 13+ 2-dose series) 2010 Hepatitis B Screening 2015 Regular Well Visit/Exam 18-64 2015 Depression Screening 02/23/2022 02/23/2021, 02/23/2021 Influenza Vaccine (Season Ended) 2025 09/20/2020, 07/08/2019 HPV Vaccines Aged Out No longer [...] exercise with minimal to no pain. Insurance BLUE ACCESS OOS [facility] BLUE ACCESS OOS Care Teams Lean Specialist Relationship Specialty Start Date End Date Mary Koenig NP [address] [place] [address] PCP - General 12/14/20
--- OUTSIDE RECORDS SUMMARY | 2025-03-25 09:20 | XMS_ITS | Referral Summary ---
Author Organization [facility] Address [address] [place] [address] Care Team Providers Care Personal Banking Representative Name Role Phone Mary Koenig NP Primary Care Provider + [phone] Encounters Date Type Department Care Team Description 03/24/2025 Plan of Care Documentation [facility] Physical Therapy [facility] [place] [address] 03/24/2025 11:00 AM CDT Therapy [facility] Physical Therapy [facility] [place] [address] Benitez Whitlock, PT Low back pain, unspecified back pain laterality, unspecified chronicity, unspecified whether sciatica present from Last 3 Months Allergies No known [...] on file Legal 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 Gender Identity Female 08/07/2021 10:07 AM CDT Sexual Orientation Not on file Last Filed Vital Signs Vital Sign Reading Time Taken Comments Blood Pressure 104/68 11/30/2024 7:36 PM SOLDERER DIPPER Pulse 88 11/30/2024 7:36 PM SOLDERER DIPPER Temperature 36.4 C (97.5 F) 11/30/2024 7:36 PM SOLDERER DIPPER Respiratory Rate 16 11/30/2024 7:36 PM SOLDERER DIPPER Oxygen Saturation 99% 11/30/2024 7:36 PM SOLDERER DIPPER Inhaled Oxygen Concentration - - Weight 69.4 kg (153 lb) 11/30/2024 7:36 PM SOLDERER DIPPER Height 167.6 cm (5' 6) 11/30/2024 7:36 PM SOLDERER DIPPER Body Mass Index 24.69 11/30/2024 7:36 PM SOLDERER DIPPER Plan of Treatment Not on file Goals Goal Patient Goal Type Associated Problems Recent Progress Patient-Stated? Author [facility] Rosina Guthrie, RN Note: Hold son for extended period of time, exercise with minimal to no pain. Insurance [employer] OOS [facility] [employer] Care Teams Personal Banking Representative Relationship Specialty Start Date End Date Arya, Mary Pike NP [address] [place] [address] PCP - General 12/14/20
[2025-03-25 20:11] LABS: Hematocrit 40.1 % (37.0-47.0); Hemoglobin 13.2 g/dL (12.0-15.0); Mean Corpuscular HGB Conc 32.9 g/dl (32-36); Mean Corpuscular Hemoglobin 29.9 pg (26-34); Mean Corpuscular Volume 90.9 fl (80-100); Mean Platelet Volume 9.2 fl (7.4-10.4); Platelet Count Result 295 k/mm3 (150-375); Red Blood Count 4.41 M/mm3 (4.2-5.4); Red Cell Distribution Width 13.2 % (11.5-14.5); White Blood Count 6.3 K/mm3 (4.5-10.0)
[2025-03-25 20:52] LABS: Iron 88 ug/dL (37-170)
[2025-03-25 21:03] LABS: Percent Iron Saturation 27 % (20-50)
[2025-03-25 21:10] LABS: Free T4 Free Thyroxine 1.15 ng/dL (0.78-2.19)
[2025-03-25 21:17] LABS: Alanine Aminotransferase 13 U/L (6-35); Albumin Level 4.9 g/dL (3.5-5.1); Alkaline Phosphatase 39 U/L (38-126); Anion Gap 9 mmol/L (4-12); Aspartate Amino Transferase 46 U/L (14-36); Bilirubin,Total 1.2 mg/dL (0.2-1.3); Blood Urea Nitrogen 9 mg/dL (7-17); Calcium 9.9 mg/dL (8.4-10.2); Carbon Dioxide 25 mmol/L (22-30); Chloride 105 mmol/L (98-107); Cholesterol 160 mg/dL (0-200); Estimated Glomerular Filt Rate > 60; Glucose 65 mg/dL (65-110); HDL Direct 50 mg/dL; Sodium 139 mmol/L (137-145); Triglycerides 53 mg/dL (<150)
[2025-03-25 21:31] LABS: LDL Cholesterol Direct 86 mg/dL
[2025-03-25 22:05] LABS: Vitamin B12 > 1000.0 pg/mL (239-931)
[2025-03-29 15:13] LABS: Thyroid Peroxidase Antibodies 457 IU/mL (<9)
== END 2025-03-25 08:56 | disposition home or self-care (01) ==
LOC: ANHBWCLAB 08:57
PROVIDERS: PCP Nurse Practitioner Adult Health; Visit Provider Nurse Practitioner Adult Health
DX: Z00.00 Encounter for general adult medical examination without abnormal findings (principal); R00.2 Palpitations
CPT/HCPCS: 36415; 80053; 80061; 82607; 82728; 83540; 83550; 84439; 84443; 84480; 85027; 86376

== ENCOUNTER 2025-04-12 14:35 | Outpatient (CLI) | payer BC, OTHER, SELFPAY ==
--- NOTE | ~2025-04-12 | US_ITS ---
Thyroid ultrasound. Clinical History: Disorder of thyroid gland, unspecified Findings: Real-time sonography of the thyroid gland was performed. The right lobe measures 4.4 x 0.9 x 2.1 cm. The left lobe measures 4.3 x 1.6 x 1.9 cm. The isthmus is 3 mm in AP diameter. There is a 1.7 x 0.9 x 1.4 cm hypoechoic solid mass at the right lower pole. Thyroid parenchyma is di ffusely heterogeneous. Impression: 1.7 cm TR-4 nodule at the right lower pole. FNA advised to establish a histologic diagnosis.. Reviewed, dictated and finalized at location M. Impression: 1.7 cm TR-4 nodule at the right lower pole. FNA advised to establish a histolog ic diagnosis..
--- OUTSIDE RECORDS SUMMARY | 2025-04-12 14:43 | XMS_ITS | Clinical Summary ---
Author Organization [facility] Address [address] [facility], [place] [address] Phone Care Team Providers Care Dean Of Students Name Role Phone Brett Koenigdarlene BENDER CNP Primary Care Provider [phone] Allergies No known active allergies Medications triamcinolone [...] Comments Blood Pressure 118/67 11/30/2024 10:45 PM HEAT TREATING OPERATOR Pulse 93 11/30/2024 10:45 PM HEAT TREATING OPERATOR Temperature 36.7 C (98.1 F) 11/30/2024 10:03 PM HEAT TREATING OPERATOR Respiratory Rate 17 11/30/2024 10:45 PM HEAT TREATING OPERATOR Oxygen Saturation 100% 11/30/2024 10:45 PM HEAT TREATING OPERATOR Inhaled Oxygen Concentration - - Weight 68 kg (150 lb) 11/30/2024 10:03 PM HEAT TREATING OPERATOR Height 167.6 cm (5' 6) 11/30/2024 10:03 PM HEAT TREATING OPERATOR Body Mass Index 24.21 11/30/2024 10:03 PM HEAT TREATING OPERATOR Plan of Treatment Health Maintenance Due [...] to complete this topic Insurance MEDICAID [facility] Care Teams Dean Of Students Relationship Specialty Start Date End Date Mary Koenig APRN, SALES FLOOR ASSOCIATE [address] [place] [address] PCP - General Family Medicine 04/29/20
--- OUTSIDE RECORDS SUMMARY | 2025-04-12 14:43 | XMS_ITS | Referral Summary ---
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 Plan of Care Documentation [facility] [place] [address] 03/24/2025 11:00 AM CDT Therapy [facility] [address] [place] [address] Benitez Whitlock, PT Low back pain, unspecified back pain laterality, unspecified chronicity, unspecified whether sciatica present from Last 3 Months Allergies No known active allergies Medications cyclobenzaprin e (FLEXERIL) 10 mg tablet Take by mouth 3 (three) times a day as needed 02/15/20 21 Active gabapentin (NEURONTIN) 300 mg capsule Take 1 capsule (300 mg total) by mouth nightly 90 capsule 1 08/21/20 21 Active busPIRone (BUSPAR) 7.5 mg tablet Take 1 tablet (7.5 mg total) by mouth 2 (two) times a day 08/31/20 24 Active sertraline (ZOLOFT) 25 mg tablet Take 1 tablet (25 mg total) by mouth daily 09/08/20 24 Active ARIPiprazole (ABILIFY) 5 mg tablet TAKE 1 TABLET BY MOUTH EVERY DAY FOR 30 DAYS 11/24/19 25 Active propranoloL (INDERAL) 10 mg tablet TAKE 1 TABLET EVERY DAY BY ORAL ROUTE NEEDED FOR 30 DAYS, FOR BREAKTHROUGH ANXIETY. 11/24/19 25 Active sertraline (ZOLOFT) 100 mg tablet Take 1 tablet (100 mg total) by mouth daily 10/05/20 24 Active cloNIDine (CATAPRES) 0.1 mg tablet Take 1 tablet (0.1 mg total) by mouth 2 (two) times a day 03/29/20 25 Active TIRZEPATIDE SUBQ Inject under the skin Active citalopram (CeleXA) 10 mg tablet take 1 tablet by oral route every day 30 13 01/24/20 16 025 Discontinued ibuprofen (ADVIL,MOTRIN) 600 mg tablet TAKE 1 TABLET BY MOUTH THREE TIMES A DAY NEEDED FOR PAIN 01/03/20 21 025 Discontinued traMADoL (ULTRAM) 50 mg tablet Take 1 tablet (50 mg total) by mouth every 8 (eight) hours as needed 05/01/20 025 Discontinued ferrous sulfate 325 mg (65 mg of elemental iron) tablet Take 1 tablet (325 mg total) by mouth daily 025 Discontinued HYDROcodone-ac etaminophen (NORCO) 5-325 mg per tablet TAKE 1 TABLET BY MOUTH EVERY 8 HOURS NEEDED FOR MODERATE OR MORE SEVERE PAIN 11/02/19 025 Discontinued hydrOXYzine (VISTARIL) 25 mg capsule TAKE 1 CAPSULE 3 TIMES A DAY BY ORAL ROUTE NEEDED FOR 90 DAYS, FOR BREAKTHROUGH ANXIETY. 10/28/19 25 025 Discontinued ondansetron (ZOFRAN) 4 mg tablet TAKE 1 TAB BY MOUTH EVERY 8 HOURS NEEDED 025 Discontinued Active Problems Problem Noted Date Diagnosed Date BMI 39.0-39.9,adult 08/11/2021 Sacroiliitis 02/23/2021 Chronic left-sided low back pain without sciatic a 02/23/2021 DDD (degenerative disc disease), lumbar 05/13/20 21 Dysmenorrhea 06/05/2016 Viral upper respiratory tract infection 05/06/20 16 Overview (01/16/2017): Viral upper respiratory tract infection Pharyngitis 05/06/2016 Overview (01/16/2017): Pharyngitis, unspecified etiology Chest pain 01/26/2011 Social History Tobacco Use Types Packs/Day Years Used Date Smoking Tobacco: Every Day Vaping Smokeless Tobacco: Never Tobacco Cessation:Ready to Q uit: Not Asked; Counseling Given: Not Answered Alcohol Use Standard Drinks/Week Comments No 0 [...] on file Legal Sex Female 9:38 AM 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 [employer] Gender Identity Female 08/07/2021 10:07 AM CDT Sexual Orientation Not on file Last Filed Vital Signs Vital Sign Reading Time Taken Comments Blood Pressure 106/68 03/31/2025 2:50 PM CDT Pulse 86 03/31/2025 2:50 PM CDT Temperature 36.4 C (97.5 F) 11/30/2024 7:36 PM [employer] Respiratory Rate 16 11/30/2024 7:36 PM [employer] Oxygen Saturation 99% 11/30/2024 7:36 PM [employer] Inhaled Oxygen Concentration - - Weight 67 kg (147 lb 9.6 oz) 03/31/2025 2:50 PM CDT Height 167.6 cm (5' 6) 03/31/2025 2:50 PM CDT Body Mass Index 23.82 03/31/2025 2:50 PM CDT Plan of Treatment Not on file Goals Goal Patient Goal Type Associated Problems Recent Progress Patient-Stated? Author [facility] No Rosina Cormier, RN Note: Hold son for extended period of time, exercise with minimal to no pain. Insurance [employer] OOS [facility] [employer] Care Teams Manager Contracting Relationship Specialty Start Date End Date Mary Koenig NP [address] [place] [address] PCP - General 12/14/20
--- OUTSIDE RECORDS SUMMARY | 2025-04-12 14:43 | XMS_ITS | Clinical Summary ---
Author Organization [facility] Address [address] [place] [address] Care Team Providers Care Wholesale Agronomist Name Role Phone Mary Koenig NP Primary Care Provider [phone] Allergies No known active allergies Medications cyclobenzaprin [...] every 8 (eight) hours as needed 05/01/20 21 025 Discontinued ferrous sulfate 325 mg (65 mg of elemental iron) tablet Take 1 tablet (325 mg total) by mouth daily 025 Discontinued HYDROcodone-ac etaminophen (NORCO) 5-325 mg per tablet TAKE 1 TABLET BY MOUTH EVERY 8 HOURS NEEDED FOR MODERATE OR MORE SEVERE PAIN 11/02/19 23 025 Discontinued hydrOXYzine (VISTARIL) 25 mg capsule [...] Description 03/31/2025 3:00 PM CDT Office Visit [facility] Diabetes Endocrine Care at [address] [address] Kary Plascencia DO Borderline abnormal TFTs (Primary Dx); 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 11:00 AM CDT Therapy [facility] [place] [address] Benitez Whitlock, JUDITH Low back pain, unspecified back pain laterality, unspecified chronicity, unspecified whether sciatica present 03/24/2025 Plan of Care Documentation [facility] [place] [address] [place] [address] from Last 3 Months Surgical History Surgery [...] on file 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 Gender Identity Female 08/07/2021 10:07 AM CDT Sexual Orientation Not on file Obstetrics History Last Filed Vital Signs Vital Sign Reading Time Taken Comments Blood Pressure 106/68 03/31/2025 2:50 PM CDT Pulse 86 03/31/2025 2:50 PM CDT Temperature 36.4 C (97.5 F) 11/30/2024 7:36 PM GLAZIER SUPERVISOR Respiratory Rate 16 11/30/2024 7:36 PM GLAZIER SUPERVISOR Oxygen Saturation 99% 11/30/2024 7:36 PM GLAZIER SUPERVISOR Inhaled Oxygen Concentration - - Weight 67 kg (147 lb 9.6 oz) 03/31/2025 2:50 PM CDT Height 167.6 cm (5' 6) 03/31/2025 2:50 PM CDT Body Mass Index 23.82 03/31/2025 2:50 PM CDT Plan of Treatment Health Maintenance Due Date Last Done Comments Hepatitis C Screening 1997 DTaP/Tdap/Td Vaccine (1 - Tdap) 2008 Varicella Vaccines (1 of 2 - 13+ 2-dose series) 2010 Hepatitis B Screening 2015 Regular Well Visit/Exam 18-64 2015 Pneumococcal vaccine <65 (1 of 2 - PCV) 2016 Depression Screening 02/23/2022 02/23/2021, 02/23/2021 Influenza Vaccine (Season Ended) 2025 09/20/2020, 07/08/2019 HPV Vaccines Aged Out No longer eligi ble based on patient's age to complete this topic Goals Goal Patient Goal Type Associated Problems Recent Progress Patient-Stated? Author [facility] Rosina Guthrie, RN Note: Hold son for extended period of time, exercise with minimal to no pain. Insurance 20/20 [employer] OOS [facility] 20/20 [employer] OOS Member Subscriber Plan / Payer (Ef fective 2013-Present) Name:Ankita De La Cruz Relation to Subscriber:Spouse Name:TENZIN DE LA CRUZ Date of :1996 Address: [address] [place] [address] Payer ID:[id number] (NAIC) Type:[facility] Address: [address] [place] [id number] Care Teams Wholesale Agronomist Relationship Specialty Start Date End Date Koenig, Mary Pike NP [address] [place] [address] PCP - General 12/14/20
--- OUTSIDE RECORDS SUMMARY | 2025-04-12 14:43 | XMS_ITS | Clinical Summary ---
Author Organization [facility] Address [address] [address] Care Team Providers Care Strip Picker Name Role Phone Mary Koenig ART Primary Care Provider [phone] Source Comments [facility] [employer],non-owned Affiliates and Associated Physician Practices is amultiple site organization consisting of ambulatory clinics and hospital sitesin [place], [place], [place] and [place]. This disclosure is being madepursuant to the Care Everywhere program and may not contain all information available regarding this patient. 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 Care Teams Strip Picker Relationship Specialty Start Date End Date Mary Koenig APRN-LOUIE [address] [place] [address] PCP - General 08/23/22
--- OUTSIDE RECORDS SUMMARY | 2025-04-12 14:43 | XMS_ITS | Data Portability ---
Author Organization [facility], [place] Address [address] [place] [address] Care Team Providers Care Stud Beef Cattle Farmer Name Role Phone RUFINO TIRADO Primary Care Provider [phone] Assessment Encounter Date Assessment Date Assessment LastModified [...] performed today. We spent over 25 minutes [id number]. The patient was given precautions. She will [...] recorded. Lab dhea-sulfat e, serum 2024 025 [facility] (Lab), [address], [place], [address], 17:05:01 estradiol, serum 2024 025 [facility] (Lab), [address] [place], [address], 5 17:05:03 FSH (follicle-s timulating hormone), serum 2024 025 [facility] (Lab), [address], [place], [address], 5 17:05:04 HbA1c (hemoglobin A1c), blood 2024 025 [facility] (Lab), [address] [place], [address], 5 17:05:05 lh (luteinizin g hormone), serum 2024 025 [facility] (Lab), [address] [place], [address], 5 17:05:03 progesteron e, serum 2024 025 [facility] (Lab), [address] [place], [address], 5 17:05:02 prolactin, serum 2024 025 [facility] (Lab), [address] [place], [address], 5 17:05:02 shbg (sex hormone-bin ding globulin), serum 2024 025 [facility] (Lab), [address] [place], [address], 5 17:05:05 TSH, serum or plasma 2024 025 [facility] (Lab), [address] [place], [address], 5 17:05:05 testosteron e free/testos terone total, ratio, serum 2024 025 [facility] (Lab), [address] [facility], [place], [address], 5 17:05:06 ova1, serum 2023 024 GIOR[facility] (Lab), [address] [facility] [address], [place], [address], 4 10:48:38 Referral None recorded. Procedures None recorded. Surgeries None recorded. Imaging US, transvagina l 2024 [address], [address], [place], [address], 5 19:35:34 US, pelvis 2023 [address], [address], [place], [address], 4 14:34:30 US, transvagina l 2023 [address], [address], [place], [address], 4 14:34:30 Medication Orders None recorded. Patient TargetsNo targets recorded. Patient InstructionsNo instructions recorded. Reason for Referral None Reported. Results Created Date Observation Date Name Description Value Unit Range Abnormal Flag Note LastModifiedBy Organization Detail LastModifiedTime 09/17/20 24 09/17/2024 OVA 1 scan result See Scanne d Result Not Available [facility] (Lab) [address] [facility], [place], [address], 09/22/2024 10:48:38 11/20/19 25 11/20/2024 DHEA SULFA TE DHEA-sulfate 99 ug/dL Femal e Range s Age(y ) Range (ug/d L) 10-15 34-28 0 15-20 65-36 8 20-25 148-4 07 25-35 99-34 0 35-45 61-33 7 45-55 35-25 6 55-65 19-20 5 65-75 9-246 > 75 12-15 4 Not Available [facility] (Lab) [address] [place], [address], 11/29/2024 17:05:01 11/20/19 25 11/20/2024 PROLA CTIN prolactin, total 8.22 NG/mL 4.79-2 3.30 This assay was perfo rmed using [employer] ratio n reage nts and test kits. Value s obtai jia with other assay metho ds or kits canno t be used inter [facility] . Not Available [facility] (Lab) [address] [place], [address], 11/29/2024 17:05:02 11/20/19 25 11/20/2024 PROGE STERO NE progesterone 2.43 NG/mL This assay was perfo rmed using [employer] ratio n reage nts and test kits. Value s obtai jia with other assay metho ds or kits canno t be used inter [facility] . Femal e Proge stero ne Range s: Folli cular phase 0.06- 0.89 ng/mL Ovula tion phase 0.12- 12.00 ng/mL Lutea l phase 1.83- 23.90 ng/mL Postm enopa usal <0.05 -0.13 ng/mL Healt hy Pregn ant Women 1st Trime ster 11.0- 44.30 2nd Trime ster 25.40 -83.3 0 3rd Trime ster 58.70 -214. 00 Not Available [facility] (Lab) [address] [place], [address], 11/29/2024 17:05:02 11/20/19 25 11/20/2024 ESTRA DIOL estradiol 61.2 pg/mL This assay was perfo rmed using [employer] ratio n reage nts and test kits. Value s obtai jia with other assay metho ds or kits canno t be used inter [facility] . Femal e Estra diol Range s: Folli cular phase 12.4- 233 pg/mL Ovula tion phase 41.0- 398 pg/mL Lutea l phase 22.3- 341 pg/mL Postm enopa usal <5-13 8 pg/mL Healt hy Pregn ant Women 1st Trime ster 154-3 243 pg/mL 2nd Trime ster 1561- 73539 pg/mL 3rd Trime ster 8525- >3000 0 pg/mL Not Available [facility] (Lab) [address] [facility], [place], [address], 11/29/2024 17:05:03 11/20/19 25 11/20/2024 LH (LUTE NIZIN G HORMO NE) LH 11.6 mIU/m L This assay was perfo rmed using [employer] ratio n reage nts and test kits. Value s obtai jia with other assay metho ds or kits canno t be used inter [facility] . Femal es Mid-F ollic ular: 2.4-1 2.6 mIU/m L Mid-C ycle: 14.0- 95.6 mIU/m L Mid-L uteal : 1.0-1 1.4 mIU/m L Postm enopa use: 7.7-5 8.5 mIU/m L Not Available [facility] (Lab) [address] [place], [address], 11/29/2024 17:05:03 11/20/19 25 11/20/2024 FSH FSH [...] use: 25.8- 134.8 mIU/m L Not Available [facility] (Lab) [address] [place], [address], 11/29/2024 17:05:03 11/20/19 25 11/20/2024 T4 FREE T4, free 0.77 NG/dL 0.60-1 .40 This assay is sustim ptibl e to tereza dumont from high level s of bioti n which may false ly eleva te resul ts. Jonathan ontiveros late with clini denise findi ngs. Not Available [facility] (Lab) [address] [facility], [place], [address], 11/29/2024 17:05:04 11/20/19 25 11/20/2024 TSH, REFLE X FREE T4 TSH 5.54 uIU/m L 0.30-5 .33 high Not Available [facility] (Lab) [address] [facility], [place], [address], 11/29/2024 17:05:04 11/20/19 25 11/20/2024 HUMAN SEX HORMO NE DAT NG GLOBU SIMONE sex hormone binding globulin 72.4 nmole s/L 18.2-1 35.5 Not Available [facility] (Lab) [address] [facility], [place], [address], 11/29/2024 17:05:05 11/20/19 25 11/20/2024 HEMOG LOBIN A1C hemoglobin A1C 5.1 % 4.0-5. 6 The Ameri can Diabe nilda Assoc iatio n recom mends that a prima ry goal of thera py inga hall be a HBA1C of < 7% and that physi cians inga d reeva luate the treat ment regim en in patie nts with HBA1C value s consi stent ly > 8%. <5.7% Annmarie l 5.7 - 6.4% Incre ased risk for diabe nilda >=6.5 % Diagn ostic of diabe nilda <7.0% Goal of thera py >8.0% Actio n sugge sted Not Available [facility] (Lab) [address] [facility], [place], [address], 11/29/2024 17:05:05 11/20/19 25 11/20/2024 TESTO STERO NE, FREE( DIALY SIS) AND TOTAL (LC/M S/MS) testosterone , total 26 NG/dL 2-45 For addit ional jonathan wilburn refer to http: //celine gamboa.que stdia gnost ics.c om/fa q/ Total Testo stero neLCM SMSFA Q165 (This link is being provi ded for ashleylam walls nal/ educa nader l purpo ses only. ) This test was devel oped and its terence tical perfo rmanc e manuel cteri stics have been deter mined by [employer] alexis s [place], [place]. It has not been clear ed or appro rebecca by the U.S. Food and Drug Admin istra tion. This assay has been valid ated pursu ant to the CLIA regul ation s and is used for clini denise purpo ses. Not Available [facility] (Lab) [address] [facility], [place], [address], 11/29/2024 17:05:06 11/20/19 25 11/20/2024 TESTO STERO NE, FREE( DIALY SIS) AND TOTAL (LC/M S/MS) testosterone , free 2.6 pg/mL 0.1-6. 4 This test was devel oped and its terence tical perfo rmanc e manuel cteri stics have been deter mined by [employer] [facility] [place], [place]. It has not been clear ed or appro rebecca by the U.S. Food and Drug Admin istra tion. This assay has been valid ated pursu ant to the CLIA regul ation s and is used for clini denise purpo ses. Perfo rming Organ izati on [facility] gamboa: Site ID: [id number] Name: Hugh Pastoro ls Insti jackie Addre ss: [id number] [facility] [place], [place] Direc tor: Emma Padilla MD PhD Not Available [facility] (Lab) [address] [place], [address], 11/29/2024 17:05:06 08/27/20 24 08/27/2024 US, pelvi s No observ ation record ed. [email or web address] [place] [address], [place], [address], 08/27/2024 13:53:30 08/27/20 24 08/27/2024 US, trans vagin al No observ ation record ed. [email or web address] [place] [address], [place], [address], 08/27/2024 13:53:41 08/27/20 24 08/27/2024 US, pelvi s No observ ation record ed. [email or web address] [address], [place], [address], 08/27/2024 14:29:51 11/19/19 25 11/19/2024 US, trans vagin al No observ ation record ed. [email or web address] [place] [address], [place], [address], 11/19/2024 18:37:10 11/19/19 25 11/19/2024 US, trans vagin al No observ ation record ed. [email or web address] [address], [place], [address], 11/19/2024 22:26:51 Result Notes None recorded. Procedures Surgical History Date Name Laterality Status Provider Name and Address Organization Details Recorded Time 03/06/20 23 ROBOTIC ASSISTED HYSTERECTOMY WITH SALPINGECTOMY (SURG) completed Suly Levine [facility] 03/07/2023 10:17:56 Tubal Ligation completed [facility] 11/14/2022 11:38:53 Endometrial Ablation completed [facility] 11/14/2022 11:38:53 Caesarean Section completed [facility] 11/14/2022 11:38:53 laparoscopy completed Madyson Patel, [facility]- [address], [place], [address], [facility] 11/15/2022 14:32:29 Imaging Results None recorded. Procedure Notes None recorded. Medical Equipment None [...] Insulin Syringe 1 mL 30 gauge x 02/26 USE NEW SYRINGE FOR EACH INJECTION 09/17 [...] No t Available Vitals Date Recorded Body height Body mass index (BMI) Body weight Systolic blood pressure Diastolic blood pressure Provider Name and Address Organization Details Last Updated DateTime 11/20/2024 167.64 cm 24.4 kg/m2 57116.45 g 109 mm[Hg] 74 mm[Hg] [facility] 10:34:46 Date Recorded Body weight Systolic blood pressure Diastolic blood pressure Provider Name and Address Organization Details Last Updated DateTime 08/21/2024 21917.31 g 103 mm[Hg] 68 mm[Hg] [facility] 08/21/2024 10:19:18 Date Recorded Body height Body mass index (BMI) Body weight Systolic blood pressure Diastolic blood pressure Provider Name and Address Organization Details Last Updated DateTime 09/17/2024 167.64 cm 25.2 kg/m2 95570.41 g 111 mm[Hg] 75 mm[Hg] [facility] 4 11:05:32 Social History Question Answer Notes LastModified by Organizat ion Details LastModified Time Tobacco Smoking Status Never Smoker [facility] 07/05/2023 10:12:54 Are You Blind Or Do You Have Difficulty Seeing? No Information n ot available 11/14/2022 What Is Your Level Of Caffeine Consumption? Occasional Information not available 11/14/2022 How Much Tobacco Do You Chew? None Information not available 11/14/2022 In The 14 Days Before Symptom Onset, Have You Had Close Contact With A Laboratory-confirm ed COVID-19 While That Case Was Ill? No Information n ot available 11/14/2022 In The 14 Days Before [...] Of Diet Are You Following? REGULAR Information n ot available 07/05/2023 What Is The Highest Grade Or Level Of School You Have Completed Or The Highest Degree You Have Received? [id number] Information not available 11/14/2022 Are There Any [...] LastModified by Organizat ion Details LastModified Time Do you use any illicit or recreational drugs? No Information not available 11/14/2022 What is your level of alcohol consumption? None Information not available 11/14/2022 Are you able to walk? 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 Occasional Information not available 11/14/2022 Mental Status Question Answer Note LastModified by Organization D etails LastModified Time Do you feel stressed (tense, restless, nervous, or anxious, or unable to sleep at night)? [id number] saira Information not available 11/14/2022 Family History Relationship Description Onset Age of this Age Resolved Age Notes LastModified by Organization Details LastModified Time Paternal Grandfather Malignant neoplasm of lung Not available 2022 10:03:27 Maternal Grandmother Disorder of thyroid gland Not available 2022 10:03:27 Mother Malignant tumor of breast [email or web address] Not available 2022 10:03:27 Medical History Condition [...] SNOMED-CT Code Diagnosis ICD10 Code Diagnosis Note [id number] [facility] [address],[place] [address] 11/14/2022 11:23:07 11/15/2022 16:42:31 Chronic pelvic pain of female 691736590 R10.2 N80.9 N94.10 N94.5 Today we discussed the following: Updating STD screenUS --release signed for recent USConsult with Dr. Kodak GRAMAJO--intere sted in hysterecto my vs hormonal options to manage painful periods.Hx failed endometria l ablationHx failed hormonal BC optionsHx of tubal ligation Dyspareunia 97408643 N94 .10 Pursue PT pelvic floor for pelvic floor myalgia and spasticity which is common in those with hx of chronic pelvic pain/endom etriosis. Additional literature given from internatio nal pelvic pain society [id number] Nitin Candelario MD [place] [address],[place] [address] 11/29/2022 12:06:02 11/29/2022 21:36:56 [id number] Nitin Candelario MD [place] [address],[place] [address] 11/30/2022 15:56:03 11/30/2022 21:34:19 [id number] Nitin Candelario MD [place] [address],[place] [address] 12/20/2022 12:26:19 12/20/2022 14:28:45 Dysmenorrhea 473039739 N94.6 Pain in pelvis 40610682 R10.2 Dyspareunia 06708372 N94 .10 Endometrio sis of pelvis 41007193 N80.30 this patient is a 27-year-ol d [...] assisted hysterecto my with bilateral salpingect bradley. [id number] Nitin Candelario MD [place] [address] [address] 02/27/2023 15:48:01 03/01/2023 10:21:29 Endometriosis of pelvis 66175279 N80.30 this patient is a 27-year-ol d female was severe pelvic pain and endometrio sis. We have agreed to perform robotic assisted hysterecto my with bilateral salpingect bradley. She understand s risks, benefits, and alternativ es. She has completed the informed consent process and is ready to proceed. Pain in pelvis 13597760 R10.2 [id number] Nitin Candelario MD [place] [address],[place] [address] 03/13/2023 10:08:25 03/13/2023 10:10:26 [id number] Nitin Candelario MD [place] [address] [address] 03/13/2023 16:00:29 03/13/2023 17:06:56 Postoperative care 653251804 Z48.89 this patient is a 27-year-ol d female presents for postop follow-up. She had a incidental cystotomy. She had a cystogram today that was normal. Catheter was removed in the office. She tolerated it well. She has no complaints . We discussed her pathology report. She will follow-up as needed. Her incisions are clean dry and intact [id number] Nitin Candelario MD [place] [address] [address] 07/05/2023 10:03:14 07/05/2023 11:15:34 Dyspareunia 50412844 N94.10 Pain in pelvis 35267978 R10.2 Dysmenorrhea 978055701 N 94.6 Reduced libido 3700821 R 68.82 27-year-ol d female presents for [...] and the benefit her recent hysterecto my. [id number] Nitin Candelario MD [place] [address],[place] [address] 08/21/2024 10:09:45 08/21/2024 11:08:54 Pain in pelvis 48330439 R10.2 [id number] Nitin Candelario MD [place] [address],[place] [address] 08/27/2024 12:29:20 08/27/2024 13:11:36 Pain in pelvis 72524873 R10.2 [id number] Nitin Candelario MD [place] [address],[place] [address] 09/17/2024 11:00:39 09/17/2024 11:46:13 Cyst of ovary 27788577 N83.209 this patient is a 29-year-ol d [...] minutes on the patient's care in total. [id number] Nitin Candelario MD [place] [address] [address] 11/19/2024 10:22:15 11/19/2024 11:21:22 Cyst of right ovary [id number] 9710406 N83.291 [id number] Nitin Candelario MD [place] [address] [address] 11/20/2024 10:27:00 11/20/2024 11:32:54 Mood disorder 22639043 F39 Cyst of ovary 94415593 N 83.209 29-year-ol d female presents for [...] Recorded Advance Directives Directive None Recorded Payers Insurance Date Sequence Insurance Name Policy Number Policy Perera Covered Member ID Perera Member ID Guarantor Name 11/23/2024 1 [facility] [place] [id number] Tenzin De La Cruz [id number] Ankita De La Cruz 03/06/2024 1 [facility] [place] [id number] Tenzin De La Cruz [id number] Ankita De La Cruz 11/23/2024 2 [facility] (MEDICAID HMO) [id number] Ankita De La Cruz [id number] Ankita De La Cruz Notes Date Note [...] triosis Nitin Candelario MD [address], [place], [address], [facility], [...] total. Nitin Candelario MD [address], [place], [address], [facility] 09/17/2024 11:42:59 11/20/2024 text/html 29-year-old femcee ramon presents for ultrasound follow-up. Her ovarian [...] total. Nitin Candelario MD [address], [place], [address], [facility] 11/20/2024 11:12:37 OBGyn Episode Ob Episode Information Episode Created Date Number of Fetuses Patient Bloodtype Patient rh Status Prepregnancy Weight lbs Domestic Partner Domestic Partner Phone Father Name Graphic Design Specialist Status 11/14/19 23 1 CLOSED Fetus Data First Name Last Name Admitted to NICU Weight (g) Sex Living Outcome Pediatric Complications Fetus ID Race Codes Race Delivery Type 3486.76 1704 M Full Term [id number] Primary Yobani Calculation Initial Yobani Date Initial [...] Domestic Partner Domestic Partner Phone Father Name Graphic Design Specialist Status 11/14/19 1 CLOSED Fetus Data First Name Last Name Admitted to NICU Weight (g) Sex Living Outcome Pediatric Complications Fetus ID Race Codes Race Delivery Type 3543.46 0704 M Full Term 70228 Repeat Yobani Calculation Initial Yobani Date Initial [...]
--- OUTSIDE RECORDS SUMMARY | 2025-04-12 14:44 | XMS_ITS | Data Portability ---
Author Organization [place] [facility] auto[facility] - [facility] [place] Address [address] [place] [address] Assessment Encounter Date Assessment Date Assessment LastModified [...] not constitute a prescription for medical cannabis. [email or web address] Not available 11/20/2022 16:00:49 Plan of Treatment [...] By Organization Details Last Modified Time 11/16/2022 [id number] I have discussed the risks and benefits [...] being evaluated, and answering of all questions. [email or web address] Not available 11/16/2022 15:03:22 11/20/2022 [id number] I have discussed the risks and benefits [...] SNOMED-CT Code Diagnosis ICD10 Code Diagnosis Note [id number] Christi Kurtz MD [facility] [address] [place] [address] 11/16/2022 15:00:32 11/16/2022 15:47:18 Spinal cord disease 23973066 G95.9 [id number] Snow Zhang NP [facility] [address] [place] [address] 11/20/2022 15:29:41 11/20/2022 16:04:54 Spinal cord disease 46541986 G95.9 Health Concerns Section Related Observation LastModified by Organization Detai ls LastModified Time None Recorded Concern Status LastModified by Organization Details LastModified Time None Recorded Advance Directives Directive None Recorded Payers Insurance Date Sequence Insurance Name Policy Number Policy Perera Covered Member ID Perera Member ID Guarantor Name 11/23/2022 1 [facility]: [facility] (PPO) [id number] Tenzin De La Cruz [id number] Ankita De La Cruz Notes Date [...] SPINAL CORD DISEASE Christi Kurtz MD [address], [place], [address], [facility] 11/16/2022 [...] Zhang NP [address], [place], [address], [facility] 11/20/2022 16:01:11 OBGyn Episode No OBEpisode recorded.
== END 2025-04-12 14:36 | disposition home or self-care (01) ==
PROVIDERS: PCP Nurse Practitioner Adult Health; Visit Provider Nurse Practitioner Adult Health
DX: E04.1 Nontoxic single thyroid nodule (principal)
CPT/HCPCS: 76536

== ENCOUNTER 2025-05-11 12:14 | Outpatient (CLI) | payer BC, OTHER, SELFPAY ==
--- OUTSIDE RECORDS SUMMARY | 2025-05-11 12:19 | XMS_ITS | Data Portability ---
Author Organization [place] [facility] - [facility] [place] Address [address] [place] [address] Assessment Encounter Date Assessment Date Assessment LastModified [...] not constitute a prescription for medical cannabis. [email or web address] Not available 11/20/2022 16:00:49 Plan of Treatment [...] By Organization Details Last Modified Time 11/16/2022 [id number] I have discussed the risks and benefits [...] questions. [email or web address] Not available 11/16/2022 15:03:22 11/20/2022 [id number] I have discussed the risks and benefits [...] SNOMED-CT Code Diagnosis ICD10 Code Diagnosis Note [id number] Christi Kurtz MD [facility] [address] [place] [address] 11/16/2022 15:00:32 11/16/2022 15:47:18 Spinal cord disease 39784685 G95.9 [id number] Snow Zhang NP [facility] [address] [place] [address] 11/20/2022 15:29:41 11/20/2022 16:04:54 Spinal cord disease 70834997 G95.9 Health Concerns Section Related Observation LastModified by Organization Detai ls LastModified Time None Recorded Concern Status LastModified by Organization Details LastModified Time None Recorded Advance Directives Directive None Recorded Payers Insurance Date Sequence Insurance Name Policy Number Policy Perera Covered Member ID Perera Member ID Guarantor Name 11/23/2022 1 [facility] (PPO) [id number] Tenzin De La Cruz [id number] Ankita De La Cruz OBGyn Episode No OBEpisode recorded.
--- OUTSIDE RECORDS SUMMARY | 2025-05-11 12:19 | XMS_ITS | Clinical Summary ---
Author Organization [facility] Address [address] [facility], [place] [address] Phone Care Team Providers Care Clerk Of Works Name Role Phone Brett Koenigdarlene BENDER CNP Primary Care Provider [phone] Allergies No known active allergies Medications triamcinolone [...] Comments Blood Pressure 118/67 11/30/2024 10:45 PM FARM MACHINERY ASSEMBLER Pulse 93 11/30/2024 10:45 PM FARM MACHINERY ASSEMBLER Temperature 36.7 C (98.1 F) 11/30/2024 10:03 PM FARM MACHINERY ASSEMBLER Respiratory Rate 17 11/30/2024 10:45 PM FARM MACHINERY ASSEMBLER Oxygen Saturation 100% 11/30/2024 10:45 PM FARM MACHINERY ASSEMBLER Inhaled Oxygen Concentration - - Weight 68 kg (150 lb) 11/30/2024 10:03 PM FARM MACHINERY ASSEMBLER Height 167.6 cm (5' 6) 11/30/2024 10:03 PM FARM MACHINERY ASSEMBLER Body Mass Index 24.21 11/30/2024 10:03 PM FARM MACHINERY ASSEMBLER Plan of Treatment Health Maintenance Due Date Last Done Comments Hepatitis C Virus (HCV) Screening 1997 Human Papillomavirus (HPV) Immunization (1 - 3-dose series) 2012 Hepatitis B Immunization (1 of 3 - 19+ 3-dose series) 2016 SARS-COV-2 Immunization ( - 2023- season) 2024 Influenza Immunization (#1) 06/14/202506/15, 09/20/2020, 07/08/2019 Respiratory Syncytial Virus (RSV) Immunization [...] to complete this topic Insurance MEDICAID [facility] Care Teams Clerk Of Works Relationship Specialty Start Date End Date Mary Koenig APRN, STITCH BONDING MACHINE OPERATOR [address] [place] [address] PCP - General Family Medicine 04/29/20
--- OUTSIDE RECORDS SUMMARY | 2025-05-11 12:19 | XMS_ITS | Encounter Summary ---
Author Organization [facility] Address [address] [place] [address] Care Team Providers Care Mortgage Loan Counselor Name Role Phone Mary Koenig TRADE EMBALMER Primary Care Provider + [phone] Kandace Ashley TRADE EMBALMER Unavailable [phone] Encounter Details Date Type Department Care Team (Late st Contact Info) Description 04/26/2025 Telephone [facility] Radiology [address] [place] [address] Audrey Anthony, LESLIE Social History Tobacco Use Types Packs/Day Years Used Date Smoking Tobacco: Every Day Vaping Smokeless Tobacco: Never Alcohol Use Standard Drinks/Week [...] on file Legal Sex Female 9:38 AM TOMATO GRADER Gender Identity Female 08/07/2021 10:07 AM CDT Sexual Orientation Not on file documented as of this encounter Miscellaneous Notes * Telephone Encounter - Audrey Anthony RN - 05/11/2025 10:55 AM CDT No updated order or consult order noted in fax drive to date. Pt had LVM checking on status of scheduling. Called Dr Linder's office and LVM requesting call back. Called pt and relayed status of biopsy request. She stated she spoke to Dr Linder today who stated he had received an addendum to the pt's OSH US report. Stated she was confused about the reason for the biopsy (poss Graves disease?). Reviewed that our Radiologists will provide a recommendation once the US imaging is nominated for consult. Relayed I would reach out to her as soon as we have what is needed to proceed with scheduling. She thanked this nurse for the assistance and encouragement. * Telephone Encounter - Audrey Anthony RN - 05/05/2025 11:08 AM CDT Received VM from pt asking if her ENT office had sent all the necessary things to move forward withscheduling. She stated she got pushback from them when she called to obtain it. Relayed that we hadreceived an order from her PCP, not Dr Linder's office, and the imaging had been pushed electronically, but that the laterality of the nodule and the consult order were still needed. She stated she would call her PCP and request those things. She thanked this nurse for the assistance. * Telephone Encounter - Audrey Anthony RN - 04/30/2025 2:57 PM CDT Received VM from pt stating she had signed a release for [facility] to release pt's US imaging and send electronically to [facility] [place]. She also stated she had called the referring office and requested the consult order and biopsy order to be faxed to this office. Reviewed fax drive and noted no new faxes from pt's referring provider. Will continue to monitor for necessary imaging and orders. * Telephone Encounter - Audrey Anthony RN - 04/29/2025 2:33 PM CDT Called pt and reviewed that referring office was unwilling to request imaging be pushed into [facility], provide consult order, and that despite being told that order would be faxed, we had not received any faxed orders to date.Also have not received any other PHI for this pt via fax. Pt verbalizedunderstanding, thanked this nurse for trying to get what was needed, and agreed to [facility] get required information to get her scheduled. Pt to request procedure order with ICD-10 code, consult order, and that she would request imaging be pushed into [facility]. * Telephone Encounter - Audrey Anthony RN - 04/26/2025 3:35 PM CDT Received call back from Audrey at Dr Linder's office and she stated, I can only send you 3 things: The order that was changed, the visit, and her insurance card. When asked how imaging could be pushed, since the referring office typically makes that request, she stated the pt would have to call the hospital and make that request. I then asked who I would contact if something else was needed related to the biopsy order. She stated the pt would have to make that request, not this nurse. Reviewedthat I would call the pt and relay that all requested information (consult order, etc.) had to comefrom her and we would proceed from there. Provided Audrey with the fax number for this office. * Telephone Encounter - Audrey Anthony RN - 04/26/2025 1:35 PM CDT Received call from pt asking about getting a biopsy at [facility]. Stated she had her US at [facility] and was scheduled for a biopsy there, but they could not get her scheduled until 06/22/25. Called pt and relayed that will all things in place we could get her in sooner than current date. Reviewed process for outside imaging upload, review process, consult fee. She agreed to proceed. Called referring office (Dr Linder--[phone] Option 4) and LVM asking for return call. documented in this encounter Plan of Treatment Not on file documented as of this encounter Goals Goal Patient Goal Type Associated Problems Recent Progress Patient-Stated? Author [facility] No Rosina Cormier, LESLIE Note: Hold son for extended period of time, exercise with minimal to no pain. documented as of this encounter Visit Diagnoses Not on filedocumented in this encounter Care Teams Mortgage Loan Counselor Relationship Specialty Start Date End Date Koenig, Mary Pike NP [address] [place] [address] PCP - General 12/14/20 Kandace Ashley NP [address] [place] [address] [place] [place] [address] Nurse Practitioner Nurse Practitioner 05/03/25 documented as of this encounter
--- OUTSIDE RECORDS SUMMARY | 2025-05-11 12:19 | XMS_ITS | Clinical Summary ---
Author Organization [facility] Address [address] [place] [address] Care Team Providers Care Compressor Engineer Name Role Phone Mary Koenig NP Primary Care Provider [phone] Kandace Ashley FUEL TANK SEALER AND TESTER Unavailable [phone] Allergies No known active allergies Medications cyclobenzaprine (FLEXERIL) 10 mg tablet Take by mouth 3 (three) times a day as needed 1 Active gabapentin (NEURONTIN) 300 mg capsule Take 1 capsule (300 mg total) by mouth nightly 90 capsule 1 1 Active busPIRone (BUSPAR) 7.5 mg tablet Take 1 tablet (7.5 mg total) by mouth 2 (two) times a day 4 Active sertraline (ZOLOFT) 25 mg tablet Take 1 tablet (25 mg total) by mouth daily 4 Active ARIPiprazole (ABILIFY) 5 mg tablet TAKE 1 TABLET BY MOUTH EVERY DAY FOR 30 DAYS 5 Active propranoloL (INDERAL) 10 mg tablet TAKE 1 TABLET EVERY DAY BY ORAL ROUTE NEEDED FOR 30 DAYS, FOR BREAKTHROUGH ANXIETY. 5 Active sertraline (ZOLOFT) 100 mg tablet Take 1 tablet (100 mg total) by mouth daily 4 Active cloNIDine (CATAPRES) 0.1 mg tablet Take 1 tablet (0.1 mg total) by mouth 2 (two) times a day 5 Active TIRZEPATIDE SUBQ Inject under the skin Active Active Problems Problem Noted Date Diagnosed Date BMI 39.0-39.9,adult 08/11/2021 Sacroiliitis 02/23/2021 Chronic left-sided low back pain without sciatic a 02/23/2021 DDD (degenerative disc disease), lumbar 02/24/20 21 Dysmenorrhea 06/05/2016 Viral upper respiratory tract infection 05/06/20 16 Overview (01/16/2017): Viral upper respiratory tract infection Pharyngitis 05/06/2016 Overview (01/16/2017): Pharyngitis, unspecified etiology Chest pain 01/26/2011 Encounters Date Type Department Care Team Description 05/07/2025 Telephone [facility] Radiology 1 [place] [address] Edna León RN 05/07/2025 Telephone [facility] Radiology [address] [place] [address] Edna León RN 04/26/2025 Telephone [facility] Radiology [address] [place] [address] Audrey Anthony RN 04/13/2025 Results Follow-Up [facility] Diabetes Endocrine Care at [address] [address] Kary Plascencia, T4, free, T3, free, Thyroid Function [place] 03/31/2025 3:00 PM CDT Office Visit [facility]ocrine [facility] at [address] [address] Kary Plascencia DO Borderline abnormal TFTs (Primary Dx); 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 11:00 AM CDT Therapy [facility] [place] [address] Benitez Whitlock, PT Low back pain, unspecified back pain laterality, unspecified chronicity, unspecified whether sciatica present 03/24/2025 Plan of Care Documentation [facility] [place] [address] from Last 3 Months Surgical History Surgery [...] on file Legal Sex Female 9:38 AM BIT SETTER Gender Identity Female 08/07/2021 10:07 AM CDT Sexual Orientation Not on file Obstetrics History Last Filed Vital Signs Vital Sign Reading Time Taken Comments Blood Pressure 106/68 03/31/2025 2:50 PM CDT Pulse 86 03/31/2025 2:50 PM CDT Temperature 36.4 C (97.5 F) 11/30/2024 7:36 PM BIT SETTER Respiratory Rate 16 11/30/2024 7:36 PM BIT SETTER Oxygen Saturation 99% 11/30/2024 7:36 PM BIT SETTER Inhaled Oxygen Concentration - - Weight 67 [...] - PCV) 2016 Depression Screening 02/23/2022 02/23/2021, 02/24/20 21 HPV Vaccines (1 - 3-dose SCDM series) 2024 Influenza Vaccine (#1) 2025 09/20/2020, 2018 Goals Goal Patient Goal Type Associated Problems Recent Progress Patient-Stated? Author [facility] No Rosina Cormier, LESLIE Note: Hold son for extended period of time, exercise with minimal to no pain. Procedures Procedure Name Priority Date/Time Associated Diagnosis Comments THYROID FUNCTION CASCADE Routine 04/13/2025 12:32 PM CDT Borderline abnormal TFTs T3, FREE Routine 04/12/2025 12:37 PM CDT Borderline abnormal TFTs T4, FREE Routine 04/12/2025 12:37 PM CDT Borderline abnormal TFTs from Last 3 Months Results * Thyroid Function [place] (04/13/2025 12:32 PM CDT) TSH 2.66 mIU/L [facility] Comment: Reference Range > or = 20 Years 0.40-4.50 Ranges First trimester 0.26-2.66 Second trimester 0.55-2.73 Third trimester 0.43-2.91 Blood 04/13/2025 12:3 2 PM CDT 04/13/2025 12:33 PM CDT Narrative [facility] - 04/14/2025 9:49 AM CDT FASTING:NO FASTING: NO Kary Plascencia DO LAB BLOOD ORDERABLES Final Result [facility] [address] [place] [address] * T3, free (04/12/2025 12:37 PM CDT) Free T3 3.0 2.3 - 4.2 pg/mL [facility] Blood 04/12/2025 12:3 7 PM CDT 04/12/2025 12:37 PM CDT Narrative [facility] - 04/13/2025 8:01 AM CDT FASTING:NO FASTING: NO Kary Plascencia DO LAB BLOOD ORDERABLES Final Result [facility] [address] [address] * T4, free (04/12/2025 12:37 PM CDT) Free T4 1.0 0.8 - 1.8 ng/dL [facility] Blood 04/12/2025 12:3 7 PM CDT 04/12/2025 12:37 PM CDT Narrative [facility] - 04/13/2025 8:01 AM CDT FASTING:NO FASTING: NO [facility] Jung Plascencia DO LAB BLOOD ORDERABLES Final Result Performing Organization Address City/[facility] Co de Phone Number AARTI [facility] [address] [phone] from Last 3 Months Insurance [employer] [facility] [employer] ACC[employer] OOS Care Teams Compressor Engineer Relationship Specialty Start Date End Date Mary Koenig NP [address] [place] [address] PCP - General 12/14/20 Kandace Ashley NP [facility] [place] [place] [address] Nurse Practitioner Nurse Practitioner 05/03/25
--- OUTSIDE RECORDS SUMMARY | 2025-05-11 12:19 | XMS_ITS | Clinical Summary ---
Author Organization [facility] Address [address] [place] [address] Care Team Providers Care Boilermaker Welder Name Role Phone Mary Koenig ART Primary Care Provider [phone] Source Comments [facility],non-owned Affiliates and Associated Physician Practices is amultiple site organization consisting of ambulatory clinics and hospital sitesin [place], [place], [place] and [place]. This disclosure is being madepursuant to the Care Everywhere program and may not contain all information available regarding this patient. Last updated 18.[facility] Allergies No known active allergies Active Problems Problem Noted Date Diagnosed Date Chest pain 01/26/2011 Social History Tobacco Use Types Packs/Day Years Used Date Smoking Tobacco: Never Assessed Comments Unknown Sex and Gender Information Value Date Recorded Sex Assigned at Not on file Legal Sex Female 11:37 AM SPINDLE PLUMBER Gender Identity Not on file Sexual Orientation [...] VACCINE (1 - 2023-2 5 season) 2024 HPV VACCINE (1 - 3-dose SCDM series) 2024 DEPRESSION SCREENING 10/14/2024 INFLUENZA VACCINE (#1) 2025 ZOSTER VACCINE (1 of 2) 2047 [...] patient's age to complete this topic Insurance [facility] Care Teams Boilermaker Welder Relationship Specialty Start Date End Date Arya, YULIA Hernandez-LOUIE [address] [place] [id number] PCP - General 08/23/22
--- OUTSIDE RECORDS SUMMARY | 2025-05-11 12:19 | XMS_ITS | Referral Summary ---
Author Organization [facility] Address [address] [place] [address] Care Team Providers Care Flash Developer Name Role Phone Mary Koenig NP Primary Care Provider + [phone] Kandace Ashley FRUIT PEELER Unavailable [phone] Encounters Date Type Department Care Team Description 05/07/2025 Telephone [facility] Radiology [address] [place] [address] Edna León RN 05/07/2025 Telephone [facility] Radiology [address] [place] [address] Edna León RN 04/26/2025 Telephone [facility] Radiology [address] [place] [address] Audrey Anthony, LESLIE 04/13/2025 Results Follow-Up [facility] Group Diabetes Endocrine Care at [address] [place] [address] Kary Plascencia DO T4, free, T3, free, Thyroid Function [place] 03/31/2025 3:00 PM CDT Office Visit [facility] Diabetes Endocrine Care at [address] [place] [address] Kary Plascencia DO Borderline abnormal TFTs (Primary Dx); 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 Plan of Care Documentation [facility] Physical Therapy [place] [address] 03/24/2025 11:00 AM CDT Therapy [facility] Physical Therapy [facility] [address] [place] [address] Benitez Whitlock, PT Low back pain, unspecified back pain laterality, unspecified chronicity, unspecified whether sciatica present from Last 3 Months Allergies No known active allergies Medications cyclobenzaprine [...] on file Legal Sex Female 9:38 AM ANIMAL SITTER Gender Identity Female 08/07/2021 10:07 AM CDT Sexual Orientation Not on file Last Filed Vital Signs Vital Sign Reading Time Taken Comments Blood Pressure 106/68 03/31/2025 2:50 PM CDT Pulse 86 03/31/2025 2:50 PM CDT Temperature 36.4 C (97.5 F) 11/30/2024 7:36 PM ANIMAL SITTER Respiratory Rate 16 11/30/2024 7:36 PM ANIMAL SITTER Oxygen Saturation 99% 11/30/2024 7:36 PM ANIMAL SITTER Inhaled Oxygen Concentration - - Weight 67 [...] Last 3 Months Results * Thyroid Function [place] (04/13/2025 12:32 PM CDT) TSH 2.66 mIU/L [facility] Comment: Reference Range > or = 20 Years 0.40-4.50 Ranges First trimester 0.26-2.66 Second trimester 0.55-2.73 Third trimester 0.43-2.91 Blood 04/13/2025 12:3 2 PM CDT 04/13/2025 12:33 PM CDT Narrative [facility] - 04/14/2025 9:49 AM CDT FASTING:NO FASTING: NO Kary Plascencia DO LAB BLOOD ORDERABLES Final Result Performing Organization Address [facility]/ZIP Co de Phone Number [facility] [address] [place] [address] * T3, free (04/12/2025 12:37 PM CDT) Pathologist [facility] Free T3 3.0 2.3 - 4.2 pg/mL [facility] Blood 04/12/2025 12:3 7 PM CDT 04/12/2025 12:37 PM CDT Narrative [facility] - 04/13/2025 8:01 AM CDT FASTING:NO FASTING: NO Kary Plascencia DO LAB BLOOD ORDERABLES Final Result Performing Organization Address [facility] Co de Phone Number [facility] [address] [place] [address] * T4, free (04/12/2025 12:37 PM CDT) Pathologist [facility] Free T4 1.0 0.8 - 1.8 ng/dL [facility] Blood 04/12/2025 12:3 7 PM CDT 04/12/2025 12:37 PM CDT Narrative [facility] - 04/13/2025 8:01 AM CDT FASTING:NO FASTING: NO Kary Plascencia DO LAB BLOOD ORDERABLES Final Result [facility] [address] [place] [address] from Last 3 Months Insurance [employer] [facility] [employer] Care Teams Flash Developer Relationship Specialty Start Date End Date Koenig, Mary Pike NP [address] [place] [address] PCP - General 12/14/20 Kandace Ashley NP [address] [place] [address] [place] [address] Nurse Practitioner Nurse Practitioner 05/03/25
--- OUTSIDE RECORDS SUMMARY | 2025-05-11 12:19 | XMS_ITS | Data Portability ---
Author Organization [facility], [place] Address [address] [place] [address] Care Team Providers Care Associate Sales Name Role Phone RUFINO TIRADO Primary Care Provider [phone] Assessment Encounter Date Assessment Date Assessment LastModified [...] performed today. We spent over 25 minutes [id number]. The patient was given precautions. She will [...] recorded. Lab dhea-sulfat e, serum 2024 025 [facility] (Lab), [address], [place], [address], 17:05:01 estradiol, serum 2024 025 [facility] (Lab), [address] [place], [address], 5 17:05:03 FSH (follicle-s timulating hormone), serum 2024 025 [facility] (Lab), [address], [place], [address], 5 17:05:04 HbA1c (hemoglobin A1c), blood 2024 025 [facility] (Lab), [address] [place], [address], 5 17:05:05 lh (luteinizin g hormone), serum 2024 025 [facility] (Lab), [address] [place], [address], 5 17:05:03 progesteron e, serum 2024 025 [facility] (Lab), [address] [place], [address], 5 17:05:02 prolactin, serum 2024 025 [facility] (Lab), [address] [place], [address], 5 17:05:02 shbg (sex hormone-bin ding globulin), serum 2024 025 [facility] (Lab), [address] [place], [address], 5 17:05:05 TSH, serum or plasma 2024 025 [facility] (Lab), [address] [place], [address], 5 17:05:05 testosteron e free/testos terone total, ratio, serum 2024 025 [facility] (Lab), [address] [facility], [place], [address], 5 17:05:06 ova1, serum 2023 024 GIORGI [facility] (Lab), [address], [place], [address], 4 10:48:38 Referral None recorded. Procedures None recorded. Surgeries None recorded. Imaging US, transvagina l 20[address], [address], [place], [address], 5 19:35:34 US, pelvis 2023 [address], [address], [place], [address], 4 14:34:30 US, transvagina l 2023 [address], [address], [place], [address], 4 14:34:30 Medication Orders None recorded. Patient TargetsNo targets recorded. Patient InstructionsNo instructions recorded. Reason for Referral None Reported. Results Created Date Observation Date Name Description Value Unit Range Abnormal Flag Note LastModifiedBy Organization Detail LastModifiedTime 09/17/20 24 09/17/2024 OVA 1 scan result See Scanne d Result Not Available [facility] (Lab) [address] [facility], [place], [address], 09/22/2024 10:48:38 11/20/19 25 11/20/2024 DHEA SULFA TE DHEA-sulfate 99 ug/dL Femal e Range s Age(y ) Range (ug/d L) 10-15 34-28 0 15-20 65-36 8 20-25 148-4 07 25-35 99-34 0 35-45 61-33 7 45-55 35-25 6 55-65 19-20 5 65-75 9-246 > 75 12-15 4 Not Available [facility] (Lab) [address] [place], [address], 11/29/2024 17:05:01 11/20/19 25 11/20/2024 PROLA CTIN prolactin, total 8.22 NG/mL 4.79-2 3.30 This assay was perfo rmed using [employer] ratio n reage nts and test kits. Value s obtai jia with other assay metho ds or kits canno t be used [facility] . Not Available [facility] (Lab) [address] [place], [address], 11/29/2024 17:05:02 11/20/19 25 11/20/2024 PROGE STERO NE progesterone 2.43 NG/mL This assay was perfo rmed using [employer] ratio n reage nts and test kits. Value s obtai jia with other assay metho ds or kits canno t be used [facility] . Femal e Proge stero ne Range s: Folli cular phase 0.06- 0.89 ng/mL Ovula tion phase 0.12- 12.00 ng/mL Lutea l phase 1.83- 23.90 ng/mL Postm enopa usal <0.05 -0.13 ng/mL Healt hy Pregn ant Women 1st Trime ster 11.0- 44.30 2nd Trime ster 25.40 -83.3 0 3rd Trime ster 58.70 -214. 00 Not Available [facility] (Lab) [address] [place], [address], 11/29/2024 17:05:02 11/20/19 25 11/20/2024 ESTRA DIOL estradiol 61.2 pg/mL This assay was perfo rmed using [employer] ratio n reage nts and test kits. Value s obtai jia with other assay metho ds or kits canno t be used [facility] . Femal e Estra diol Range s: Folli cular phase 12.4- 233 pg/mL Ovula tion phase 41.0- 398 pg/mL Lutea l phase 22.3- 341 pg/mL Postm enopa usal <5-13 8 pg/mL Healt hy Pregn ant Women 1st Trime ster 154-3 243 pg/mL 2nd Trime ster 1561- 71597 pg/mL 3rd Trime ster 8525- >3000 0 pg/mL Not Available [facility] (Lab) [address] [facility] [address], [place], [address], 11/29/2024 17:05:03 11/20/19 25 11/20/2024 LH (LUTE [...] use: 7.7-5 8.5 mIU/m L Not Available [facility] (Lab) [address] [place], [address], 11/29/2024 17:05:03 11/20/19 25 11/20/2024 FSH FSH [...] use: 25.8- 134.8 mIU/m L Not Available [facility] (Lab) [address] [place], [address], 11/29/2024 17:05:03 11/20/19 25 11/20/2024 T4 FREE T4, free 0.77 NG/dL 0.60-1 .40 This assay is sustim ptibl e to tereza dumont from high level s of bioti n which may false ly eleva te resul ts. Jonathan ontiveros late with clini denise findi ngs. Not Available [facility] (Lab) [address] [facility], [place], [address], 11/29/2024 17:05:04 11/20/19 25 11/20/2024 TSH, REFLE X FREE T4 TSH 5.54 uIU/m L 0.30-5 .33 high Not Available [facility] (Lab) [address] [facility] [address], [place], [address], 11/29/2024 17:05:04 11/20/19 25 11/20/2024 HUMAN SEX HORMO NE DAT NG GLOBU SIMONE sex hormone binding globulin 72.4 nmole s/L 18.2-1 35.5 Not Available [facility] (Lab) [address], [place], [address], 11/29/2024 17:05:05 11/20/19 25 11/20/2024 HEMOG LOBIN [...] >8.0% Actio n sugge sted Not Available [facility] (Lab) [address] [facility], [place], [address], 11/29/2024 17:05:05 11/20/19 25 11/20/2024 TESTO STERO [...] cteri stics have been deter mined by 20x200 alexis s [place]. It has not been clear ed or appro rebecca by the U.S. Food and Drug Admin istra tion. This assay has been valid ated pursu ant to the CLIA regul ation s and is used for clini denise purpo ses. Not Available [facility] (Lab) [address] [facility] [address], [place], [address], 11/29/2024 17:05:06 11/20/19 25 11/20/2024 TESTO STERO NE, FREE( DIALY SIS) AND TOTAL (LC/M S/MS) testosterone , free 2.6 pg/mL 0.1-6. 4 This test was devel oped and its terence tical perfo rmanc e manuel cteri stics have been deter mined by [employer] [place]. It has not been clear ed or appro rebecca by the U.S. Food and Drug Admin istra tion. This assay has been valid ated pursu ant to the CLIA regul ation s and is used for clini denise purpo ses. Perfo rming Organ izati on [facility] gamb[facility]: Site ID: [id number] Name: Hugh Pastoro ls Insti jackie Addre ss: [id number] [facility] [employer] [place], [place] Direc tor: Emma Padilla MD PhD Not Available [facility] (Lab) [address] [place], [address], 11/29/2024 17:05:06 08/27/20 24 08/27/2024 US, pelvi s No observ ation record ed. [email or web address] [place] [address], [place], [address], 08/27/2024 13:53:30 08/27/20 24 08/27/2024 US, trans vagin al No observ ation record ed. [email or web address] [place] [address], [place], [address], 08/27/2024 13:53:41 08/27/20 24 08/27/2024 US, pelvi s No observ ation record ed. [email or web address] [address], [place], [address], 08/27/2024 14:29:51 11/19/19 25 11/19/2024 US, trans vagin al No observ ation record ed. [email or web address] [place] [address], [place], [address], 11/19/2024 18:37:10 11/19/19 25 11/19/2024 US, trans vagin al No observ ation record ed. [email or web address] [address], [place], [address], 11/19/2024 22:26:51 Result Notes None recorded. Procedures Surgical History Date Name Laterality Status Provider Name and Address Organization Details Recorded Time 03/06/20 23 ROBOTIC ASSISTED HYSTERECTOMY WITH SALPINGECTOMY (SURG) completed Suly Levine [facility] 03/07/2023 10:17:56 Tubal Ligation completed [facility] 11/14/2022 11:38:53 Endometrial Ablation completed [facility] 11/14/2022 11:38:53 Caesarean Section completed [facility] 11/14/2022 11:38:53 laparoscopy completed Madyson Patel, [facility]- [address], [place], [address], [facility] 11/15/2022 14:32:29 Imaging Results None recorded. [...] Body mass index (BMI) Body weight Systolic And Diastolic Provider Name and Address Organization Details Last Updated DateTime 11/20/2024 167.64 cm 24.4 kg/m2 46837.45 g 109/74 mm[Hg] [facility] 11/20/2024 10:34:46 Date Recorded Body weight Systolic And Diastolic Provider Name and Address Organization Details Last Updated DateTime 08/21/2024 48570.31 g 103/68 mm[Hg] Geena Mina [facility] 08/21/2024 10:19:18 Date Recorded Body height Body mass index (BMI) Body weight Systolic And Diastolic Provider Name and Address Organization Details Last Updated DateTime 09/17/2024 167.64 cm 25.2 kg/m2 26282.41 g 111/75 mm[Hg] [facility] 09/17/2024 11:05:32 Social History Question Answer Notes LastModified by Organizat ion Details LastModified Time Tobacco Smoking Status Never Smoker [facility] 07/05/2023 10:12:54 Are You Blind Or [...] Or The Highest Degree You Have Received? 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 Occasional Information not available 11/14/2022 Mental Status Question Answer Note LastModified by Organization D etails LastModified Time Do you feel stressed (tense, restless, nervous, or anxious, or unable to sleep at night)? [id number] saira Information not available 11/14/2022 Family History Relationship Description Onset Age of this Age Resolved Age Notes LastModified by Organization Details LastModified Time Paternal Grandfather Malignant neoplasm of lung [email or web address] Not available 2022 10:03:27 Maternal Grandmother Disorder of thyroid gland [email or web address] Not available 2022 10:03:27 Mother Malignant tumor of breast Not available 2022 10:03:27 Medical History Condition Response Other Y Blood Transfusion N Dermatologic Disorders N Gestational Diabetes N Anxiety Disorder Y Autoimmune disease Y Arthritis N Polyps N Infertility N Acid Reflux (GERD) N Cancer N Varicosities N Stroke N Neurologic/Epilepsy N Fibromyalgia N Headaches Y Kidney Disease N Heart Problems N Kidney or Bladder Problems N Eating Disorder N Art (IVF or FET) N Hepatitis/Liver Disease N Urinary Tract Infection N Asthma N Trauma/Violence N Thrombophilias N Allergies (Food, seasonal, environmental ) N Breast Cancer N Drug/Latex Allergies/Reactions N Lung Disease N Defects or Inherited Disease N Breast Problem N Hematologic disorders N Anesthesia Complications N History of STI N Deep Vein Thrombosis N Polycystic ovary syndrome N History of abnormal pap N Endometriosis Y High Cholesterol N Thyroid Problems N GI Problems N Anemia N Psychiatric Illness N Ovarian Cancer N Diabetes N Pulmonary (TB, Asthma) N Abuse/Domestic Violence N Depression/ depression Y Pre-Eclampsia N Hypertension N Osteoporosis N Gynecological History Statement/Question Response Abnormal Pap [...] SNOMED-CT Code Diagnosis ICD10 Code Diagnosis Note [id number] MARC [facility] [address] [address] 11/14/2022 11:23:07 11/15/2022 16:42:31 Chronic pelvic pain of female 265906653 R10.2 N80.9 N94.10 N94.5 Today we discussed the following: Updating STD screenUS --release signed for recent USConsult with Dr. Kodak GRAMAJO--intergriselda marroquin in hysterecto my vs hormonal options to manage painful periods.Hx failed endometria l ablationHx failed hormonal BC optionsHx of tubal ligation Dyspareunia 74284897 N94 .10 Pursue PT pelvic floor for pelvic floor myalgia and spasticity which is common in those with hx of chronic pelvic pain/endom etriosis. Additional literature given from internatio nal pelvic pain society [id number] Nitin Candelario MD [place] [address],[place] [address] 11/29/2022 12:06:02 11/29/2022 21:36:56 [id number] Nitin Candelario MD [place] [address],[place] [address] 11/30/2022 15:56:03 11/30/2022 21:34:19 [id number] Nitin Candelario MD [place] [address],[place] [address] 12/20/2022 12:26:19 12/20/2022 14:28:45 Dysmenorrhea 184220931 N94.6 Pain in pelvis 20670329 R10.2 Dyspareunia 39789465 N94 .10 Endometrio sis of pelvis 07689138 N80.30 this patient is a 27-year-ol d [...] assisted hysterecto my with bilateral salpingect bradley. [id number] Nitin Candelario MD [place] [address],[place] [address] 02/27/2023 15:48:01 03/01/2023 10:21:29 Endometriosis of pelvis 08681835 N80.30 this patient is a 27-year-ol d female was severe pelvic pain and endometrio sis. We have agreed to perform robotic assisted hysterecto my with bilateral salpingect bradley. She understand s risks, benefits, and alternativ es. She has completed the informed consent process and is ready to proceed. Pain in pelvis 47074894 R10.2 [id number] Nitin Candelario MD [place] [address],[place] [address] 03/13/2023 10:08:25 03/13/2023 10:10:26 [id number] Nitin Candelario MD [place] [address],[place] [address] 03/13/2023 16:00:29 03/13/2023 17:06:56 Postoperative care 653942568 Z48.89 this patient is a 27-year-ol d female presents for postop follow-up. She had a incidental cystotomy. She had a cystogram today that was normal. Catheter was removed in the office. She tolerated it well. She has no complaints . We discussed her pathology report. She will follow-up as needed. Her incisions are clean dry and intact [id number] Nitin Candelario MD [place] [address],[facility] [address] 07/05/2023 10:03:14 07/05/2023 11:15:34 Dyspareunia 41686930 N94.10 Pain in pelvis 47543666 R10.2 Dysmenorrhea 599798593 N 94.6 Reduced libido 8959333 R 68.82 27-year-ol d female presents for [...] and the benefit her recent hysterecto my. [id number] Nitin Candelario MD [place] [address],[place] [address] 08/21/2024 10:09:45 08/21/2024 11:08:54 Pain in pelvis 23862561 R10.2 [id number] Nitin Candelario MD [place] [address],[place] [address] 08/27/2024 12:29:20 08/27/2024 13:11:36 Pain in pelvis 48004017 R10.2 [id number] Nitin Candelario MD [place] [address],[place] [address] 09/17/2024 11:00:39 09/17/2024 11:46:13 Cyst of ovary 09593128 N83.209 this patient is a 29-year-ol d [...] minutes on the patient's care in total. [id number] Nitin Candelario MD [place] [address] [address] 11/19/2024 10:22:15 11/19/2024 11:21:22 Cyst of right ovary 0191368085 0992097 N83.291 [id number] Nitin Candelario MD [place] [address] [address] 11/20/2024 10:27:00 11/20/2024 11:32:54 Mood disorder 85866320 F39 Cyst of ovary 55764961 N 83.209 29-year-ol d female presents for [...] Perera Member ID Guarantor Name 11/23/2024 1 [employer] [id number] Tenzin De La Cruz [id number] 3 Ankita De La Cruz 03/06/2024 1 [employer] [id number] Tenzin De La Cruz [id number] Ankita De La Cruz 11/23/2024 2 [facility] (MEDICAID HMO) [id number] 3 Ankita De La Cruz [id number] Ankita De La Cruz OBGyn Episode Ob Episode Information Episode Created Date Number of Fetuses Patient Bloodtype Patient rh Status Prepregnancy Weight lbs Domestic Partner Domestic Partner Phone Father Name Valance Cutter Status 11/14/19 23 1 CLOSED Fetus Data First Name Last Name Admitted to NICU Weight (g) Sex Living Outcome Pediatric Complications Fetus ID Race Codes Race Delivery Type 3486.76 1704 M Full Term 34847 Primary Yobani Calculation Initial Yobani Date Initial [...] Domestic Partner Domestic Partner Phone Father Name Valance Cutter Status 11/14/19 23 1 CLOSED Fetus Data First Name Last Name Admitted to NICU Weight (g) Sex Living Outcome Pediatric Complications Fetus ID Race Codes Race Delivery Type 3543.46 0704 M Full Term 90204 Repeat Yobani Calculation Initial Yobani Date Initial [...]
== END 2025-05-11 12:15 | disposition home or self-care (01) ==
LOC: ANHBWCLAB 12:15
PROVIDERS: PCP Nurse Practitioner Adult Health; Visit Provider Nurse Practitioner Adult Health
DX: E04.1 Nontoxic single thyroid nodule (principal)
CPT/HCPCS: 86376

== ENCOUNTER 2025-05-13 11:38 | Outpatient (CLI) | payer BC, OTHER, SELFPAY ==
--- OUTSIDE RECORDS SUMMARY | 2025-05-13 11:41 | XMS_ITS | Clinical Summary ---
Author Organization [facility] Address [address] [place] [address] Care Team Providers Care [id number] Armor Crewman Name Role Phone Mary Koenig ART Primary Care Provider [phone] Source Comments [facility],non-owned Affiliates and Associated Physician Practices is amultiple site organization consisting of ambulatory clinics and hospital sitesin [place], [place], [place] and [place]. This disclosure is being madepursuant to the Care Everywhere program and may not contain all information available regarding this patient. 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
--- OUTSIDE RECORDS SUMMARY | 2025-05-13 11:41 | XMS_ITS | Clinical Summary ---
Author Organization [facility] Address [address] [place] [address] Care Team Providers Care Maintenance Person Name Role Phone Mary Koenig NP Primary Care Provider + [phone] Kandace Ashley [employer] Unavailable [phone] Allergies No known active allergies Medications [...] Encounters Date Type Department Care Team Description 05/12/2025 Orders Only [facility] [address] [place] [address] Benitez Hunt MD Right thyroid nodule (Primary Dx) 05/07/2025 Telephone [facility] Radiology [address] [place] [address] Edna León RN 05/07/2025 Telephone [facility] Radiology [address] [place] [address] Edna León RN 04/26/2025 Telephone [facility]iology [address] [place] [address] Audrey Anthony RN 04/13/2025 Results Follow-Up [facility] at [address] [place] [address] Kary Plascencia DO T4, free, T3, free, Thyroid Function [place] 03/31/2025 3:00 PM CDT Office Visit [facility] at [address] [place] [address] Kary Plascencia DO Borderline abnormal TFTs (Primary Dx); 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 11:00 AM CDT Therapy [facility] [place] [address] Benitez Whitlock, JUDITH Low back pain, unspecified back pain laterality, unspecified chronicity, unspecified whether sciatica present 03/24/2025 Plan of Care Documentation [facility] [place] [id number] from Last 3 Months Surgical History Surgery [...] file Legal Sex Female 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 Gender Identity Female 08/07/2021 10:07 AM CDT Sexual Orientation Not on file Obstetrics History Last Filed Vital Signs Vital Sign Reading Time Taken Comments Blood Pressure 106/68 03/31/2025 2:50 PM CDT Pulse 86 03/31/2025 2:50 PM CDT Temperature 36.4 C (97.5 F) 11/30/2024 7:36 PM DIRECTOR [employer]ER[employer] AGENCY Respiratory Rate 16 11/30/2024 7:36 PM DIRECTOR [employer]IVATE [employer]ER[employer] AGENCY Oxygen Saturation 99% 11/30/2024 7:36 PM DIRECTOR [employer]ER[employer] AGENCY Inhaled Oxygen Concentration - - Weight 67 [...] Last 3 Months Results * Thyroid Function [place] (04/13/2025 12:32 PM CDT) TSH 2.66 mIU/L [facility] Comment: Reference Range > or = 20 Years 0.40-4.50 Ranges First trimester 0.26-2.66 Second trimester 0.55-2.73 Third trimester 0.43-2.91 Blood 04/13/2025 12:3 2 PM CDT 04/13/2025 12:33 PM CDT Narrative [facility] - 04/14/2025 9:49 AM CDT FASTING:NO FASTING: NO Kary Plascencia DO LAB BLOOD ORDERABLES Final Result [facility] [address] [address] * T3, free (04/12/2025 12:37 PM CDT) Free T3 3.0 2.3 - 4.2 pg/mL [facility] Blood 04/12/2025 12:3 7 PM CDT 04/12/2025 12:37 PM CDT Narrative [facility] - 04/13/2025 8:01 AM CDT FASTING:NO FASTING: NO [facility] Jung Plascencia DO LAB BLOOD ORDERABLES Final Result Performing Organization Address City/[facility]/ZIP Co de Phone Number [facility] [address] [address] [phone] * T4, free (04/12/2025 12:37 PM CDT) Free T4 1.0 0.8 - 1.8 ng/dL [facility] Blood 04/12/2025 12:3 7 PM CDT 04/12/2025 12:37 PM CDT Narrative [facility] - 04/13/2025 8:01 AM CDT FASTING:NO FASTING: NO [place] Jung Plascencia DO LAB BLOOD ORDERABLES Final Result Performing Organization Address City/[facility] Co de Phone Number [facility] [address] [phone] from Last 3 Months Insurance [employer] [facility] [employer] Care Teams Maintenance Person Relationship Specialty Start Date End Date Mary Koenig NP [address] [place] [address] PCP - General 12/14/20 Kandace Ashley NP [address] [place] [address] [place] [address] Nurse Practitioner Nurse Practitioner 05/03/25
--- OUTSIDE RECORDS SUMMARY | 2025-05-13 11:41 | XMS_ITS | Encounter Summary ---
Author Organization [facility] Address [address] [place] [address] Phone Care Team Providers Care Internal Combustion Engine Assembler Name Role Phone Koenig, Mary Pike HAT FINISHER Primary Care Provider + [phone] Kandace Ashley HAT FINISHER Unavailable [phone] Reason for Referral * Diagnostic Imaging (Routine) - Pending Review Specialty Diagnoses / Procedures Referred By Mike bourne Referred To Contact Diagnoses Right thyroid nodule Procedures US Guided Thyroid Fine Needle Aspiration 1st Lesion Benitez Hunt MD [address] [place] [address] Phone: tel: fax: [facility] (All Locations) Referral ID Status Reason Start Date Expiration Date V isits Requested Visits Authorized [id number] Pending Review 05/12/2025 06/11/2026 1 1 Encounter Details Date Type Department Care Team (Late st Contact Info) Description 05/12/2025 Orders Only [facility] Surgery [address] [facility] Floor 8 [place] [address] Benitez Hunt MD [address] [place] [address] Right thyroid nodule (Primary Dx) Social History Tobacco Use Types Packs/Day Years [...] on file 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 Author [facility] No Rosina Cormier, RN Note: Hold son for extended period of time, exercise with minimal to no pain. documented as of this encounter Visit Diagnoses Diagnosis Right thyroid nodule- Primary documented in this encounter Care Teams Internal Combustion Engine Assembler Relationship Specialty Start Date End Date Mary Koenig NP [address] [place] [address] PCP - General 12/14/20 Kandace Ashley NP [address] [place] [address] [place] [address] Nurse Practitioner Nurse Practitioner 05/03/25 documented as of this encounter
--- OUTSIDE RECORDS SUMMARY | 2025-05-13 11:41 | XMS_ITS | Encounter Summary ---
Author Organization [facility] Address [address] [place] [address] Care Team Providers Care Senior Naval Parachutist Name Role Phone Mary Koenig DATA SERVICES DEVELOPER Primary Care Provider + [phone] Kandace Ashley DATA SERVICES DEVELOPER Unavailable [phone] Encounter Details Date Type Department Care Team (Late st Contact Info) Description 04/26/2025 Telephone 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 She also stated she had called [...] needed, and agreed to [facility] get required information to get her [...] pt asking about getting a biopsy at [facility]. Stated she had her US at [facility] and was scheduled for a biopsy there, but they could not get her scheduled until 06/22/25. Called pt and relayed that will all things in place we could get her in sooner than current date. Reviewed process for outside imaging upload, review process, consult fee. She agreed to proceed. Called referring office (Dr Linder--[phone] Option 4) and LVM asking for return [...] on filedocumented in this encounter Care Teams Senior Naval Parachutist Relationship Specialty Start Date End Date Koenig, Mary Pike NP [address] [place] [address] PCP - General 12/14/20 Kandace Ashley NP [address] [place] [address] [place] [address] Nurse Practitioner Nurse Practitioner 05/03/25 documented as of this encounter
--- OUTSIDE RECORDS SUMMARY | 2025-05-13 11:41 | XMS_ITS | Clinical Summary ---
Author Organization [facility] Address [address] [facility] [place] [address] Phone Care Team Providers Care Certified Medical Biller Name Role Phone Brett Koenigdarlene BENDER CNP Primary Care Provider [phone] Allergies No known active allergies Medications triamcinolone [...] Comments Blood Pressure 118/67 11/30/2024 10:45 PM MARINE OPERATIONS COORDINATOR Pulse 93 11/30/2024 10:45 PM MARINE OPERATIONS COORDINATOR Temperature 36.7 C (98.1 F) 11/30/2024 10:03 PM MARINE OPERATIONS COORDINATOR Respiratory Rate 17 11/30/2024 10:45 PM MARINE OPERATIONS COORDINATOR Oxygen Saturation 100% 11/30/2024 10:45 PM MARINE OPERATIONS COORDINATOR Inhaled Oxygen Concentration - - Weight 68 kg (150 lb) 11/30/2024 10:03 PM MARINE OPERATIONS COORDINATOR Height 167.6 cm (5' 6) 11/30/2024 10:03 PM MARINE OPERATIONS COORDINATOR Body Mass Index 24.21 11/30/2024 10:03 PM MARINE OPERATIONS COORDINATOR Plan of Treatment Health Maintenance Due [...] to complete this topic Insurance MEDICAID [facility] Care Teams Certified Medical Biller Relationship Specialty Start Date End Date Mary Koenig APRN, AUTOMOBILE DEALER [address] [place] [address] PCP - General Family Medicine 04/29/20
--- OUTSIDE RECORDS SUMMARY | 2025-05-13 11:41 | XMS_ITS | Referral Summary ---
Author Organization [facility] Address [address] [place] [address] Care Team Providers Care Silk Screen Processor Name Role Phone Mary Koenig NP Primary Care Provider + [phone] Kandace Ashley ACCOUNT MANAGER EMPLOYEE BENEFITS Unavailable Encounters Date Type Department Care Team Description 05/12/[address] [facility] Surgery [facility] Floor 8 [place] [address] Benitez Hunt MD Right thyroid nodule (Primary Dx) 05/07/2025 Telephone [facility] Radiology 1 [place] [address] Edna León RN 05/07/2025 Telephone [facility] Radiology 1 [place] [address] Edna León RN 04/26/2025 Telephone [facility] Radiology 1 [place] [address] Audrey Anthony RN 04/13/2025 Results Follow-Up [facility] Medical Group Diabetes Endocrine Care at [address] [place] [address] Kary Plascencia DO T4, free, T3, free, Thyroid Function [place] 03/31/2025 3:00 PM CDT Office Visit [facility] Medical Group Diabetes Endocrine Care at [address] [place] [address] Kary Plascencia DO Borderline abnormal TFTs (Primary Dx); 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 Plan of Care Documentation [facility] Physical Therapy [facility] [place] [address] 03/24/2025 11:00 AM CDT Therapy [facility] Physical [place] [address] Benitez Whitlock, PT Low back pain, unspecified [...] on file Legal Sex Female 9:38 AM WET ROASTER Gender Identity Female 08/07/2021 10:07 AM CDT Sexual Orientation Not on file Last Filed Vital Signs Vital Sign Reading Time Taken Comments Blood Pressure 106/68 03/31/2025 2:50 PM CDT Pulse 86 03/31/2025 2:50 PM CDT Temperature 36.4 C (97.5 F) 11/30/2024 7:36 PM WET ROASTER Respiratory Rate 16 11/30/2024 7:36 PM WET ROASTER Oxygen Saturation 99% 11/30/2024 7:36 PM WET ROASTER Inhaled Oxygen Concentration - - Weight 67 [...] Last 3 Months Results * Thyroid Function [place] (04/13/2025 12:32 PM CDT) TSH 2.66 mIU/L [facility] Comment: Reference Range > or = 20 Years 0.40-4.50 Ranges First trimester 0.26-2.66 Second trimester 0.55-2.73 Third trimester 0.43-2.91 Blood 04/13/2025 12:3 2 PM CDT 04/13/2025 12:33 PM CDT Narrative [facility] - 04/14/2025 9:49 AM CDT FASTING:NO FASTING: NO Kary Plascencia LAB BLOOD ORDERABLES Final Result Performing Organization Address [facility]/ZIP Co de Phone Number [facility] [address] [place] [address] * T3, free (04/12/2025 12:37 PM CDT) Free T3 3.0 2.3 - 4.2 pg/mL [facility] Blood 04/12/2025 12:3 7 PM CDT 04/12/2025 12:37 PM CDT Narrative [facility] - 04/13/2025 8:01 AM CDT FASTING:NO FASTING: NO Kary Plascencia DO LAB BLOOD ORDERABLES Final Result [facility] [address] [place] [address] * T4, free (04/12/2025 12:37 PM CDT) Free T4 1.0 0.8 - 1.8 ng/dL [facility] Blood 04/12/2025 12:3 7 PM CDT 04/12/2025 12:37 PM CDT Narrative [facility] - 04/13/2025 8:01 AM CDT FASTING:NO FASTING: NO Kary Steenel DO LAB BLOOD ORDERABLES Final Result [facility] [address] [place] [address] from Last 3 Months Insurance [employer] [facility] BLUE ACCESS OOS Care Teams Silk Screen Processor Relationship Specialty Start Date End Date Mary Koenig NP [address] [place] [address] PCP - General 12/14/20 Kandace Ashley NP [address] [place] [address] [place] [address] Nurse Practitioner Nurse Practitioner 05/03/25
== END 2025-05-13 11:39 | disposition home or self-care (01) ==
LOC: ANHBWCLAB 11:40
PROVIDERS: PCP Nurse Practitioner Adult Health; Visit Provider Nurse Practitioner Adult Health
DX: E07.9 Disorder of thyroid, unspecified (principal)
CPT/HCPCS: 84445

== ENCOUNTER 2025-06-09 12:30 | Outpatient (CLI) | payer BC, OTHER, SELFPAY ==
--- OUTSIDE RECORDS SUMMARY | 2025-06-09 12:32 | XMS_ITS | Encounter Summary ---
Author Organization [facility] Address [address] [place] [address] Care Team Providers Care New Vehicle Sales Consultant Name Role Phone Mary Koenig ACCOUNT EXECUTIVE METALWORKING Primary Care Provider + [phone] Kandace Ashley ACCOUNT EXECUTIVE METALWORKING Unavailable [phone] Encounter Details Date Type Department Care Team (Late st Contact Info) Description 06/04/2025 Results Follow-Up [facility] [address] [address] Alysha Johnson MD [address] [place] [address] Volume and period, urine, 24 hour Social History Tobacco Use Types Packs/Day Years [...] more points, staff should administer the PHQ-9) 4 05/21/2025 Comments No Sex and Gender Information Value Date Recorded Sex Assigned at Not on file Legal Sex Female 9:38 AM PIPE CUTTER Gender Identity Female 08/07/2021 10:07 AM CDT [...] on filedocumented in this encounter Care Teams New Vehicle Sales Consultant Relationship Specialty Start Date End Date Mary Koenig NP [address] [place] [address] PCP - General 12/14/20 Kandace Ashley NP [address] [place] [address] [place] [address] Nurse Practitioner Nurse Practitioner 05/03/25 documented as of this encounter
--- OUTSIDE RECORDS SUMMARY | 2025-06-09 12:32 | XMS_ITS | Clinical Summary ---
Author Organization [facility] Address [address] [facility] [place] [address] Phone Care Team Providers Care Financial Services Assistant Name Role Phone Brett Koenigdarlene BENDER CNP Primary Care Provider [phone] Allergies No known active allergies Medications triamcinolone [...] Comments Blood Pressure 118/67 11/30/2024 10:45 PM BARREL LOADER AND CLEANER Pulse 93 11/30/2024 10:45 PM BARREL LOADER AND CLEANER Temperature 36.7 C (98.1 F) 11/30/2024 10:03 PM BARREL LOADER AND CLEANER Respiratory Rate 17 11/30/2024 10:45 PM BARREL LOADER AND CLEANER Oxygen Saturation 100% 11/30/2024 10:45 PM BARREL LOADER AND CLEANER Inhaled Oxygen Concentration - - Weight 68 kg (150 lb) 11/30/2024 10:03 PM BARREL LOADER AND CLEANER Height 167.6 cm (5' 6) 11/30/2024 10:03 PM BARREL LOADER AND CLEANER Body Mass Index 24.21 11/30/2024 10:03 PM BARREL LOADER AND CLEANER Plan of Treatment Health Maintenance Due Date Last Done Comments Hepatitis C Virus (HCV) Screening 1997 Hepatitis B Immunization (1 of 3 - 19+ 3-dose series) 2016 SARS-COV-2 Immunization ( - 2023- season) 2024 Human Papillomavirus (HPV) Immunization (1 - 3-dose SCDM series) 2024 Influenza Immunization (#1) 06/14/202506/15, 09/20/2020, 07/08/2019 [...] to complete this topic Insurance MEDICAID [facility] Care Teams Financial Services Assistant Relationship Specialty Start Date End Date Mary Koenig APRN, SALES MERCHANDISE ASSOCIATE [address] [place] [address] PCP - General Family Medicine 04/29/20
--- OUTSIDE RECORDS SUMMARY | 2025-06-09 12:32 | XMS_ITS | Encounter Summary ---
Author Organization [facility] Address [address] [place] [address] Phone Care Team Providers Care Social Media Sr Strategy Manager Name Role Phone Arya, Mary Pike STEEL MANAGER Primary Care Provider [phone] Kandace Ashley STEEL MANAGER Unavailable [phone] Encounter Details Date Type Department Care Team (Late st Contact Info) Description 05/13/2025 Results Follow-Up [facility] Medicine Surgery [address] [facility] [address] [place] [address] Benitez Hunt MD [address] [place] [address] [place] Outside Consult Social History Tobacco Use Types Packs/Day Years [...] on file Legal Sex Female 9:38 AM FIXTURE MAKER Gender Identity Female 08/07/2021 10:07 AM CDT [...] on filedocumented in this encounter Care Teams Social Media Sr Strategy Manager Relationship Specialty Start Date End Date Arya, Mary Pike NP [address] [place] [address] PCP - General 12/14/20 Kandace Ashley NP [address] [place] [address] [place] [address] Nurse Practitioner Nurse Practitioner 05/03/25 documented as of this encounter
--- OUTSIDE RECORDS SUMMARY | 2025-06-09 12:32 | XMS_ITS | Clinical Summary ---
Author Organization [facility] Address [address] [place] [address] Care Team Providers Care Leadership Program Associate Name Role Phone Mary Koenig ART Primary Care Provider [phone] Source Comments [facility],non-owned Affiliates and Associated Physician Practices is amultiple site organization consisting of ambulatory clinics and hospital sitesin [place], [place], [place] and [place]. This disclosure is being madepursuant to the Care Everywhere program and may not contain all information available regarding this patient. Last updated 18.[facility] Allergies No known active allergies Active Problems Problem Noted Date Diagnosed Date Chest pain 01/26/2011 Social History Tobacco Use Types Packs/Day Years Used Date Smoking Tobacco: Never Assessed Comments Unknown Sex and Gender Information Value Date Recorded Sex Assigned at Not on file Legal Sex Female 11:37 AM PROPERTY CLERK Gender Identity Not on file Sexual [...] patient's age to complete this topic Insurance [facility] Care Teams Leadership Program Associate Relationship Specialty Start Date End Date Arya, YULIA Hernandez-LOUIE [address] [place] [address] PCP - General 08/23/22
--- OUTSIDE RECORDS SUMMARY | 2025-06-09 12:32 | XMS_ITS | Patient Health Record ---
Author Organization [facility] Address [address] [facility] JOSE ALEJANDRO Shah [id number] Care Team Providers Care Back Seam Stitcher Name Role Phone Christi Khan Unavailable [phone] Allergies No Known Allergies Reason For Referral No Information Medications Medication SIG (Take, Route, Frequency, Duration) Notes Start Date End Date Status ARIPiprazole 15 MG Tablet 1 tablet Orall y Once a day Active Propranolol HCl 10 MG Tablet 1 tablet on an empty stomach Orally every 12 hrs; Duration: 90 days Active busPIRone HCl 7.5 MG Tablet 1 tablet Ora lly Twice a day Active Gabapentin 300 MG Capsule 1 capsule Oral ly Once a day Active cloNIDine 0.1 MG/24HR Patch Weekly 1 patch to skin Transdermal Active Sertraline HCl 100 MG Tablet 1 tablet Orally Once a day Active Sertraline HCl 50 MG Tablet 1 tablet Ora lly Once a day Active Social History Section Notes: tobacco: no alcohol: no caffeine: yes, daily Problems Problem Type SNOMED Code ICD Code Onset Dates Problem Status W/U Status Risk Notes Problem Autoimmune thyroiditis (22659926) Autoimmune thyroiditis (E06.3) Active confirmed Problem Vitamin D deficiency (50296231) Vitamin D deficiency, unspecified (E55.9) Active confirmed Problem Overweight (066288673) Overweight (E66.3) Active confirmed Problem Endometriosis (506965166) Endometriosis (N80.9) Active confirmed Problem Thyroid nodule (602619213) Thyroid nodule (E04.1) Active confirmed Problem Hypothyroidism (19689228) Hypothyroidism (E03.9) Active confirmed Vital Signs Heart Rate 91 /min 05/14/2025 Height-cm 167.64 cm 05/14/2025 Oximetry 99 % 05/14/2025 Blood pressure diastolic 73 mm Hg 05/14/2025 Weight-kg 70.31 kg 05/14/2025 Height 66 in 05/14/2025 Blood pressure systolic 105 mm Hg 05/14/2025 Weight 155.0 lbs 05/14/2025 BMI 25.01 kg/m2 05/14/2025 Encounters Encounter Location Date Provider Diagnosis [facility] [address] [address] [place] [address] 05/14/2025 Christi Khan Overweight E66.3 ; Autoimmune thyroiditis E06.3 ; Other fatigue R53.83 ; Vitamin D deficiency, unspecified E55.9 ; Thyroid nodule E04.1 and Dietary counseling and surveillance Z71.3 Assessments Encounter Date Diagnosis (ICD Code) Assessment Notes Treatment Notes Treatment Clinical Notes Section Notes 05/14/2025 Autoimmune thyroiditis (ICD-10 - E06.3) 05/14/2025 Overweight (ICD-10 - E66.3) 05/14/2025 Other fatigue (ICD-10 - R53.83) 05/14/2025 Vitamin D deficiency, unspecified (ICD-10 - E55.9) 05/14/2025 Thyroid nodule (ICD-10 - E04.1) 05/14/2025 Dietary counseling and surveillance (ICD-10 - Z71.3) Spent 15 minutes preventative counseling patient on dietary recommendations and changes in setting of hyperglycemia- need to restrict refined sugars and processed foods and incorporate up to 150 minutes of moderate level activity weekly. 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 Recent labs show TSH of 4.66, free T4 of 1, and free T3 of 3. Thyroid ultrasound reveals a 1.7 cm heterogeneous nodule in the right lower pole. Patient reports symptoms consistent with thyroid dysfunction, including heart palpitations, dizziness, and anxiety. 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 These symptoms may be related to thyroid dysfunction, but are likely exacerbated by daily consumption of energy drinks high in caffeine. No history of asthma reported.Plan:- Discontinue energy drinks- Prescribe propranolol 10 mg PRN for acute tachycardia and anxiety - Take if heart rate is 90 or higher, up to twice daily - Do not take if heart rate is under 70- Educate on risks and benefits of beta-santhosh use Weight ManagementAssessmen t: Patient reports significant weight loss from 238 lbs to 158 lbs while on tirzepatide. Current dose is 100 units. Patient is skipping breakfast, which may contribute to metabolic imbalances and exacerbate symptoms.Plan:- Continue tirzepatide at current dose- Recommend protein shake for breakfast- Provide dietary guidance for balanced nutrition while on GLP-1 agonist- Order insulin level and cortisol tests to assess metabolic status- Educate on importance of maintaining adequate caloric intake Post-Hysterectomy ManagementAssessmen t: Patient underwent partial hysterectomy in 2022 for endometriosis and adenomyosis. Currently not experiencing hot flashes or night sweats, but at risk for early menopause symptoms in mid to late thirties.Plan:- Monitor for menopausal symptoms- Discuss potential need for hormone replacement therapy in the future Spent 45 minutes preparing to see the patient (ex review of tests/chart), obtaining and / or reviewing separately obtained history, performing a medically appropriate examination and/or evaluation, counseling and educating the patient/family/palliative care nurse practitioner, ordering medications, tests, or procedures, referring and communicating with other health rn complex care, documenting clinical information in the electronic or other health record, independently interpreting results and communicating results to the patient/family/palliative care nurse practitioner and care coordinating patient plan. Patient alert and oriented x 4 and aware of discussion noted above and in agreeance to plan in management of weight management, autoimmune thyroiditis, palpitations/anxiet y, fatigue, thyroid nodule and other hormonal concerns. Plan Of Treatment Next Appt Details Provider Name:Christi Khan, 11:00:00 AM, [address] [place] [address], [place], [address], Insurance Providers Payer Name Payer Address Payer Phone Subscriber Number Group Number Insured Name Patient Relationship to Insured Coverage Start Date Coverage End Date [facility] [address] [place] [address] [id number] ELSIE DE LA CRUZ Self - patient is the insured [address] [id number] ELSIE DE LA CRUZ Self - patient is the insured Medical (General) History Medical History History ICD Code Hypothyroidism E03.9 Endometriosis N80.9 Surgical History Surgery Date(Month/Year) multiple surgeries for endometriosis c-sections X2 tubal ligation partial hysterectomy
--- OUTSIDE RECORDS SUMMARY | 2025-06-09 12:32 | XMS_ITS | Clinical Summary ---
Author Organization [facility] Address [address] [place] [address] Care Team Providers Care Press Washer Name Role Phone Mary Koenig NP Primary Care Provider + [phone] Kandace Ashley WATER MANAGER Unavailable [phone] Allergies No known active allergies Medications [...] TIRZEPATIDE SUBQ Inject under the skin Active LORazepam (ATIVAN) 1 mg tablet TAKE 1 TABLET EVERY DAY BY ORAL ROUTE NEEDED FOR 30 DAYS, FOR BREAKTHROUGH ANXIETY. 5 Active ARIPiprazole (ABILIFY) 15 mg tablet Take 0.5 tablets (7.5 mg total) by mouth daily 5 Active sertraline (ZOLOFT) 50 mg tablet Take 1 tablet (50 mg total) by mouth daily 5 Active Active Problems Problem Noted Date Diagnosed Date Pete thyroiditis 05/21/2025 Assessment & Plan (05/21/2025 10:00 AM CDT): Her labs were reviewed with the patient, patient has positive TPO antibodies, consistent with her diagnosis of Pete thyroiditis however her last TSH was 2.6, biochemically patient is euthyroid. It was discussed with the patient the positive antibodies does not mean that she needs to start treatment when biochemically she is euthyroid however It does increase her risk of developing hypothyroidism later in her life, so she will need close monitoring. will get TSH with reflex free T4 in 3 months. Orders: TSH W/REFL FT4; Future Palpitation 05/21/2025 Assessment & Plan (05/21/2025 10:00 AM CDT): We had a long discussion regarding her palpitations and anxiety. All of her medications and labs were reviewed with the patient. Her orthostatic vitals were obtained her blood pressure and heart rate stayed stable. Since biochemically patient is euthyroid her symptoms are not related to thyroid issues. patient is currently on semaglutide which has known side effect of dizziness and palpitation, patient gets semaglutide online, I suggested to hold semaglutide for at least 2 weeks, to rule out the semaglutide related tachycardia and dizziness, meanwhile will get morning cortisol and 24 hour urine free metanephrine, to rule out other etiologies of her symptoms. She will continue to work with her primary care for further evaluation of her palpitations. She will follow-up with her psychiatrist and therapist for her anxiety and depression. Orders: Cortisol; Future Comprehensive metabolic panel; Future Metanephrines, urine, 24 hour; Future Thyromegaly 05/21/2025 Assessment & Plan (05/21/2025 9:18 AM CDT): Thyroid palpable, her thyroid ultrasound was reviewed with the patient, she has multiple subcentimeter nodules, does not meet criteria for FNA. Denies any compression symptoms. Thyroid ultrasound as needed BMI 39.0-39.9,adult 08/11/2021 Sacroiliitis 02/23/2021 Chronic left-sided low back pain without sciatic a 02/23/2021 DDD (degenerative disc disease), lumbar 02/24/20 Dysmenorrhea 06/05/2016 Viral upper respiratory tract infection 05/06/20 16 Overview (01/16/2017): Viral upper respiratory tract infection Pharyngitis 05/06/2016 Overview (01/16/2017): Pharyngitis, unspecified etiology Chest pain 01/26/2011 Encounters Date Type Department Care Team Description 06/04/2025 Results Follow-Up [facility] [address] [phone] Alysha Johnson MD Volume and period, urine, 24 hour 06/03/2025 8:22 AM CDT - 06/03/2025 11:59 PM CDT Hospital Encounter [facility] [address] [place] [phone] Palpitation Discharge Disposition: Discharge to home or self care 05/24/2025 Results Follow-Up [facility] [address] [phone] Vera Lewis MA Comprehensive metabolic panel, Cortisol, eGFR 05/21/2025 9:10 AM CDT Lab [address] [address] Palpitation 05/21/2025 8:00 AM CDT Office Visit [facility] [address] [phone] Alysha Johnson MD Pete thyroiditis (Primary Dx); Palpitation; Thyromegaly 05/20/2025 2:30 PM CDT Office Visit [facility] [address] [place] [address] [address] [place] [address] Benitez Hunt MD Thyroid nodule 05/20/2025 Telephone [facility] [address], [place] [address] Alysha Johnson MD friendly reminder 05/20/2025 [facility] [address] [place] [phone] Benitez Hunt MD Thyroid nodule (Primary Dx) 05/20/2025 [facility] [address] [place] [phone] Benitez Hunt MD Thyroid nodule (Primary Dx) 05/19/2025 7:19 AM CDT - 05/19/2025 11:59 PM CDT Hospital Encounter [facility] [address] [place] [address] Thyroid nodule Discharge Disposition: Discharge to home or self care 05/17/2025 Telephone [facility] [address] [place] [address] Edna León RN 05/14/2025 [facility] [address] [place] [phone] Benitez Hunt MD Thyroid nodule (Primary Dx) 05/13/2025 12:44 PM CDT - 05/13/2025 11:59 PM CDT Hospital Encounter [facility] [address] [place] [address] Discharge Disposition: Discharge to home or self care 05/13/2025 Results Follow-Up [facility] [address] [place] [address] [address] [place] [address] Benitez Hunt MD US Outside Consult 05/12/2025 Orders Only [facility] [address] [place] [address] 8 [place] [address] Benitez Hunt MD Right thyroid nodule (Primary Dx) 05/07/2025 Telephone [facility] [address] [place] [address] Edna León RN 05/07/2025 Telephone [facility] [address] [place] [address] Edna León RN 04/26/2025 Telephone [facility] [address] [place] [address] Audrey Anthony RN 04/13/2025 Results Follow-Up [facility] at [address] [place] [phone] Kary Plascencia, T4, free, T3, free, Thyroid Function Nobles 03/31/2025 3:00 PM CDT Office Visit [facility] at [address] [place] [phone] Kary Plascencia DO Borderline abnormal TFTs (Primary Dx); 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 11:00 AM CDT Therapy [facility] [place] [address] Benitez Whitlock, PT Low back pain, unspecified back pain laterality, unspecified chronicity, unspecified whether sciatica present 03/24/2025 Plan of Care Documentation [facility] [place] [address] from Last 3 Months Surgical History Surgery [...] on file 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 Gender Identity Female 08/07/2021 10:07 AM CDT Sexual Orientation Not on file Obstetrics History Last Filed Vital Signs Vital Sign Reading Time Taken Comments Blood Pressure 118/78 05/21/2025 8:09 AM CDT Pulse 112 05/21/2025 8:09 AM CDT Temperature 36.4 C (97.6 F) 05/21/2025 8:09 AM CDT Respiratory Rate 18 05/20/2025 2:31 PM CDT Oxygen Saturation 100% 05/20/2025 2:31 PM CDT Inhaled Oxygen Concentration - - Weight 71.9 kg (158 lb 9.6 oz) 05/21/2025 8:09 A M CDT Height 167.6 cm (5' 5.98) 05/21/2025 8:09 AM CD T Body Mass Index 25.61 05/21/2025 8:09 AM CDT Plan of Treatment Health Maintenance Due Date Last Done Comments Hepatitis C Screening 1997 DTaP/Tdap/Td Vaccine (1 - Tdap) 2008 Varicella Vaccines (1 of 2 - 13+ 2-dose series) 2010 Hepatitis B Screening 2015 Regular Well Visit/Exam 18-64 2015 Pneumococcal vaccine <65 (1 of 2 - PCV) 2016 HPV Vaccines (1 - 3-dose SCDM series) 2024 Influenza Vaccine (#1) 2025 09/20/2020, 2018 Depression Screening 05/21/2026 05/21/2025, 02/23/2021, 02/23/2021 Goals Goal Patient Goal Type Associated Problems Recent Progress Patient-Stated? Author [facility] Rosina Guthrie, RN Note: Hold son for extended period of time, exercise with minimal to no pain. Procedures Procedure Name Priority Date/Time Associated Diagnosis Comments VOLUME AND PERIOD, URINE, 24 HOUR Routine 06/03/2025 10:27 AM CDT Palpitation EGFR Routine 05/21/2025 9:15 AM CDT Palpitation CORTISOL Routine 05/21/2025 9:15 AM CDT Palpitation COMPREHENSIVE METABOLIC PANEL Routine 05/21/2025 9:15 AM CDT Palpitation US THYROID Schedule Routine, Read Routine (OP Routine) 05/19/2025 8:30 AM CDT Thyroid nodule US OUTSIDE CONSULT Routine 05/13/2025 12 :44 PM CDT THYROID FUNCTION CASCADE Routine 04/13/2025 12:32 PM CDT Borderline abnormal TFTs T3, FREE Routine 04/12/2025 12:37 PM CDT Borderline abnormal TFTs T4, FREE Routine 04/12/2025 12:37 PM CDT Borderline abnormal TFTs from Last 3 Months Results * Volume and period, urine, 24 hour (06/03/2025 10:27 AM CDT) Volume, ur 1,275 mL Comment:Testing performed by : [facility], [address] [place] [address]., [id number] Period, Urine Collection 1,440 min [facility] (SUSAN) Comment:Testing performed by : [facility], [address] [place] [address]., [id number] Urine 06/03/2025 10:2 7 AM CDT 06/03/2025 12:28 PM CDT us Alysha Johnson MD LAB URINE ORDERABLES Final Resul t [facility] (SUSAN) 1 [facility] [place] [address] * eGFR (05/21/2025 9:15 AM CDT) eGFR >90 >=60 mL/min/1. 73 m2 Comment: Interpretive Data Reference Interval Normal >/= 90 mL/min/1.73m2 Mildly decreased* 60 - 89 mL/min/1.73m2 Mildly to moderately decreased 45 - 59 mL/min/1.73m2 Moderately to severely decreased 30 - 44 mL/min/1.73m2 Severely decreased 15 - 29 mL/min/1.73m2 Kidney Failure < 15 mL/min/1.73m2 *Relative to young adult level Estimated glomerular filtration rate is determined by the 2020 CKD-EPI equation recommended by the National Kidney Foundation (A Unifying Approach to GFR Estimation: Recommendations of the NKF-ASK Task Force on Reassessing the Inclusion of Race in Diagnosing Kidney Disease, JASN 202). The CKD-EPI equation should not be used for patients with unstable renal function and has not been validated in children and those over 70. Current interpretive data was last reviewed 2021. Blood 05/21/2025 9:15 AM CDT 05/21/2025 12:03 PM CDT Alysha Johnson MD LAB BLOOD ORDERABLES Final Resul t Performing Organization Address [facility] Co de Phone Number [facility] [address] [place], [place] [phone] * Cortisol (05/21/2025 9:15 AM CDT) Cortisol 7.7 4.8 - 19.5 mcg/dl Comment: Interpretive Data Normal Range: 4.8 - 19.5 mcg/dL; Evening: Half of morning value. This analyte undergoes marked diurnal variation. Ranges indicated apply to morning specimens. Current interpretive data was last revised 2018. Blood 05/21/2025 9:15 AM CDT 05/21/2025 11:48 AM CDT Alysha Johnson MD LAB BLOOD ORDERABLES Final Resul t Performing Organization Address [facility] Co de Phone Number [facility] [address] [place], [place] [phone] * (ABNORMAL) Comprehensive metabolic panel (05/21/2025 9:15 AM CDT) Sodium 140 135 - 145 mmol/L Potassium, pl 3.9 3.3 - 4.9 mmol/L [facility] Chloride 105 97 - 110 mmol/L [facility] CO2 26 22 - 32 mmol/L [facility] Anion gap 9 2 - 15 mmol/L [facility] BUN 8 6 - 25 mg/dL [facility] Creatinine 0.72 0.60 - 1.10 mg/dL [facility] Glucose 69(L) 70 - 199 mg/dL [facility] Comment: Interpretive Data Fasting glucose >/= 126 mg/dl is diagnostic for diabetes. Fasting is defined as no caloric intake for at least 8 hours. Fasting glucose between 100 mg/dl to 125 mg/dl is diagnostic of prediabetes. In a patient with classic symptoms of hyperglycemia or hyperglycemic crisis, a random glucose >/= 200 mg/dl is diagnostic for diabetes. In the absence of unequivocal hyperglycemia, results should be confirmed by repeat testing. The classification and Diagnosis of Diabetes Diabetes Care 202; 46: S19-S40. Current interpretive data was last revised 2022. Calcium 9.6 8.5 - 10.3 mg/dL [facility] Bilirubin, total 0.7 0.1 - 1.2 mg/dL [facility] Protein, pl 7.8 6.5 - 8.5 g/dL [facility] Albumin 4.8 3.5 - 5.0 g/dL [facility] Alk phos 50 40 - 130 Units/L [facility] ALT 11 7 - 45 Units/L [facility] AST 19 10 - 45 Units/L [facility] Blood 05/21/2025 9:15 AM CDT 05/21/2025 11:48 AM CDT us Alysha Johnson MD LAB BLOOD ORDERABLES Final Resul t [facility] [address] [address] Department [place] [address] * US Thyroid (05/19/2025 8:30 AM CDT) Anatomical Region Laterality Modality Head and Neck N/A Ultrasound 05/19/2025 9:18 AM CDT Impressions 05/19/2025 10:21 AM CDT 1. Findings compatible with thyroiditis. Correlate with thyroid function tests. 2. No distinct nodules for biopsy. Dictated by: Patrick Nelson M.D. The radiology attending physician has personally reviewed this study, and had reviewed and/or edited this written report and agrees with it. Electronically signed by: Dion Kearns M.D. Narrative 05/19/2025 10:21 AM CDT EXAMINATION: THYROID SONOGRAM HISTORY: Possible thyroid nodule. COMPARISON: None FINDINGS: The thyroid is slightly enlarged in size. Size right lobe: 5.2 cm craniocaudal, 1.7 cm transverse, 1.9 cm AP. Size left lobe: 5 cm craniocaudal, 1.7 cm transverse, 1.9 cm AP. Size isthmus: 0.3 cm AP. The thyroid gland is hypoechoic and diffusely heterogeneous in echotexture with multiple hypoechoic micronodules. There is also a marked hypervascularity of the thyroid gland. No distinct nodules. Procedure Note Dion Kearns MD - 05/19/2025 EXAMINATION: THYROID SONOGRAM HISTORY: Possible thyroid nodule. COMPARISON: None FINDINGS: The thyroid is slightly enlarged in size. Size right lobe: 5.2 cm craniocaudal, 1.7 cm transverse, 1.9 cm AP. Size left lobe: 5 cm craniocaudal, 1.7 cm transverse, 1.9 cm AP. Size isthmus: 0.3 cm AP. The thyroid gland is hypoechoic and diffusely heterogeneous in echotexture with multiple hypoechoic micronodules. There is also a marked hypervascularity of the thyroid gland. No distinct nodules. IMPRESSION: 1. Findings compatible with thyroiditis. Correlate with thyroid function tests. 2. No distinct nodules for biopsy. Dictated by: Patrick Nelson M.D. The radiology attending physician has personally reviewed this study, and had reviewed and/or edited this written report and agrees with it. Electronically signed by: Dion Kearns M.D. us Benitez Hunt MD IMG US PROCEDURES Final Result * US Outside Consult (05/13/2025 12:44 PM CDT) Anatomical Region Laterality Modality Ultrasound 05/13/2025 2:2 3 PM CDT Impressions 05/13/2025 2:35 PM CDT Available images are not adequate for interpretation or to determine need for thyroid FNA. Consider repeat thyroid US if indicated. Dictated by: Vance Horta M.D. The radiology attending physician has personally reviewed this study, and had reviewed and/or edited this written report and agrees with it. Electronically signed by: Benitez Diaz M.D. Narrative 05/13/2025 2:35 PM CDT EXAMINATION: CHANGE CONSULT ON OUTSIDE IMAGES TO REFERENCE IMAGES This thyroid ultrasound study was initially nominated as a consult on outside images via Image Sharing Service. A consult was not performed because the quality of provided images is insufficient for interpretation without cine clips. Accordingly, there will be no separate report of this study generated by a [facility] Radiologist. Procedure Note Benitez Diaz MD - 05/13/2025 EXAMINATION: CHANGE CONSULT ON OUTSIDE IMAGES TO REFERENCE IMAGES This thyroid ultrasound study was initially nominated as a consult on outside images via Image Sharing Service. A consult was not performed because the quality of provided images is insufficient for interpretation without cine clips. Accordingly, there will be no separate report of this study generated by a [facility] Radiologist. IMPRESSION: Available images are not adequate for interpretation or to determine need for thyroid FNA. Consider repeat thyroid US if indicated. Dictated by: Vance Horta M.D. The radiology attending physician has personally reviewed this study, and had reviewed and/or edited this written report and agrees with it. Electronically signed by: Benitez Diaz M.D. us Benitez Hunt MD [facility] US PROCEDURES Final Result * Thyroid Function Nobles (04/13/2025 12:32 PM CDT) TSH 2.66 mIU/L [facility] Comment: Reference Range > or = 20 Years 0.40-4.50 Ranges First trimester 0.26-2.66 Second trimester 0.55-2.73 Third trimester 0.43-2.91 Blood 04/13/2025 12:3 2 PM CDT 04/13/2025 12:33 PM CDT Narrative [facility] - 04/14/2025 9:49 AM CDT FASTING:NO FASTING: NO Kary Plascencia DO LAB BLOOD ORDERABLES Final Result Performing Organization Address [facility]/State/ZIP Co de Phone Number AARTI [place] [address] [address] [place] [phone] * T3, free (04/12/2025 12:37 PM CDT) Free T3 3.0 2.3 - 4.2 pg/mL [facility] Blood 04/12/2025 12:3 7 PM CDT 04/12/2025 12:37 PM CDT Narrative [facility] - 04/13/2025 8:01 AM CDT FASTING:NO FASTING: NO Kary Plascencia DO LAB BLOOD ORDERABLES Final Result Performing Organization Address [facility] Co de Phone Number AARTI [place] [address] [address] [place] [phone] * T4, free (04/12/2025 12:37 PM CDT) Free T4 1.0 0.8 - 1.8 ng/dL [facility] Blood 04/12/2025 12:3 7 PM CDT 04/12/2025 12:37 PM CDT Narrative [facility] - 04/13/2025 8:01 AM CDT FASTING:NO FASTING: NO Kary Plascencia DO LAB BLOOD ORDERABLES Final Result Performing Organization Address [facility] Co de Phone Number AARTI [place] [address] [place] [phone] from Last 3 Months Insurance BLUE ACCESS OOS Member Subscriber Plan / Payer (Ef fective 2021-Present) Name:Ankita Rosario Relation to Subscriber:Spouse Name:TENZIN ROSARIO Date of :1996 (Home) Address: [address] [place] [address] Payer ID:[id number] (NAIC) Type:[facility] Address: [address] [facility] BLUE ACCESS OOS Care Teams Press Washer Relationship Specialty Start Date End Date Mary Koenig NP [address] [place] [address] PCP - General 12/14/20 Kandace Ashley NP [address] [place] [address] [place] [address] Nurse Practitioner Nurse Practitioner 05/03/25
[2025-06-09 19:59] LABS: Add Urine Microscopic? YES; Appearance Urine Cloudy (Clear); Glucose Urine UA Negative (Negative); Leukocyte Esterase Ur 1+ LEU/UL (Negative); Nitrate Urine Negative (Negative); Non Pathogenic Casts 0-2; Specific Grav Ur 1.020 (1.001-1.035)
== END 2025-06-09 12:31 | disposition home or self-care (01) ==
LOC: ANHBWCLAB 12:30
PROVIDERS: PCP Nurse Practitioner Adult Health; Visit Provider Nurse Practitioner Adult Health
DX: R39.9 Unspecified symptoms and signs involving the genitourinary system (principal)
CPT/HCPCS: 81001; 87086

== ENCOUNTER 2025-07-15 12:15 | Emergency (ER) | payer BC, OTHER, SELFPAY ==
[2025-07-15 12:18] VITALS: BP 103/68; PULSE 96; RESP 20; TEMP 37; O2SAT 100
--- OUTSIDE RECORDS SUMMARY | 2025-07-15 12:19 | XMS_ITS | Encounter Summary ---
Author Organization [facility] Healthcare Address [address] [place] [address] Care Team Providers Care Grey Goods Tester Name Role Phone Mary Koenig TOOL DESIGNER APPRENTICE Primary Care Provider [phone] Kandace Ashley TOOL DESIGNER APPRENTICE Unavailable [phone] Encounter Details Date Type Department Care Team (Late st Contact Info) Description 06/04/2025 Results Follow-Up [facility] [address] [address] Alysha Johnson MD [address] [place] [address] Volume and period, urine, 24 hour, Metanephrines, urine, 24 hour Social History Tobacco Use [...] on file 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
--- OUTSIDE RECORDS SUMMARY | 2025-07-15 12:19 | XMS_ITS | Patient Health Record ---
Author Organization [facility] Address [address] [place], [place] [address] Care Team Providers Care Tire Service Supervisor Name Role Phone Christi Khan Unavailable [phone] Allergies No Known Allergies Results Component Value Reference Range Flag Notes PTH, INTACT AND CALCIUM (883 7) Reviewed date:06/24/2025 05:45:10 PM Interpretation: Performing Lab:[facility]-Pntyoh51096Aliya Mulligan, VplqmdAM[address] Catherine Lerner MD Notes/Report: FASTING:YES FASTING: YES PARATHYROID HORMONE, INTACT 35 16-77 pg/mL N Normal Parathyroid Normal Normal Hypoparathyroidism Low or Low Normal Low Hyperparathyroidism Primary Normal or High High Secondary High Normal or Low Tertiary High High Non-Parathyroid Hypercalcemia Low or Low Normal High Interpretive Guide Intact PTH Calcium ------- CALCIUM 9.2 8.6-10.2 mg/dL N MAGNESIUM (622) Reviewed date:06/24/2025 05:45:10 PM Interpretation: Performing Lab:[facility]-Bucdbu17450Aliya Mulligan, MgauhiSA[address] Catherine Lerner MD Notes/Report: FASTING:YES FASTING: YES MAGNESIUM 2.0 1.5-2.5 mg/dL N .COMPREHENSIVE METABOLIC [place] (32914) [facility] Reviewed date:06/24/2025 05:45:10 PM Interpretation: Performing Lab:[facility] BASILIOa101Aliya Mulligan, ZhsetgAG[address] Catherine Lerner MD Notes/Report: FASTING:YES FASTING: YES GLUCOSE 76 65-99 mg/dL N Fasting reference interval UREA NITROGEN (BUN) 6 7-25 mg/dL L CREATININE 0.65 0.50-0.96 mg/dL N EGFR 124 > OR = 60 mL/min/1.73m2 N BUN/CREATININE RATIO 9 6-22 (calc) N SODIUM 139 135-146 mmol/L N POTASSIUM 3.8 3.5-5.3 mmol/L N CHLORIDE 103 98-110 mmol/L N CARBON DIOXIDE 30 20-32 mmol/L N CALCIUM 9.2 8.6-10.2 mg/dL N PROTEIN, TOTAL 7.3 6.1-8.1 g/dL N ALBUMIN 4.9 3.6-5.1 g/dL N GLOBULIN 2.4 1.9-3.7 g/dL (calc) N ALBUMIN/GLOBULIN RATIO 2.0 1.0-2.5 (calc) N BILIRUBIN, TOTAL 0.8 0.2-1.2 mg/dL N ALKALINE PHOSPHATASE 42 31-125 U/L N AST 14 10-30 U/L N ALT 10 6-29 U/L N TSI (THYROID STIMULATING IMM UNOGLOBULIN) (51176) Reviewed date:07/01/2025 11:02:58 PM Interpretation: Performing Lab:[facility],[address] [facility] HospitalCA[address] Radha Luna MD,PhD,LORI Notes/Report: FASTING:YES FASTING: YES TSI <89 <140 % baseline hyperthyroidism should have both TSI and human Chorionic Gonadotropin (hCG) tests measured. A serum hCG level greater than 40,625 mIU/mL can interfere with the TSI bioassay and may give false negative results. In these patients it is recommended that a second TSI be obtained when the hCG concentration falls below 40,625 mIU/mL (usually after approximately 20-weeks gestation). The analytical performance characteristics of this assay have been determined by [facility] Thyroid stimulating immunoglobulins (TSI) can engage the TSH receptors resulting in hyperthyroidism in Graves' disease patients. TSI levels can be useful in monitoring the clinical outcome of Graves' disease as well as assessing the potential for hyperthyroidism from maternal- transfer. TSI results greater than or equal to (>=) 140% of the Reference Control are considered positive. NOTE: A serum TSH level greater than 350 micro-International Units/mL can interfere with the TSI bioassay and potentially give false positive results. Patients who are and are suspected of having Harrison. The modifications have not been cleared or approved by the FDA. This assay has been validated pursuant to the CLIA regulations and is used for clinical purposes. .CBC (INCLUDES DIFF/PLT) (63 99) Reviewed date:06/24/2025 05:45:10 PM Interpretation: Performing Lab:[facility]-Ieiodp21594 Yahir Mulligan, XayipnCI[address] Catherine Lerner MD Notes/Report: FASTING:YES FASTING: YES WHITE BLOOD CELL COUNT 5.1 3.8-10.8 Thousand/uL N RED BLOOD CELL COUNT 4.04 3.80-5.10 Million/uL N HEMOGLOBIN 12.3 11.7-15.5 g/dL N HEMATOCRIT 37.9 35.0-45.0 % N MCV 93.8 80.0-100.0 fL N MCH 30.4 27.0-33.0 pg N MCHC 32.5 32.0-36.0 g/dL N For adults, a slight decrease in the calculated MCHC value (in the range of 30 to 32 g/dL) is most likely not clinically significant; however, it should be interpreted with caution in correlation with other red cell parameters and the patient's clinical condition. RDW 12.7 11.0-15.0 % N PLATELET COUNT 351 140-400 Thousand/uL N MPV 8.8 7.5-12.5 fL N ABSOLUTE NEUTROPHILS 2713 6144-2871 cells/uL N ABSOLUTE LYMPHOCYTES 4193 807-9693 cells/uL N ABSOLUTE MONOCYTES 393 200-950 cells/uL N ABSOLUTE EOSINOPHILS 92 15-500 cells/uL N ABSOLUTE BASOPHILS 51 0-200 cells/uL N NEUTROPHILS 53.2 N LYMPHOCYTES 36.3 N MONOCYTES 7.7 N EOSINOPHILS 1.8 N BASOPHILS 1.0 N THYROID PEROXIDASE ANTIBODIE S (5081) Reviewed date:06/29/2025 08:04:48 PM Interpretation: Performing Lab:BETTINA [facility]-Bill Tabx9617 Rejitered Mulligan, Bill IgrzRQ[address] Shlomo Martinez Notes/Report: FASTING:YES FASTING: YES THYROID PEROXIDASE ANTIBODIES 682 <9 IU/mL H .HEMOGLOBIN A1c (496) Reviewed date:06/24/2025 05:45:10 PM Interpretation: Performing Lab:[facility]08111 Administration Sheri Rojas DxxduddYN[address] Catherine Lerner Notes/Report: FASTING:YES FASTING: YES HEMOGLOBIN A1c 4.9 <5.7 % of total Hgb N For the purpose of screening for the presence of diabetes: <5.7% Consistent with the absence of diabetes 5.7-6.4% Consistent with increased risk for diabetes (prediabetes) > or =6.5% Consistent with diabetes This assay result is consistent with a decreased risk of diabetes. Currently, no consensus exists regarding use of hemoglobin A1c for diagnosis of diabetes in children. According to Canadian Diabetes Association (ADA) guidelines, hemoglobin A1c <7.0% represents optimal control in non- diabetic patients. Different metrics may apply to specific patient populations. Standards of Medical Care in Diabetes(ADA). INSULIN (561) Reviewed date:06/24/2025 05:45:10 PM Interpretation: Performing Lab:[facility]-Gxybkw78473 Joe Epstein[address] Catherine Lerner MD Notes/Report: FASTING:YES FASTING: YES INSULIN 3.8 N Reference Range < or = 18.4 Risk: Optimal < or = 18.4 Moderate NA High >18.4 Adult cardiovascular event risk category cut points (optimal, moderate, high) are based on Insulin Reference Interval studies performed at [facility] in 2021. T4, FREE (866) Reviewed date:06/24/2025 05:45:10 PM Interpretation: Performing Lab:[facility]-Myefpo38064 Marie EpsteinaKS[address] Catherine Lerner MD Notes/Report: FASTING:YES FASTING: YES T4, FREE 1.0 0.8-1.8 ng/dL N TSH (899) Reviewed date:06/24/2025 05:45:10 PM Interpretation: Performing Lab:[facility] BASILIOa10101 Marie EpsteinaKS[address] Catherine Lerner MD Notes/Report: FASTING:YES FASTING: YES TSH 4.16 N Reference Range > or = 20 Years 0.40-4.50 Ranges First trimester 0.26-2.66 Second trimester 0.55-2.73 Third trimester 0.43-2.91 T3, FREE (06557) Reviewed date:06/24/2025 05:45:10 PM Interpretation: Performing Lab:[facility], [facility]-Bssgbv05070 Yahir Mulligan, LeinimYM[address] Catherine Lerner MD Notes/Report: FASTING:YES FASTING: YES T3, FREE 2.8 2.3-4.2 pg/mL N Reason For Referral No Information Medications Medication SIG (Take, Route, Frequency, Duration) Notes Start Date End Date Status ARIPiprazole 15 MG Tablet 1 tablet Orall y Once a day Active Propranolol HCl 10 MG Tablet 1 tablet on an empty stomach Orally every 12 hrs; Duration: 90 days Active Gabapentin 300 MG Capsule 1 capsule Oral ly Once a day Active cloNIDine 0.1 MG/24HR Patch Weekly 1 patch to skin Transdermal Active Sertraline HCl 100 MG Tablet 1 tablet Orally Once a day Active Sertraline HCl 50 MG Tablet 1 tablet Ora lly Once a day Active busPIRone HCl 7.5 MG Tablet 1 tablet Ora lly Twice a day Active Social History Section Notes: tobacco: no alcohol: no caffeine: yes, daily tobacco: no alcohol: no caffeine: yes, daily Problems Problem Type SNOMED Code ICD Code Onset Dates Problem Status W/U Status Risk Notes Problem Autoimmune thyroiditis (88182476) Autoimmune thyroiditis (E06.3) Active confirmed Problem Vitamin D deficiency (38432347) Vitamin D deficiency, unspecified (E55.9) Active confirmed Problem Overweight (883553640) Overweight (E66.3) Active confirmed Problem Endometriosis (150656783) Endometriosis (N80.9) Active confirmed Problem Thyroid nodule (619446700) Thyroid nodule (E04.1) Active confirmed Problem Hypothyroidism (34695838) Hypothyroidism (E03.9) Active confirmed Vital Signs Heart Rate 88 /min 06/25/2025 Height-cm 167.64 cm 06/25/2025 Oximetry 98 % 06/25/2025 Blood pressure diastolic 72 mm Hg 06/25/2025 Weight-kg 75.48 kg 06/25/2025 Height 66 in 06/25/2025 Blood pressure systolic 108 mm Hg 06/25/2025 Weight 166.4 lbs 06/25/2025 BMI 26.85 kg/m2 06/25/2025 Encounters Encounter Location Date Provider Diagnosis [facility] [address] Khan [address] [place] [address] 05/14/2025 Christi Bill Overweight E66.3 ; Autoimmune thyroiditis E06.3 ; Other fatigue R53.83 ; Vitamin D deficiency, unspecified E55.9 ; Thyroid nodule E04.1 and Dietary counseling and surveillance Z71.[address] Khan [id number] [place] [address] 06/25/2025 Christi Khan Autoimmune thyroidi tis E06.3 ; Overweight E66.3 ; Dietary counseling and surveillance Z71.3 ; Dizziness R42 and Poor nutrition E63.9 Assessments Encounter Date Diagnosis (ICD Code) Assessment Notes Treatment Notes Treatment Clinical Notes Section Notes 05/14/2025 Autoimmune thyroiditis (ICD-10 - E06.3) 05/14/2025 Overweight (ICD-10 - E66.3) 06/25/2025 Autoimmune thyroiditis (ICD-10 - E06.3) 06/25/2025 Overweight (ICD-10 - E66.3) 06/25/2025 Dietary counseling and surveillance (ICD-10 - Z71.3) Spent 15 minutes preventative counseling patient on dietary recommendations and changes in setting of hyperglycemia- need to restrict refined sugars and processed foods and incorporate up to 150 minutes of moderate level activity weekly. 05/14/2025 Other fatigue (ICD-10 - R53.83) 05/14/2025 Vitamin D deficiency, unspecified (ICD-10 - E55.9) 06/25/2025 Dizziness (ICD-10 - R42) 06/25/2025 Poor nutrition (ICD-10 - E63.9) 05/14/2025 Thyroid nodule (ICD-10 - E04.1) 05/14/2025 [...] examination and/or evaluation, counseling and educating the patient/family/home care scheduler, ordering medications, tests, or procedures, referring and communicating with other health home care giver, documenting clinical information in the electronic or other health record, independently interpreting results and communicating results to the patient/family/home care scheduler and care coordinating patient plan. Patient alert and oriented x 4 and aware of discussion noted above and in agreeance to plan in management of weight management, autoimmune thyroiditis, palpitations/anxiet y, fatigue, thyroid nodule and other hormonal concerns. 06/25/2025 Other Assessment and Plan: 1. Tachycardia and dizziness- Discontinue propranolol- Continue metoprolol as prescribed by technical sales manager for heart rate control- Recommend eating every 4 hours, even small amounts, to maintain blood glucose levels- Advise consuming 1200 calories per day minimum- Suggest protein shakes as meal supplements, especially in the mornings- Encourage adequate hydration with water, potentially flavored with lemon, cucumbers, or berries- Provide patient with pamphlet on calorie counting and food exchanges 2. Subclinical hypothyroidism- Recommend holistic thyroid support vitamin containing iodine and magnesium- Advise gluten-free diet, focusing on fruits, vegetables, lean meats, and protein- Suggest acting as though patient has Pete's due to environmental triggers- Monitor thyroid function with follow-up labs Follow-up:- Follow up in a few months to reassess thyroid function and symptoms Spent 15 minutes preparing to see the patient (ex review of tests/chart), obtaining and / or reviewing separately obtained history, performing a medically appropriate examination and/or evaluation, counseling and educating the patient/family/home care scheduler, ordering medications, tests, or procedures, referring and communicating with other health home care giver, documenting clinical information in the electronic or other health record, independently interpreting results and communicating results to the patient/family/home care scheduler and care coordinating patient plan. Patient alert and oriented x 4 and aware of discussion noted above and in agreeance to plan in management of autoimmune thyroiditis/possibl e, along with poor caloric intake likely causing dizziness and tachycardia as patient A1C low and food intake low due to busy lifestyle /structure. Plan Of Treatment Next Appt Details Provider Name:Christi Bill, 10:00:00 AM, [address] [facility], [place], [address], Insurance Providers Payer Name Payer Address Payer Phone Subscriber Number Group Number Insured Name Patient Relationship to Insured Coverage Start Date Coverage End Date [facility] [address] [place] [address] [id number] ELSIE DE LA CRUZ Self - patient is the insured [address] [address] [id number] ELSIE DE LA CRUZ Self - patient is the insured Medical (General) History Medical History History ICD Code Hypothyroidism E03.9 Endometriosis N80.9 Surgical History Surgery Date(Month/Year) multiple surgeries for endometriosis c-sections X2 tubal ligation partial hysterectomy
--- OUTSIDE RECORDS SUMMARY | 2025-07-15 12:19 | XMS_ITS | Clinical Summary ---
Author Organization [facility] Health Address [address] [facility] [place] [address] Care Team Providers Care Potato Seed Cutter Name Role Phone Mary Koenig ART Primary Care Provider [phone] Source Comments [facility],non-owned Affiliates and Associated Physician Practices is amultiple site organization consisting of ambulatory clinics and hospital sitesin [place], [place], [place] and [place]. This disclosure is being madepursuant to the Care Everywhere program and may not contain all information available regarding this patient. 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
--- OUTSIDE RECORDS SUMMARY | 2025-07-15 12:19 | XMS_ITS | Encounter Summary ---
Author Organization [facility] Address [address] [place] [address] Phone Care Team Providers Care Rn Practitioner Name Role Phone Arya, Mary Pike RN CLINICIAN Primary Care Provider [phone] Kandace Ashley RN CLINICIAN Unavailable [phone] Encounter Details Date Type Department Care Team (Late st Contact Info) Description 05/13/2025 Results Follow-Up [facility] Medicine Surgery [address] [facility] [address] [place] [address] Benitez Hunt MD [address] [place] [id number] [place] Outside Consult Social History Tobacco [...] on file 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
--- OUTSIDE RECORDS SUMMARY | 2025-07-15 12:19 | XMS_ITS | Clinical Summary ---
Author Organization [facility] Address [address] 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 Pulse 93 11/30/2024 10:45 PM ANTIQUE JEWELRY REPAIRER Temperature 36.7 C (98.1 F) 11/30/2024 10:03 PM ANTIQUE JEWELRY REPAIRER Respiratory Rate 17 11/30/2024 10:45 PM ANTIQUE JEWELRY REPAIRER Oxygen Saturation 100% 11/30/2024 10:45 PM ANTIQUE JEWELRY REPAIRER Inhaled Oxygen Concentration - - Weight 68 kg (150 lb) 11/30/2024 10:03 PM ANTIQUE JEWELRY REPAIRER Height 167.6 cm (5' 6) 11/30/2024 10:03 PM ANTIQUE JEWELRY REPAIRER Body Mass Index 24.21 11/30/2024 10:03 PM ANTIQUE JEWELRY REPAIRER Plan of Treatment Health Maintenance Due Date Last Done Comments Hepatitis C Virus (HCV) Screening 1997 Hepatitis B Immunization (1 of 3 - 19+ 3-dose series) 2016 Human Papillomavirus (HPV) Immunization (1 - 3-dose SCDM series) 2024 Influenza Immunization (#1) 06/14/202506/15, 09/20/2020, 07/08/2019 SARS-COV-2 Immunization ( - 2023- season) 2025 Respiratory Syncytial Virus (RSV) Immunization (Adult) (1 [...] to complete this topic Insurance MEDICAID [facility] Care Teams Billing Spec Relationship Specialty Start Date End Date Mary Koenig APRN, CLIENT RENEWAL SPECIALIST PCP - General Family Medicine 04/29/20
--- OUTSIDE RECORDS SUMMARY | 2025-07-15 12:19 | XMS_ITS | Clinical Summary ---
Author Organization [facility] Address [address] [place] [address] Care Team Providers Care Wire Saw Operator Name Role Phone Mary Koenig NP Primary Care Provider [phone] Kandace Ashley SUPERVISOR SILVERING DEPARTMENT Unavailable [phone] Allergies No known active allergies Medications [...] Department Care Team Description 06/04/2025 Results Follow-Up [facility] Special[facility] of [address] [phone] Alysha Johnson MD Volume and period, urine, 24 hour, Metanephrines, urine, 24 hour 06/03/2025 8:22 AM CDT - 06/03/2025 11:59 PM CDT Hospital Encounter [facility] [address] [place] [address] Palpitation Discharge Disposition: Discharge to home or self care 05/24/2025 Results Follow-Up [facility] of [address] [phone] Vera Lewis MA Comprehensive metabolic panel, Cortisol, eGFR 05/21/2025 9:10 AM CDT Lab [address] [phone] Palpitation 05/21/2025 8:00 AM CDT Office Visit [facility] of [address] [phone] Alysha Johnson MD Pete thyroiditis (Primary Dx); Palpitation; Thyromegaly 05/20/2025 2:30 PM CDT Office Visit [facility] [address] [place] [address] [address] [place] [phone] Benitez Hunt MD Thyroid nodule 05/20/2025 Telephone [facility] Specialists [facility] [id number] [place] [address] [address] [place] [address] Alysha Johnson MD friendly reminder 05/20/2025 Orders Only [facility] [address] [place] [phone] Benitez Hunt MD Thyroid nodule (Primary Dx) 05/20/2025 Orders Only [facility] [address] [place] [phone] Benitez Hunt MD Thyroid nodule (Primary Dx) 05/19/2025 7:19 AM CDT - 05/19/2025 11:59 PM CDT Hospital Encounter [facility] [address] [place] [address] Thyroid nodule Discharge Disposition: Discharge to home or self care 05/17/2025 Telephone [facility] [address] [place] [address] Edna León RN 05/14/2025 Orders Only [facility] [address] [place] [phone] Benitez Hunt MD Thyroid nodule (Primary Dx) 05/13/2025 12:44 PM CDT - 05/13/2025 11:59 PM CDT Hospital Encounter [facility] ([facility]) [address] [place] [address] Discharge Disposition: Discharge to home or self care 05/13/2025 Results Follow-Up [facility] [address] [place] [phone] Benitez Hunt MD US Outside Consult 05/12/2025 Orders Only [facility] [address] [place] [address] 8 [place] [phone] Benitez Hunt MD Right thyroid nodule (Primary Dx) 05/07/2025 Telephone [facility] [address] [place] [address] Edna León RN 05/07/2025 Telephone [facility] [address] [place] [address] Edna León RN 04/26/2025 Telephone [facility] [address] [place] [address] Audrey Anthony RN from Last 3 Months Surgical History Surgery [...] on file 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 Gender Identity Female 08/07/2021 10:07 [...] HOUR Routine 06/03/2025 10:27 AM CDT Palpitation METANEPHRINES, URINE, 24 HOUR RESULT Routine 06/03/2025 10:27 AM CDT Palpitation METANEPHRINES, URINE, 24 HOUR Routine 06/03/2025 10:27 AM CDT Palpitation EGFR Routine 05/21/2025 9:15 AM CDT Palpitation CORTISOL Routine 05/21/2025 9:15 AM CDT Palpitation COMPREHENSIVE METABOLIC PANEL Routine 05/21/2025 9:15 AM CDT Palpitation US THYROID Schedule Routine, Read Routine (OP Routine) 05/19/2025 8:30 AM CDT Thyroid nodule US OUTSIDE CONSULT Routine 05/13/2025 12 :44 PM CDT from Last 3 Months Results * Metanephrines, urine, 24 hour (06/03/2025 10:27 AM CDT) Metanephrines, 24 hr ur 69 mcg/24H [facility] Comment: REFERENCE VALUE 30-180 (Normotensive) <400 (Hypertensive) Testing performed by: [facility], [address] [place] [address], [id number] Metanephrines Comment Not Reported [facility] (SUSAN) Comment:Testing performed by : [facility], [address] [place] [address]., [id number] Normetanephrine, 24 hour ur 147 mcg/24H [facility] (SUSAN) Comment: REFERENCE VALUE 103-390 (Normotensive) <900 (Hypertensive) Testing performed by: [facility], [address] [place] [address]., [address] Metanephrine, Total, 24 Hour Urine 216 mcg/24H [facility] (SUSAN) Comment: REFERENCE VALUE 142-510 (Normotensive) <1300 (Hypertensive) Performed by: [address] [place] [address] Psychiatric Aide Instructor: Benitez Sykes II, MD, PhD Testing performed by: [address], [address] Urine 06/03/2025 10:2 7 AM CDT 06/07/2025 11:35 AM CDT us Alysha Johnson MD LAB URINE ORDERABLES Final Resul t [facility] MURRAY (SUSAN) 1 [facility] Department [place] [address] [facility] * Volume and period, urine, 24 hour (06/03/2025 10:27 AM CDT) Volume, ur 1,275 mL Comment:Testing performed by : [facility], [address] [place] [address]., [address] Period, Urine Collection 1,440 min [facility] GA[facility] (SUSAN) Comment:Testing performed by : [facility], [address] [place] [address]., [id number] Urine 06/03/2025 10:2 7 AM CDT 06/03/2025 12:28 PM CDT Alysha Johnson MD LAB URINE ORDERABLES Final Resul t [facility] (SUSAN) 1 [facility] [place] [address] * eGFR (05/21/2025 9:15 AM CDT) eGFR [...] of Race in Diagnosing Kidney Disease, JASN 2020). The CKD-EPI equation should not be used for patients with unstable renal function and has not been validated in children and those over 70. Current interpretive data was last reviewed 2021. Blood 05/21/2025 9:15 AM CDT 05/21/2025 12:03 PM CDT Alysha Johnson MD LAB BLOOD ORDERABLES Final Resul t [facility] [id number] [place] [address] Department [place] [address] * Cortisol (05/21/2025 9:15 AM CDT) Cortisol [...] MD LAB BLOOD ORDERABLES Final Resul t [facility] [address] [address] Department [place] [address] * (ABNORMAL) Comprehensive metabolic panel (05/21/2025 9:15 AM CDT) Sodium 140 135 - 145 mmol/L Potassium, pl 3.9 3.3 - 4.9 mmol/L [facility] Chloride 105 97 - 110 mmol/L [facility] CO2 26 22 - 32 mmol/L [facility] Anion gap 9 2 - 15 mmol/L [facility] BUN 8 6 - 25 mg/dL [facility] Creatinine 0.72 0.60 - 1.10 mg/dL [facility] Glucose 69(L) 70 - 199 mg/dL [facility] Comment: Interpretive Data Fasting glucose >/= 126 [...] total 0.7 0.1 - 1.2 mg/dL [facility] Protein, pl 7.8 6.5 - 8.5 g/dL [facility] Albumin 4.8 3.5 - 5.0 g/dL [facility] Alk phos 50 40 - 130 Units/L [facility] ALT 11 7 - 45 Units/L [facility] AST 19 10 - 45 Units/L [facility] Blood 05/21/2025 9:15 AM CDT 05/21/2025 11:48 AM CDT us Alysha Johnson MD LAB BLOOD ORDERABLES Final Resul t [facility] [address] [address] Department [place] [address] * US Thyroid (05/19/2025 8:30 AM CDT) [...] CDT) Anatomical Region Laterality Modality Ultrasound 05/13/2025 2:23 PM CDT Impressions 05/13/2025 2:35 PM CDT [...] report of this study generated by a [facility] Radiologist. Procedure Note Benitez Diaz MD - [...] report of this study generated by a [facility] Radiologist. IMPRESSION: Available images are not adequate for interpretation or to determine need for thyroid FNA. Consider repeat thyroid US if indicated. Dictated by: Vance Horta M.D. The radiology attending physician has personally reviewed this study, and had reviewed and/or edited this written report and agrees with it. Electronically signed by: Benitez Diaz M.D. us Benitez Hunt MD IMG US PROCEDURES Final Result from Last 3 Months Insurance [place] [address] [place] [address] [facility] Care Teams Wire Saw Operator Relationship Specialty Start Date End Date Mary Koenig NP [address] [place] [address] PCP - General 12/14/20 Kandace Ashley NP [address] [place] [address] [place] [address] Nurse Practitioner Nurse Practitioner 05/03/25
--- NOTE | 2025-07-15 12:51 | ED.URI ---
HPI - URI/Sore Throat General Chief Complaint: Upper Respiratory Infection Stated Complaint: Sore Throat Time Seen by Provider: 07/15/25 12:25 Source: patient, RN notes reviewed and old records reviewed Mode of arrival: ambulatory Limitations: no limitations History of Present Illness HPI Narrative: 30-year-old female presents to the [facility] with complaints of a sore throat. Sore throat x2 days Children at home positive for strep Related Data Home Medications ?Medication ?Instructions ?Recorded ?Confirmed ?Last Taken ?Type sertraline 100 mg tablet 100 mg PO DAILY 04/16/23 06/11/25 Unknown History aripiprazole 5 mg tablet (Abilify) 5 mg PO DAILY 03/25/25 06/11/25 Unknown History buspirone 7.5 mg tablet 7.5 mg PO BID 03/25/25 06/11/25 Unknown History sertraline 50 mg tablet 50 mg PO DAILY 03/25/25 06/11/25 Unknown History Allergies Allergy/AdvReac Type Severity Reaction Status Date / Time No Known Allergies Allergy Unknown Verified 07/15/25 12:18 Review of Systems Review of Systems: All systems reviewed & are unremarkable except as noted in HPI and below Constitutional: Constitutional: Reports no additional constitutional complaints ENT: Reports as per HPI and Reports sore throat Cardiovascular: Cardiovascular: Reports no additional cardiovascular complaints, Denies chest pain and Denies dyspnea Respiratory: Respiratory: Reports no additional respiratory complaints, Denies chest congestion, Denies cough and Denies dyspnea Musculoskeletal: Musculoskeletal: Reports no additional musculoskeletal complaints Integumentary/Breasts: Skin/Breast: Reports system reviewed and no additional complaints, except as docu PMFSH Past Medical History Medical History Endometriosis Anxiety Headache, migraine Depression Surgical History Surgical History Hx of laparoscopy removal of ovarian cyst, endometriosis H/O section Family History Family History Grandparent Diabetes mellitus Non-Hodgkin lymphoma Dementia Cerebrovascular accident Mother Breast cancer Depression Father Alcohol abuse Bipolar affective disorder Grandparent Breast cancer Brain cancer Carcinoma of colon Grandparent Carcinoma of colon Social History Social History (Reviewed 07/16/25 @ 16:44 by JAZZY Jensen Smoking status: Never smoker Alcohol intake: never Alcohol use details: twice a year Substance use type: does not use Do You Feel Safe in your Home?: Yes Lack of Transportation: No Lack of Food: Never True Current Housing: I Have Housing Concerned About Future Housing: No Difficulty Paying Gas/Electric Bills: No Difficulty Paying for Meds: No Currently Unemployed: No Education: High School Diploma/GED Difficulty w/ Childcare or Family Care: No Living arrangements: with family Occupation/Education: unemployed Gender identity (if verbalized by the patient): Female Spiritual care concerns: No Agree to blood products: Yes Comments At the time of my signature, I reviewed and agree with the nursing past medical, surgical, social, and family history. There is no relevant family history pertinent to the patient complaint. Exam Const: General: cooperative, healthy appearing, comfortable, no acute distress, well developed, alert and well nourished Nutritional Appearance: well nourished Orientation/consciousness: patient oriented x3 Limitations: no limitations HENMT: Head: normal to inspection Ears: hearing grossly normal bilaterally, external ears normal, TM's normal bilaterally, EAC's normal, mastoids normal and no periauricular adenopathy Mouth: Yes Normal oral and palatal mucosa present, Yes lip normal, Yes tongue normal and Yes moist mucous membranes Throat: uvula midline, abnormal tonsil bilateral erythema and hypertrophy 2+ and no uvular edema Eyes: General: appearance normal, both eyes and all related structures Alignment and Position: alignment normal Neck: Neck: normal visual inspection, full ROM, no lymphadenopathy and no meningeal signs Chest: Chest palpation & inspection: normal inspection of the chest Resp: Effort & Inspection: normal respiratory effort and able to speak in complete sentences Auscultation: clear to auscultation bilaterally, no crackles, no rales, no rhonchi and no wheezes Cardio: Rate: regular rate Skin: General skin exam: normal color and no rashes or lesions noted Neuro: General: patient oriented x3, gait normal, moves all extremities and no meningeal signs Cognition (Neuro): normal cognition Speech: normal speech Gait exam (Neuro): Normal gait present Extrem: General: normal to inspection, full ROM, capillary refill normal and normal gait Psych: Appearance: grossly normal and well kempt Mental Status: mental status grossly normal Speech and movement: Normal speech and movement present and Clear speech present Affect: normal affect Attitude: cooperative Course Course Level of Care: Express Care Visit Vital Signs Vital signs: Vital Signs Temperature 98.6 F 07/15/25 12:18 Pulse Rate 96 07/15/25 12:18 Respiratory Rate 20 07/15/25 12:18 Blood Pressure 103/68 07/15/25 12:18 Pulse Oximetry 100 07/15/25 12:18 Oxygen Delivery Room Air 07/15/25 12:18 Temperature 98.6 F 07/15/25 12:18 Pulse Rate 96 07/15/25 12:18 Respiratory Rate 20 07/15/25 12:18 Blood Pressure 103/68 07/15/25 12:18 Pulse Oximetry 100 07/15/25 12:18 Oxygen Delivery Room Air 07/15/25 12:18 Reviewed MDM - URI/Sore Throat MDM Narrative Medical decision making narrative: Patient sitting in exam room. Patient is nontoxic, vitals stable. Patient presents with 2 day history of a sore throat. Exposure to strep. Patient is strep positive. Patient appropriate for outpatient treatment with close follow-up Discharge instructions reviewed with patient, as well as provided in writing per nursing staff. The instructions also include specific and strict return/GO TO THE ER as well as f/u information. All questions have been answered, and the patient deny any further questions with discharge and discharge plan. Some parts of this dictation were generated by voice recognition software and may contain typographical and/or grammatical inaccuracies. Differential Diagnosis Differential diagnosis: Likely upper respiratory infection, otitis media, sinusitis, viral infection, bronchitis, influenza and pharyngitis Lab Data Labs: Positive strep Critical Care Time Critical Care Time Critical Care Time: No Discharge Plan Discharge Clinical Impression: Strep pharyngitis Patient Disposition: Home Condition: Stable Instructions: Antibiotic Form, Strep Throat (DC) Additional Instructions: After 24-48 hours on antibiotics, Throw the toothbrush away, start using a new one. Please be sure to wash bed linens especially pillow cases. Repeat once you finish the antibiotics. Do not share drinks. Take Motrin alternating with Tylenol for pain and fever alternating every 4 hours. Increase fluids, avoid caffeine. Give plenty of water, juice, Gatorade, Pedialyte, ice pops in Jell-O Follow up with Primary provider if not getting better this week For new or worsening symptoms go directly to the emergency room Patient Language: Romanian Prescriptions: New amoxicillin 875 mg tablet 875 mg PO Q12H Qty: 20 0RF No Action sertraline 100 mg tablet 100 mg PO DAILY aripiprazole [Abilify] 5 mg tablet 5 mg PO DAILY buspirone 7.5 mg tablet 7.5 mg PO BID sertraline 50 mg tablet 50 mg PO DAILY Patient Comments: Takes with 100mg to = 150mg daily gabapentin 300 mg capsule See Rx Instructions .ROUTE .COMPLEX Qty: 120 3RF Dose Instruction: TAKE 1 CAPSULE BY MOUTH FOUR TIMES A DAY Rx Instructions: TAKE 1 CAPSULE BY MOUTH FOUR TIMES A DAY cyclobenzaprine 10 mg tablet 10 mg PO QHS PRN (Reason: muscle spasm) Qty: 90 0RF metoprolol succinate 25 mg tablet extended release 24 hr 12.5 mg PO DAILY Qty: 45 2RF Follow-up/Referrals: Kandace Ashley APRN [Primary Care Provider, Family Practice] - 2 Weeks Clinical Impression: Strep pharyngitis Stand Alone Forms: Work/School Release IP Time of Disposition: 12:37
== END 2025-07-15 12:42 | disposition home or self-care (01) ==
PROVIDERS: Emergency Provider Nurse Practitioner; PCP Nurse Practitioner Adult Health
DX: J02.0 Streptococcal pharyngitis (principal)
CPT/HCPCS: 99213; G0463